=== PATIENT | male | born 1965 | race Caucasian/White ===

== ENCOUNTER 2016-08-26 08:13 | Emergency (ER) | payer OTHER ==
[2016-08-26] MEDS ORDERED: SODIUM CHLORIDE 0.9% 1,000 ML IV STA (08:15)
[2016-08-26] MEDS ORDERED: ONDANSETRON 4 MG/2 ML VIAL IVP STA (08:15)
[2016-08-26 08:35] VITALS: RESP 18
[2016-08-26] MEDS ORDERED: MORPHINE SULFATE 4 MG/ML SYRINGE IVP STA (08:40)
[2016-08-26] MEDS ORDERED: cloNIDine HCL 0.1 MG TAB PO STA (08:44)
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
[2016-08-26 09:02] LABS: Basophils % (A) 0 %; CH 30.2; CHCM 34.5; Eosinophils # (A) 0.2 k/uL (0-0.7); Eosinophils % (A) 1 %; HCT 49.3 % (39.0-53.0); HDW 2.41; HGB 16.8 gm/dL (13.0-17.5); Luc # (Auto) 0.15; Luc % (Auto) 1; Lymphocytes # (A) 1.6 k/uL (1.0-4.8); Lymphocytes % (A) 15 %; MCH 29.9 pg (25.0-35.0); Mean Platelet Volume 6.5; Monocytes # (A) 0.6 k/uL (0-1.0); Monocytes % (A) 5 %; Neutrophils # (A) 8.2 k/uL (1.3-7.7); Neutrophils % (A) 76 %; RBC 5.61 m/uL (4.30-5.90); RDW 13.6 % (11.5-15.5); WBC 10.7 k/uL (3.8-10.6); WBC (Perox) 10.59
[2016-08-26 09:12] LABS: ALT 49 U/L (21-72); AST 30 U/L (17-59); Alkaline Phosphatase 80 U/L (38-126); Amylase 71 U/L (30-110); Anion Gap 12 mmol/L; Blood Urea Nitrogen 12 mg/dL (9-20); Calcium 9.7 mg/dL (8.4-10.2); Carbon Dioxide 21 mmol/L (22-30); Chloride 108 mmol/L (98-107); Glucose 143 mg/dL (74-99); Non-African American GFR(MDRD) >60 (>60 ml/min/1.73 sqM); Sodium 141 mmol/L (137-145); Total Bilirubin 0.7 mg/dL (0.2-1.3); Total Protein 7.2 g/dL (6.3-8.2)
[2016-08-26] MEDS ORDERED: DILTIAZEM 5 MG/ML 5 ML VIAL IVP STA ×2 (09:14→10:23)
[2016-08-26 09:25] LABS: Potassium 4.6 mmol/L (3.5-5.1)
[2016-08-26] MEDS ORDERED: APIXABAN 5 MG TAB PO STA (09:59)
--- NOTE | 2016-08-26 10:01 | XR ---
EXAMINATION TYPE: XR chest 2V DATE OF EXAM: 08/26/2016 9:32 AM COMPARISON: None HISTORY: 50-year-old male with chest and back pain TECHNIQUE: AP and lateral views FINDINGS: The heart is upper limits of normal in size. Aorta within normal limits. There is some focal patchy r ight basilar opacity that has a somewhat linear configuration. Mild diffuse interstitial prominence i s a chronic appearance. Otherwise, no consolidation or pleural effusion. IMPRESSION: Some atelectasis or early infiltrate at the right base, the former is favored. Otherwise, there are c hronic appearing changes.
--- NOTE | 2016-08-26 10:13 | XR ---
EXAMINATION TYPE: XR KUB DATE OF EXAM: 08/26/2016 9:18 AM CLINICAL DATA: 50 year-old male abdominal pain, PHH COMPARISON: None FINDINGS: Lung bases are clear. Supine imaging limited for assessment of free air. No significant stool burden. Scattered mild stool is present. No dilated small bowel loops. Scattered pelvic phleboliths. IMPRESSION: Nonobstructive bowel gas pattern. Mild scattered stool.
[2016-08-26 11:06] VITALS: BP 140/82; PULSE 97; TEMP 98.3
== END 2016-08-26 11:09 | disposition home or self-care (01) ==
LOC: EC 08:13
DX: R11.2 Nausea with vomiting, unspecified (principal); I48.91 Unspecified atrial fibrillation; F11.23 Opioid dependence with withdrawal; G89.29 Other chronic pain; K21.9 Gastro-esophageal reflux disease without esophagitis; E78.5 Hyperlipidemia, unspecified; I10 Essential (primary) hypertension; F32.9 Major depressive disorder, single episode, unspecified; F17.200 Nicotine dependence, unspecified, uncomplicated; Z79.899 Other long term (current) drug therapy
CPT/HCPCS: 36415; 93005; 80053; 82150; 83690; 84484; 85025; 71020; 74000; 99285; 96374; 96375 ×2; 96376; 96361; J2270; J2405

== ENCOUNTER 2019-03-24 19:02 | Emergency (ER) | payer MEDICARE, OTHER ==
[2019-03-24] MEDS ORDERED: MORPHINE SULFATE 4 MG/ML SYRINGE IV STA (19:40)
[2019-03-24] MEDS ORDERED: SODIUM CHLORIDE 0.9% 500 ML 500 ML IV STA ×2 (19:40→23:12)
--- NOTE | 2019-03-24 20:07 | XR ---
EXAMINATION TYPE: XR chest 2V DATE OF EXAM: 03/24/2019 COMPARISON: 08/26/2016 HISTORY: Chest pain TECHNIQUE: 2 views FINDINGS: Heart and mediastinum are normal. Lungs are clear. Diaphragm is normal. Bony thorax appears normal. IMPRESSION: Normal chest. No change.
--- NOTE | 2019-03-24 20:22 | CT ---
EXAMINATION TYPE: CT brain lavonneine wo con DATE OF EXAM: 03/24/2019 COMPARISON: None HISTORY: Headache and neck pain. CT DLP: 1413.6 mGycm Automated exposure control for dose reduction was used. Ventricles have normal size. There is no mass effect nor midline shift. There is no sign of intracran ial hemorrhage. Calvarium is intact. Skull base appears intact. Cervical vertebra have normal alignment. There is degenerative disc space narrowing at C5-6 with spur ring of the endplates. Facet joints are intact. There is no evidence of a fracture. There is mild [place] rowing at C6-7 disc. IMPRESSION: Negative CT scan of the brain. Moderate spondylotic changes in the lower cervical spine. No fracture.
--- NOTE | 2019-03-24 21:26 | ED ---
General Adult HPI - General Chief complaint: Headache Stated complaint: Headache Time Seen by Provider: 03/24/19 19:17 Source: EMS, RN notes reviewed, old records reviewed Mode of arrival: EMS Limitations: no limitations - History of Present Illness Initial comments: 53-year-old male patient with past history significant for atrial fibrillation, hypertension, hyperlipidemia presents to ED for chief complaint of headache and neck pain. Reports that the back pain is chronic from the headache just began today, describes it as located in the frontal lobe. Denies worst headache of life, not thunderclap onset. Patient is a relatively poor historian. Patient reports that he had a recent admission to [facility] for reported heart attack. Patient denies any surgery. Patient reports that he has recommended outpatient cardiac catheterization. His anticoagulated on eliquis. Denies any other complaints at this time. Denies chest pain or short of breath at this time. Systemic: Pt denies fatigue, fever/chills, rash. Pt denies weakness, night sweats, weight loss. Neuro: Pt denies visual disturbances, syncope or pre-syncope. HEENT: Pt denies ocular discharge or irritation, otalgia, rhinorrhea, pharyngitis or notable lymphadenopathy. Cardiopulmonary: Pt denies chest pain, SOB, heart palpitations, dyspnea on exertion. Abdominal/GI: Pt denies abdominal pain, n/v/d. : Pt denies dysuria, burning w/ urination, frequency/urgency. Denies new onset urinary or bowel incontinence. MSK: Pt denies myalgia, loss of strength or function in extremities. Neuro: Pt denies new onset weakness, paresthesias. - Related Data Home Medications Medication Instructions Recorded Confirmed Acetaminophen Tab [Tylenol Tab] 650 mg PO Q6HR PRN 08/26/16 08/26/16 Apixaban [Eliquis] 5 mg PO BID 08/26/16 08/26/16 Atorvastatin [Lipitor] 20 mg PO DAILY 08/26/16 08/26/16 Cyclobenzaprine [Flexeril] 10 mg PO BID 08/26/16 08/26/16 DULoxetine HCL [Cymbalta] 60 mg PO BID 08/26/16 08/26/16 Diclofenac Potassium [Cataflam] 50 mg PO TID 08/26/16 08/26/16 Diltiazem HCl [Diltiazem ER] 360 mg PO DAILY 08/26/16 08/26/16 Furosemide [Lasix] 20 mg PO DAILY 08/26/16 08/26/16 Gabapentin [Neurontin] 100 mg PO TID 08/26/16 08/26/16 HYDROcodone/APAP 10-325MG [[place] 1 tab PO Q6H PRN 08/26/16 08/26/16 10-325] Ranitidine HCl [Zantac] 150 mg PO DAILY PRN 08/26/16 08/26/16 busPIRone HCL [Buspar] 7.5 mg PO BID 08/26/16 08/26/16 cloNIDine HCL [Catapres] 0.1 mg PO Q12HR 08/26/16 08/26/16 Previous Rx's Medication Instructions Recorded HYDROcodone/APAP 10-325MG [[place] 1 tab PO Q6H PRN #20 tab 08/26/16 10-325] Allergies Allergy/AdvReac Type Severity Reaction Status Date / Time No Known Allergies Allergy Verified 03/24/19 19:05 Review of Systems ROS Statement: Those systems with pertinent positive or pertinent negative responses have been documented in the HPI. ROS Other: All systems not noted in ROS Statement are negative. Past Medical History Past Medical History: Diabetes Mellitus, GERD/Reflux, Hyperlipidemia, Hypertension, Myocardial Infarction (CT) History of Any Multi-Drug Resistant Organisms: None Reported Past Surgical History: Orthopedic Surgery Past Psychological History: No Psychological Hx Reported, Depression Smoking Status: Current every day smoker Past Alcohol Use History: None Reported Past Drug Use History: None Reported General Exam - General Exam Comments Initial Comments: Constitutional: NAD, AOX3, Pt has pleasant affect. HEENT: NC/AT, trachea midline, neck supple, no lymphadenopathy. Posterior pharynx non erythematous, without exudates. External ears appear normal, without discharge. Mucous membranes moist. Eyes PERRLA, EOM intact. There is no scleral icterus. No pallor noted. Cardiopulmonary: RRR, no murmurs, rubs or gallops, no JVD noted. Lungs CTAB in anterior and posterior marroquin. No peripheral edema. Abdominal exam: Abdomen soft and non-distended. Abdomen non-tender to palpation in all 4 quadrants. Bowel sounds active in LLQ. No hepatosplenomegaly. No ecchymosis Neuro: CN II-XII intact. No nuchal rigidity. No raccon eyes, no downs sign, no hemotympanum. No cervical spinal tenderness. MSK: No posterior calf tenderness bilaterally, homans sign negative bilaterally. Posterior tibialis and radial pulse +2 bilaterally. Sensation intact in upper and lower extremities. Full active ROM in upper and lower extremities, 5/5 stregnth. Limitations: no limitations Course Vital Signs 03/24/19 19:05 Temperature 99.1 F Pulse Rate 81 Respiratory 16 Rate Blood Pressure 116/89 O2 Sat by Pulse 95 Oximetry Medical Decision Making - Medical Decision Making 53-year-old male patient with past history significant for atrial fibrillation, hypertension, hyperlipidemia presents to ED for chief complaint of headache and neck pain. Reports that the back pain is chronic from the headache just began today, describes it as located in the frontal lobe. Denies worst headache of life, not thunderclap onset. Patient is a relatively poor historian. Patient reports that he had a recent admission to [facility] for reported heart attack. Patient denies any surgery. Patient reports that he has recommended outpatient cardiac catheterization. His anticoagulated on eliquis. Denies any other complaints at this time. Denies chest pain or short of breath at this time. Patient vital signs stable, afebrile. physical exam did not display acute pathology. Neurologic exam within normal limits. Investigation non-impressive. EKG displayed a 2 fibrillation. Patient's history of this and is rate controlled and anticoagulated. Troponin 0.022. CT brain these findings acute process. I was finally change in lower cervical spine. Chest x-ray did not display acute process. Chart review from [facility] displayed that patient had atrial fibrillation with rapid ventricular response and a troponin elevation. when patient was prepared for discharge his heart rate increased into the 120s. Patient revealed that he had not taken his dose of Cardizem. Patient was given his home dose as well as a bolus. Was signed out to Dr. Zavala pending response with rate control. - Lab Data Result diagrams: 03/24/19 21:03 03/24/19 21:03 Lab Results 03/24/19 03/24/19 03/24/19 Range/Units 21:03 21:03 21:03 WBC 6.5 (3.8-10.6) k/uL RBC 4.81 (4.30-5.90) m/uL Hgb 13.9 (13.0-17.5) gm/dL Hct 41.6 (39.0-53.0) % MCV 86.5 (80.0-100.0) fL MCH 28.9 (25.0-35.0) pg MCHC 33.4 (31.0-37.0) g/dL RDW 14.2 (11.5-15.5) % Plt Count 274 (150-450) k/uL Neutrophils % 73 % Lymphocytes % 16 % Monocytes % 5 % Eosinophils % 2 % Basophils % 1 % Neutrophils # 4.8 (1.3-7.7) k/uL Lymphocytes # 1.1 (1.0-4.8) k/uL Monocytes # 0.4 (0-1.0) k/uL Eosinophils # 0.1 (0-0.7) k/uL Basophils # 0.1 (0-0.2) k/uL PT 10.3 (9.0-12.0) sec INR 1.0 (<1.2) APTT 26.6 (22.0-30.0) sec Sodium 134 L (137-145) mmol/L Potassium 4.0 (3.5-5.1) mmol/L Chloride 105 (98-107) mmol/L Carbon Dioxide 23 (22-30) mmol/L Anion Gap 6 mmol/L BUN 10 (9-20) mg/dL Creatinine 0.71 (0.66-1.25) mg/dL Est GFR (CKD-EPI)AfAm >90 (>60 ml/min/1.73 sqM) Est GFR (CKD-EPI)NonAf >90 (>60 ml/min/1.73 sqM) Glucose 92 (74-99) mg/dL Calcium 8.9 (8.4-10.2) mg/dL Magnesium 1.9 (1.6-2.3) mg/dL Total Bilirubin 0.6 (0.2-1.3) mg/dL AST 29 (17-59) U/L ALT 49 (4-49) U/L Alkaline Phosphatase 116 (38-126) U/L Troponin I (0.000-0.034) ng/mL Total Protein 6.4 (6.3-8.2) g/dL Albumin 3.8 (3.5-5.0) g/dL 03/24/19 Range/Units 21:03 WBC (3.8-10.6) k/uL RBC (4.30-5.90) m/uL Hgb (13.0-17.5) gm/dL Hct (39.0-53.0) % MCV (80.0-100.0) fL MCH (25.0-35.0) pg MCHC (31.0-37.0) g/dL RDW (11.5-15.5) % Plt Count (150-450) k/uL Neutrophils % % Lymphocytes % % Monocytes % % Eosinophils % % Basophils % % Neutrophils # (1.3-7.7) k/uL Lymphocytes # (1.0-4.8) k/uL Monocytes # (0-1.0) k/uL Eosinophils # (0-0.7) k/uL Basophils # (0-0.2) k/uL PT (9.0-12.0) sec INR (<1.2) APTT (22.0-30.0) sec Sodium (137-145) mmol/L Potassium (3.5-5.1) mmol/L Chloride (98-107) mmol/L Carbon Dioxide (22-30) mmol/L Anion Gap mmol/L BUN (9-20) mg/dL Creatinine (0.66-1.25) mg/dL Est GFR (CKD-EPI)AfAm (>60 ml/min/1.73 sqM) Est GFR (CKD-EPI)NonAf (>60 ml/min/1.73 sqM) Glucose (74-99) mg/dL Calcium (8.4-10.2) mg/dL Magnesium (1.6-2.3) mg/dL Total Bilirubin (0.2-1.3) mg/dL AST (17-59) U/L ALT (4-49) U/L Alkaline Phosphatase (38-126) U/L Troponin I 0.022 (0.000-0.034) ng/mL Total Protein (6.3-8.2) g/dL Albumin (3.5-5.0) g/dL Disposition Clinical Impression: Atrial fibrillation, Headache Referrals: Nonstaff,Physician [Primary Care Provider] - 1-2 days
[2019-03-24 21:29] LABS: Basophils # (A) 0.1 k/uL (0-0.2); Basophils % (A) 1 %; Eosinophils # (A) 0.1 k/uL (0-0.7); Eosinophils % (A) 2 %; HCT 41.6 % (39.0-53.0); HGB 13.9 gm/dL (13.0-17.5); Lymphocytes # (A) 1.1 k/uL (1.0-4.8); Lymphocytes % (A) 16 %; MCH 28.9 pg (25.0-35.0); MCHC 33.4 g/dL (31.0-37.0); MCV 86.5 fL (80.0-100.0); Monocytes # (A) 0.4 k/uL (0-1.0); Monocytes % (A) 5 %; Neutrophils # (A) 4.8 k/uL (1.3-7.7); Neutrophils % (A) 73 %; Platelet Count 274 k/uL (150-450); RBC 4.81 m/uL (4.30-5.90); RDW 14.2 % (11.5-15.5); WBC 6.5 k/uL (3.8-10.6)
[2019-03-24 21:38] LABS: ALT 49 U/L (4-49); AST 29 U/L (17-59); African American GFR (CKD) >90 (>60 ml/min/1.73 sqM); Albumin 3.8 g/dL (3.5-5.0); Alkaline Phosphatase 116 U/L (38-126); Anion Gap 6 mmol/L; Blood Urea Nitrogen 10 mg/dL (9-20); Calcium 8.9 mg/dL (8.4-10.2); Carbon Dioxide 23 mmol/L (22-30); Chloride 105 mmol/L (98-107); Glucose 92 mg/dL (74-99); Magnesium 1.9 mg/dL (1.6-2.3); Non-African American GFR(CKD) >90 (>60 ml/min/1.73 sqM); Sodium 134 mmol/L (137-145); Total Bilirubin 0.6 mg/dL (0.2-1.3); Total Protein 6.4 g/dL (6.3-8.2)
[2019-03-24 21:40] LABS: Partial Thromboplastin Time 26.6 sec (22.0-30.0); Prothrombin Time 10.3 sec (9.0-12.0)
[2019-03-24] MEDS ORDERED: DILTIAZEM 5 MG/ML 5 ML VIAL IVP STA (23:19)
[2019-03-24] MEDS ORDERED: DILTIAZEM ORAL 60 MG TAB PO ONE (23:30)
[2019-03-24] MEDS ORDERED: DILTIAZEM 125 MG in SODIUM CHLORIDE 0.9% 100 ML IV SCH (23:30)
[2019-03-24] MEDS ORDERED: DILTIAZEM ORAL 60 MG TAB PO STA (23:48)
[2019-03-25] MEDS ORDERED: HYDROcodone/APAP 10-325MG 1 EACH TAB PO ONE (00:19)
[2019-03-25 00:44] VITALS: RESP 17
[2019-03-25 01:22] VITALS: BP 107/95; PULSE 70; TEMP 97.9
== END 2019-03-25 01:35 | disposition home or self-care (01) ==
LOC: EC 19:02
DX: I48.91 Unspecified atrial fibrillation (principal); R51 Headache; M54.2 Cervicalgia; M54.9 Dorsalgia, unspecified; I10 Essential (primary) hypertension; E78.5 Hyperlipidemia, unspecified; E11.9 Type 2 diabetes mellitus without complications; I25.2 Old myocardial infarction; F32.9 Major depressive disorder, single episode, unspecified; F17.200 Nicotine dependence, unspecified, uncomplicated; Z79.01 Long term (current) use of anticoagulants; Z79.899 Other long term (current) drug therapy
CPT/HCPCS: 36415; 93005; 80053; 83735; 84484; 85025; 85610; 85730; 71046; 72125; 70450; 99285; 96374; 96375; 96361 ×2; J2270

== ENCOUNTER 2019-03-29 13:22 | Inpatient (IN) | payer MEDICARE, OTHER ==
[2019-03-29] MEDS ORDERED: HEPARIN SODIUM 1,000 UN/ML (10ML VL) ONE (14:46)
[2019-03-29] MEDS ORDERED: VERAPAMIL 2.5 MG/ML 2 ML AMP ONE (14:46)
[2019-03-29] MEDS ORDERED: LIDOCAINE 1% INJ 10MG/ML (20 ML MDV) ONE (14:46)
[2019-03-29] MEDS ORDERED: SODIUM CHLORIDE 0.9% 500 ML 500 ML IV ONE (14:47)
[2019-03-29] MEDS ORDERED: MIDAZOLAM 2 MG/2 ML VIAL IVP ONE (15:09)
[2019-03-29] MEDS ORDERED: LIDOCAINE 1% INJ 10MG/ML (20 ML MDV) SQ ONE (15:11)
[2019-03-29] MEDS: VERAPAMIL SYRINGE (5 MG/10 ML) INTRAARTER ONE ×3 (15:12→15:26)
[2019-03-29] MEDS ORDERED: BIVALIRUDIN BOLUS 250 MG/50 ML IV ONE (15:14)
[2019-03-29] MEDS ORDERED: BIVALIRUDIN 250 MG in SODIUM CHLORIDE 0.9% 50 ML IV ONE (15:15)
[2019-03-29] MEDS ORDERED: CLOPIDOGREL 75 MG TAB ONE (15:17)
[2019-03-29] MEDS ORDERED: CLOPIDOGREL 75 MG TAB PO ONE (15:24)
[2019-03-29] MEDS ORDERED: IOPAMIDOL-370 125ML BTL INJ ONE (15:28)
[2019-03-29] MEDS ORDERED: HYDROcodone/APAP 10-325MG 1 EACH TAB PO PRN (15:31)
[2019-03-29] MEDS ORDERED: ACETAMINOPHEN TAB 325 MG TAB PO PRN (15:31)
[2019-03-29] MEDS ORDERED: FAMOTIDINE 20 MG TAB PO PRN (15:31)
[2019-03-29] MEDS ORDERED: NITROGLYCERIN SL TABS 0.4 MG TAB SUBLINGUAL PRN (15:33)
[2019-03-29] MEDS ORDERED: ZOLPIDEM 5 MG TAB PO PRN (15:33)
[2019-03-29] MEDS ORDERED: RX INFO: IV CONTRAST WAS GIVEN 1 EACH MISC MISCELLANE PRN (15:33)
[2019-03-29] MEDS ORDERED: MAG HYDROX/AL HYDROX/SIMETH 30 ML CUP PO PRN (15:33)
[2019-03-29] MEDS ORDERED: ATROPINE SULFATE 0.1 MG/ML 10ML SYRINGE IV PRN (15:33)
[2019-03-29] MEDS ORDERED: SODIUM CHLORIDE 0.9% 1,000 ML IV ONE (15:34)
[2019-03-29] MEDS ORDERED: SODIUM CHLORIDE 0.9% 1,000 ML IV SCH (15:45)
[2019-03-29] MEDS ORDERED: GABAPENTIN 100 MG CAP PO SCH (16:00)
--- NOTE | 2019-03-29 16:17 | PTCA ---
PERCUTANEOUSTRANS CORORONARY ANGIOGRAPHY DATE OF SERVICE: 03/29/2019 PERFORMING PHYSICIAN: Cassius Biggs M.D. PROCEDURE PERFORMED: Successful stenting of the mid right coronary artery using a 3.5 x 18 mm Xience drug- eluting stent which was post dilated using 3.75 mm noncompliant balloon with an excellent angiographic result and reduction of stenosis from 70% to 0%. INDICATION: This is a 53-year-old gentleman with hypertension and dyslipidemia who presented to [facility] a few weeks ago with chest discomfort and was ruled in for acute [id number]-cetxhhibw myocardial infarction. At that point heart catheterization was not performed because the patient was septic. He was treated medically and presented back to the hospital with chest discomfort. He underwent a heart catheterization at [facility] that revealed intermediate to severe lesion involving the mid right coronary artery. The patient during the night was experiencing episodes of nonsustained ventricular tachycardia as well as bradycardia. Dr. Grimaldo recommended proceeding with PCI of the RCA. APPROACH: Right radial artery. COMPLICATIONS: None. LEVEL OF SEDATION: Moderate, with sedation length of 16 minutes. PROCEDURE DESCRIPTION: Please refer to diagnostic heart catheterization that was performed by me at [facility]. The right radial artery was cannulated using micropuncture technique. The micropuncture wire passed easily. Then I placed a 5-Divehi sheath. After that, anticoagulation was initiated using Angiomax. I did engage the right coronary artery using a JR4 guide. I did wire it using a run-through wire. After that, I did direct stenting of the lesion using a 3.5 x 18 mm Xience ADRIANA where the stent was positioned under fluoroscopic guidance and deployed under 20 atmospheres for 20 seconds. The following angiogram showed that the stent was slightly under-deployed, and because of that I decided to post dilate the stent using a 3.75 mm NC balloon. The balloon was inflated under 20 atmospheres for 20 seconds with the following angiogram showing excellent angiographic results. The procedure was completed without any complication. POST-PROCEDURE MANAGEMENT: 1. Dual anti-platelet therapy. 2. Risk factor modifications. 3. Follow up with the patient. MMODL / IJN: [id number] /
[2019-03-29] MEDS: DILTIAZEM ORAL 60 MG TAB PO SCH (20:53)
[2019-03-29] MEDS: cloNIDine HCL 0.1 MG TAB PO SCH (20:53)
[2019-03-29] MEDS: FUROSEMIDE 20 MG TAB PO SCH (20:53)
[2019-03-29] MEDS: DULoxetine HCL 60 MG CAPSULE.DR PO SCH (20:53)
[2019-03-29] MEDS ORDERED: DULoxetine HCL 60 MG CAPSULE.DR PO SCH (21:00)
[2019-03-29] MEDS ORDERED: busPIRone HCl 5 MG TAB PO SCH (21:00)
[2019-03-29] MEDS ORDERED: CYCLOBENZAPRINE 10 MG TAB PO PRN (21:00)
[2019-03-29] MEDS ORDERED: cloNIDine HCL 0.1 MG TAB PO SCH (21:00)
[2019-03-29] MEDS ORDERED: ETODOLAC 200 MG CAPSULE PO SCH (22:00)
[2019-03-29] MEDS: HYDROcodone/APAP 7.5-325MG 1 EACH TAB PO PRN (23:01)
[2019-03-30 06:31] LABS: African American GFR (CKD) >90 (>60 ml/min/1.73 sqM); Non-African American GFR(CKD) >90 (>60 ml/min/1.73 sqM)
[2019-03-30] MEDS: HYDROcodone/APAP 7.5-325MG 1 EACH TAB PO PRN ×2 (06:41→15:51)
[2019-03-30] MEDS: cloNIDine HCL 0.1 MG TAB PO SCH (08:37)
[2019-03-30] MEDS: FUROSEMIDE 20 MG TAB PO SCH (08:38)
[2019-03-30] MEDS: DILTIAZEM ORAL 60 MG TAB PO SCH ×2 (08:38→15:51)
[2019-03-30] MEDS: DULoxetine HCL 60 MG CAPSULE.DR PO SCH (08:38)
[2019-03-30 08:52] VITALS: RESP 17; TEMP 98.7
[2019-03-30] MEDS ORDERED: DILTIAZEM CD 180 MG CAP.ER.24H PO SCH (09:00)
[2019-03-30] MEDS ORDERED: ATORVASTATIN 20 MG TAB PO SCH (09:00)
[2019-03-30] MEDS ORDERED: ASPIRIN 325 MG TAB PO SCH (09:00)
[2019-03-30] MEDS ORDERED: APIXABAN 2.5 MG TABLET PO SCH (11:00)
[2019-03-30 11:12] VITALS: BMI 25.0
[2019-03-30] MEDS: METOPROLOL TARTRATE 50 MG TAB PO SCH (11:27)
[2019-03-30] MEDS ORDERED: CLOPIDOGREL 75 MG TAB PO SCH (12:00)
[2019-03-30] MEDS ORDERED: IPRATROPIUM-ALBUTEROL 3 ML NEB INHALATION STA (13:25)
--- NOTE | 2019-03-30 13:25 | P.PN ---
Subjective This is a 53-year-old male past medical history significant for coronary artery disease, hypertension, dyslipidemia, diabetes mellitus, chronic persistent atrial fibrillation on long-term anticoagulation and chronic nicotine dependence. He was transferred from [facility] after initial cardiac catheterization revealed intermediate to severe disease of the mid RCA. He underwent successful PCI with drug-eluting stent per Dr. Calhoun yesterday. He is seen and examined sitting up in bed in no acute distress. He denies chest pain, shortness of breath, dizziness or palpitations. EKG obtained this morning reveals atrial fibrillation with mildly rapid ventricular rate of 114. Blood pressure 141/93, afebrile maintaining oxygen saturation on room air. Laboratory data reviewed, creatinine 0.84. GENERAL: Well-appearing, well-nourished and in no acute distress. NECK: Supple without JVD or thyromegaly. LUNGS: Faint expiratory wheeze. No rales or rhonchi. Respiration equal and unlabored. HEART: Irregular rate and rhythm without murmurs, rubs or gallops. S1 and S2 heard. EXTREMITIES: Normal range of motion, no edema. No clubbing or cyanosis. Peripheral pulses intact. ASSESSMENT Coronary artery disease status post successful PCI Unstable angina on admission Hypertension Dyslipidemia Diabetes mellitus Chronic persistent atrial fibrillation on long-term anticoagulation Chronic nicotine dependence PLAN Importance of to antiplatelet therapy discussed at length with the patient. We will decrease his Eliquis to 2.5 mg for the next 4-6 weeks. He is to take this along with aspirin 81 mg daily and Plavix 75 mg daily. Resume Lopressor 50 mg twice a day. Stable for discharge from a cardiac perspective, follow-up in the office in 1- week. Nurse Practitioner note has been reviewed, I agree with a documented findings and plan of care. Patient was seen and examined. Objective - Vital Signs Vital signs: Vital Signs Temp 98.7 F 03/30/19 08:00 Pulse 103 H 03/30/19 08:00 Resp 17 03/30/19 08:00 BP 141/93 03/30/19 08:00 Pulse Ox 95 03/30/19 08:00 Intake & Output 03/29/19 03/30/19 03/30/19 18:59 06:59 18:59 Intake Total 875 0 Balance 875 0 Weight 73.4 kg 68.3 kg 68.3 kg Intake: IV 875 Sodium Chloride 0.9% 1, 150 000 ml @ 75 mls/hr IV . [id number] [facility] Rx#:[id number] Oral 0 Other: # Voids 2 - Labs CBC & Chem 7: 03/30/19 05:58
[2019-03-30 13:27] VITALS: BP 147/103; PULSE 68
--- NOTE | 2019-03-30 20:26 | PN ---
PROGRESS NOTE DATE OF SERVICE: March 30, 2019. CHIEF COMPLAINT: Coronary artery disease. HISTORY OF PRESENT ILLNESS: This gentleman underwent his procedure yesterday and, apparently, seems to be stable today without any arrhythmias. He may be going home today. PHYSICAL EXAMINATION: Chest is clear. Cardiac exam is normal. Abdomen is soft, nontender. IMPRESSION: 1. Coronary artery disease. 2. Unstable angina pectoris. 3. Recent myocardial infarction. 4. Episodes of ventricular tachycardia. PLAN: Continue to work with Cardiology, but he may be going home today. MMODL / IJN: [id number] /
--- NOTE | 2019-03-30 20:26 | PN ---
PROGRESS NOTE CHIEF COMPLAINT: Coronary artery disease and ventricular tachycardia. HISTORY OF PRESENT ILLNESS: This gentleman underwent his intervention yesterday. He is doing well. He has had no further chest pain or arrhythmias. PHYSICAL EXAMINATION: Chest is clear. Cardiac exam is normal. Abdomen is soft, nontender. IMPRESSION: 1. Coronary artery disease. 2. Ventricular tachycardia. PLAN: Increase activity and await recommendations from Cardiology. MMODL / IJN: [id number] /
--- NOTE | 2019-03-30 21:29 | CONS ---
CONSULTATION CHIEF COMPLAINT: Chest pain and ventricular tachycardia. HISTORY OF PRESENT ILLNESS: This gentleman was admitted to [facility] for unstable angina. He had a myocardial infarction several weeks ago. He was taken for cardiac cath and found to have narrowed vessel, but it was not felt necessary to place a stent. However, postoperatively, started to have trouble with sustained runs of ventricular tachycardia and was transferred to [facility] for cardiac cath and stenting of the narrow lesion. REVIEW OF SYSTEMS: He has had no headaches, CVAs, TIAs, problems with vision or hearing, cough, hemoptysis, etc. He does have a history of shortness of breath and COPD. He has had no rheumatic fever. He had no orthopnea or PND. He has had no abdominal pain vomiting and diarrhea, melena, renal failure, dysuria, frequency, urgency, incontinence, diabetes, etc. Past medical history, family history and personal and social histories can be found in his admitting summary as well documents from [facility]. PHYSICAL EXAMINATION: Blood pressure 135/88 with a pulse of 73, respirations of 22, and he is afebrile. GENERAL: He appeared to be in no acute distress. Skin color is normal. Skin is warm, dry. Lymph nodes not enlarged. Head, ears, eyes, nose, mouth, and throat were normal and neck veins not distended. Thyroid is not enlarged. CHEST: Clear. Cardiac exam is normal. Abdomen is soft, nontender. Extremities: Normal. Neurologic was intact. IMPRESSION: 1. Coronary artery disease. 2. Status post recent myocardial infarction. 3. Ventricular tachycardia. 4. Chronic obstructive pulmonary disease. 5. Low back pain. PLAN: The patient is going to be going for cardiac cath and stenting. MMODL / IJN: [id number] /
[2019-03-31] MEDS ORDERED: ASPIRIN 81 MG PO SCH (09:00)
--- NOTE | 2019-04-11 22:53 | CDI ---
Documentation Clarification Form Date: 04/12/2019 From: Andres Granados Phone: If you have a question about this query, please contact Tanisha Beltran, Sales Office Manager at [phone] between 8am and 5pm. Admit Date: 03/29/19 Discharge Date: 03/30/19 Patient Name: Carmine Walker Visit Number: [id number] ATTENTION: The Clinical Documentation Specialists (CDI) and [facility] Coding Staff appreciate your assistance in clarifying documentation. Please respond to the clarification below the line at the bottom and electronically sign. The CDI & [facility] Coding staff will review the response and follow-up if needed. Please note: Queries are made part of the Legal Health Record. If you have any questions, please contact the author of this message via ITS. Dear Reinaldo Koo, This is a 53-year-old gentleman with hypertension and dyslipidemia who presented to [facility] a few weeks ago with chest discomfort and was ruled in for acute dji-CX-phszoyptq myocardial infarction. Patient History/Risk Factors: CAD, Angina, ventricular tachycardia. Clinical Indicators: Troponin: NA EKG Results:EKG obtained this morning reveals atrial fibrillation with mildly rapid ventricular rate of 114 Treatment:He was transferred from [facility] after initial cardiac catheterization revealed intermediate to severe disease of the mid RCA.He underwent successful PCI with drug-eluting stent Consult: Dr.Skaf Hammonds In order to capture the severity of condition and necessary documentation specificity, please clarify: Age of infarction if known Acute WI (within the last 4 weeks) Subsequent WI (another WI within 4 weeks) New Acute WI - (another WI after 4 weeks) Old WI (WI more than 4 weeks old) Specific date if known: Unable to determine MTDD
--- NOTE | 2019-04-20 15:33 | MISC ---
MISCELLANOUS REPORT Age: Unknown. MMODL / IJN: [id number] /
--- NOTE | 2019-04-26 17:56 | MISC ---
MISCELLANOUS REPORT Age of infarction unable to determine. MMODL / IJN: [id number] /
== END 2019-03-30 16:18 | disposition home or self-care (01) | DRG 247 ==
LOC: 2ORMAIN 14:40 → 3SCARD 18:03
PROVIDERS: ADMIT Family Medicine; ATTEND Family Medicine
PROC: 027034Z Dilation of Coronary Artery, One Artery with Drug-eluting Intraluminal Device, Percutaneous Approach (ICD-10-PCS; principal; 2019-03-29 14:40)
DX: I25.110 Atherosclerotic heart disease of native coronary artery with unstable angina pectoris (principal); I47.2 Ventricular tachycardia; I48.19 Other persistent atrial fibrillation; E11.9 Type 2 diabetes mellitus without complications; E78.5 Hyperlipidemia, unspecified; F17.200 Nicotine dependence, unspecified, uncomplicated; I10 Essential (primary) hypertension; J44.9 Chronic obstructive pulmonary disease, unspecified; I25.2 Old myocardial infarction; Z79.01 Long term (current) use of anticoagulants
CPT/HCPCS: 82565; C1874

== ENCOUNTER 2019-04-02 17:50 | Inpatient (IN) | payer MEDICARE, OTHER ==
[2019-04-02] MEDS ORDERED: MORPHINE SULFATE 4 MG/ML SYRINGE IV STA (17:57)
[2019-04-02] MEDS ORDERED: SODIUM CHLORIDE 0.9% 1,000 ML IV STA ×2 (17:57)
[2019-04-02] MEDS ORDERED: MORPHINE SULFATE 4 MG/ML SYRINGE IVP STA (17:57)
--- NOTE | 2019-04-02 17:57 | ED ---
Chest Pain HPI - General Stated Complaint: A fib Time Seen by Provider: 04/02/19 17:51 Source: RN notes reviewed, old records reviewed Limitations: no limitations - History of Present Illness Initial Comments: this is a 53-year-old male date ER for evaluation of weakness patient feels exam palpitations. Patient had recent stent placement erring shortness of breath and chest pain today. Patient also was to being out of his [place] for the last 3 days he has gone through withdrawal before and it feels similar to his chronic condition. He is having active nausea and vomiting. Loose stools. Chills and mild shakes. Patient also scooping of chest pain per EMS was improved with nitro. Patient able medications as prescribed he is on anticoagulation with Eliquis. MD Complaint: chest pain -: hour(s) Onset: during rest Pain Location: substernal, left chest Pain Radiation: back Severity: moderate Severity scale (1-10): 6 Quality: aching, heaviness Consistency: intermittent Improves With: nitroglycerin Worsens With: nothing Context: recent illness, other (recent stent placement) Anginal Symptoms: nausea, diaphoresis, dyspnea Other Symptoms: palpitations Treatments Prior to Arrival: none - Related Data Home Medications Medication Instructions Recorded Confirmed Furosemide [Lasix] 20 mg PO BID 08/26/16 03/29/19 DULoxetine HCL [Cymbalta] 60 mg PO BID 03/29/19 03/29/19 HYDROcodone/APAP 7.5-325MG [[place] 1 tab PO TID PRN 03/29/19 03/29/19 7.5-325] Previous Rx's Medication Instructions Recorded Apixaban [Eliquis] 2.5 mg PO BID #90 tablet 03/30/19 Aspirin 81 mg PO DAILY chew 03/30/19 Clopidogrel [Plavix] 75 mg PO DAILY #180 tab 03/30/19 Diltiazem Oral [Cardizem*] 60 mg PO TID #270 tab 03/30/19 Famotidine [Pepcid] 20 mg PO DAILY PRN #30 tab 03/30/19 Metoprolol Tartrate [Lopressor] 100 mg PO BID #180 tab 03/30/19 Nitroglycerin Sl Tabs [Nitrostat] 0.4 mg SUBLINGUAL Q5M PRN #20 tab 03/30/19 Allergies Allergy/AdvReac Type Severity Reaction Status Date / Time No Known Allergies Allergy Verified 03/29/19 18:04 Review of Systems ROS Statement: Those systems with pertinent positive or pertinent negative responses have been documented in the HPI. ROS Other: All systems not noted in ROS Statement are negative. EKG Findings - EKG Comments: EKG Findings:: EKG shows A. fib rate of 91 QRS 70, QTc 442 Past Medical History Past Medical History: Diabetes Mellitus, GERD/Reflux, Hyperlipidemia, Hypertension, Myocardial Infarction ([place]) Last Myocardial Infarction Date:: 02/26/2019 History of Any Multi-Drug Resistant Organisms: None Reported Past Surgical History: Orthopedic Surgery Past Anesthesia/Blood Transfusion Reactions: No Reported Reaction Past Psychological History: No Psychological Hx Reported, Depression Smoking Status: Current every day smoker Past Alcohol Use History: None Reported Past Drug Use History: None Reported - Past Family History Father Family Medical History: AFIB, Coronary Artery Disease (CAD) Additional Family Medical History / Comment(s): pacemaker, blood thinners General Exam General appearance: alert, in no apparent distress, anxious Head exam: Present: atraumatic, normocephalic, normal inspection Eye exam: Present: normal appearance, PERRL, EOMI. Absent: scleral icterus, conjunctival injection, periorbital swelling ENT exam: Present: normal exam, mucous membranes moist Neck exam: Present: normal inspection. Absent: tenderness, meningismus, lymphadenopathy Respiratory exam: Present: normal lung sounds bilaterally. Absent: respiratory distress, wheezes, rales, rhonchi, stridor Cardiovascular Exam: Present: regular rate, normal rhythm, normal heart sounds. Absent: systolic murmur, diastolic murmur, rubs, gallop, clicks GI/Abdominal exam: Present: soft, normal bowel sounds. Absent: distended, tenderness, guarding, rebound, rigid Extremities exam: Present: normal inspection, full ROM, normal capillary refill. Absent: tenderness, pedal edema, joint swelling, calf tenderness Back exam: Present: normal inspection Neurological exam: Present: alert, oriented X3, CN II-XII intact Psychiatric exam: Present: normal affect, normal mood Skin exam: Present: warm, dry, intact, normal color. Absent: rash Course Vital Signs 04/02/19 17:52 Temperature 98 F Pulse Rate 84 Respiratory 18 Rate Blood Pressure 142/119 O2 Sat by Pulse 99 Oximetry - Reevaluation(s) Reevaluation #1: 04/02/19 19:15 medical record is reviewed Reevaluation #2: 04/02/19 19:15 patient's chest pain is currently improved feeling better with pain medication - Consultations Consultation #1: spoke with [facility], agreeable for admission Chest Pain MDM - MDM 53-year-old with an STEMI recent stent placement will admit, currently we will continue patient's home anticoagulation number for cardiology evaluation Critical Care Time Critical Care Time: Yes Total Critical Care Time: 31 Disposition Clinical Impression: Chest pain, Acute non-ST elevation myocardial infarction (NSTEMI) Disposition: ADMITTED IP TO THIS HOSP Condition: Serious Is patient prescribed a controlled substance at d/c from ED?: No
[2019-04-02] MEDS ORDERED: ONDANSETRON 4 MG/2 ML VIAL IVP STA (18:06)
[2019-04-02 18:11] LABS: RBC 5.34 m/uL (4.30-5.90)
[2019-04-02 18:12] LABS: Basophils # (A) 0.1 k/uL (0-0.2); Basophils % (A) 0 %; Eosinophils # (A) 0.2 k/uL (0-0.7); Eosinophils % (A) 2 %; HCT 46.3 % (39.0-53.0); HGB 15.5 gm/dL (13.0-17.5); Lymphocytes # (A) 2.9 k/uL (1.0-4.8); Lymphocytes % (A) 26 %; MCH 29.1 pg (25.0-35.0); MCHC 33.5 g/dL (31.0-37.0); MCV 86.8 fL (80.0-100.0); Mean Platelet Volume 6.8; Monocytes # (A) 0.7 k/uL (0-1.0); Monocytes % (A) 6 %; Neutrophils # (A) 6.9 k/uL (1.3-7.7); Neutrophils % (A) 63 %; Platelet Count 499 k/uL (150-450); RDW 13.8 % (11.5-15.5)
[2019-04-02 18:22] LABS: ALT 27 U/L (4-49); AST 31 U/L (17-59); African American GFR (CKD) >90 (>60 ml/min/1.73 sqM); Albumin 4.6 g/dL (3.5-5.0); Alkaline Phosphatase 115 U/L (38-126); Anion Gap 14 mmol/L; Blood Urea Nitrogen 30 mg/dL (9-20); Calcium 9.9 mg/dL (8.4-10.2); Carbon Dioxide 19 mmol/L (22-30); Chloride 103 mmol/L (98-107); Creatine Kinase 55 U/L (55-170); Glucose 132 mg/dL (74-99); Magnesium 1.9 mg/dL (1.6-2.3); Non-African American GFR(CKD) 84 (>60 ml/min/1.73 sqM); Potassium 4.6 mmol/L (3.5-5.1); Sodium 136 mmol/L (137-145); Total Bilirubin 0.7 mg/dL (0.2-1.3); Total Protein 7.5 g/dL (6.3-8.2)
[2019-04-02 18:23] LABS: Partial Thromboplastin Time 22.6 sec (22.0-30.0); Prothrombin Time 10.5 sec (9.0-12.0)
--- NOTE | 2019-04-02 18:40 | XR ---
EXAMINATION TYPE: XR chest 2V DATE OF EXAM: 04/02/2019 COMPARISON: 03/26/2019 HISTORY: Chest pain TECHNIQUE: 2 views FINDINGS: Heart is normal. Lungs are clear of infiltrate. There is no pleural effusion. There are ying st leads. Bony thorax is intact. IMPRESSION: Normal chest. No change.
[2019-04-02] MEDS ORDERED: ONDANSETRON 4 MG/2 ML VIAL IVP PRN (18:55)
[2019-04-02] MEDS ORDERED: LORazepam 2 MG/ML INJ IV PRN (18:55)
[2019-04-02] MEDS ORDERED: LORazepam 2 MG/ML INJ IV STA (18:55)
[2019-04-02] MEDS ORDERED: HEPARIN SODIUM,PORCINE 5,000 UNIT/ML 1 ML VIAL IV PRN (18:56)
[2019-04-02] MEDS ORDERED: HEPARIN SODIUM,PORCINE 5,000 UNIT/ML 1 ML VIAL IV ONE (18:56)
[2019-04-02] MEDS ORDERED: ASPIRIN 81 MG PO STA (18:57)
[2019-04-02] MEDS ORDERED: NITROGLYCERIN SL TABS 0.4 MG TAB SUBLINGUAL PRN (18:57)
[2019-04-02] MEDS ORDERED: HEPARIN SOD,PORK IN 0.45% NACL 25,000 UNIT in 0.45% NACL 1 250ML.BAG IV SCH (19:00)
[2019-04-02] MEDS ORDERED: DILTIAZEM DRIP BOLUS FROM BAG 1 MG SOLN IV ONE (19:20)
[2019-04-02] MEDS ORDERED: DILTIAZEM 125 MG in SODIUM CHLORIDE 0.9% 100 ML IV SCH (19:30)
[2019-04-02] MEDS ORDERED: HYDROmorphone 0.5 MG/0.5 ML SYRINGE IVP STA (19:54)
[2019-04-02 20:15] LABS: Appearance,Urine Clear (Clear); Bilirubin,Urine Negative (Negative); Blood,Urine Negative (Negative); Color,Urine Yellow; Glucose,Urine (UA) Negative (Negative); Ketones,Urine Trace (Negative); Leukocyte Esterase,Urine Negative (Negative); Nitrite,Urine Negative (Negative); PH, Urine 6.5 (5.0-8.0); Protein,Urine Trace (Negative); Specific Gravity,Urine 1.021 (1.001-1.035); Urobilinogen,Urine <2.0 mg/dL (<2.0)
[2019-04-02] MEDS: MORPHINE SULFATE 4 MG/ML SYRINGE IV PRN (21:21)
[2019-04-02] MEDS: METOPROLOL TARTRATE 25 MG TAB PO SCH (21:21)
[2019-04-02] MEDS: DULoxetine HCL 60 MG CAPSULE.DR PO SCH (23:22)
[2019-04-02] MEDS: FUROSEMIDE 20 MG TAB PO SCH (23:22)
[2019-04-02] MEDS: APIXABAN 2.5 MG TABLET PO SCH (23:22)
[2019-04-03 00:22] VITALS: RESP 18
[2019-04-03] MEDS: MORPHINE SULFATE 4 MG/ML SYRINGE IV PRN ×2 (02:48→09:05)
[2019-04-03 06:19] LABS: Basophils % (A) 1 %; Eosinophils % (A) 1 %; HCT 39.7 % (39.0-53.0); HGB 13.1 gm/dL (13.0-17.5); Lymphocytes # (A) 1.8 k/uL (1.0-4.8); Lymphocytes % (A) 30 %; MCH 29.3 pg (25.0-35.0); MCHC 32.8 g/dL (31.0-37.0); MCV 89.4 fL (80.0-100.0); Mean Platelet Volume 7.1; Monocytes # (A) 0.5 k/uL (0-1.0); Monocytes % (A) 8 %; Neutrophils # (A) 3.5 k/uL (1.3-7.7); Neutrophils % (A) 58 %; Platelet Count 346 k/uL (150-450); RBC 4.45 m/uL (4.30-5.90); RDW 14.1 % (11.5-15.5)
[2019-04-03 06:51] LABS: Cholesterol 163 mg/dL (<200); HDL Cholesterol 38 mg/dL (40-60); LDL Cholesterol,Calculated 85 mg/dL (0-99); Triglycerides 198 mg/dL (<150)
[2019-04-03] MEDS ORDERED: ASPIRIN 325 MG TAB PO SCH (09:00)
[2019-04-03] MEDS ORDERED: ATORVASTATIN 80 MG TAB PO SCH (09:00)
[2019-04-03] MEDS: METOPROLOL TARTRATE 25 MG TAB PO SCH (09:07)
[2019-04-03] MEDS: DULoxetine HCL 60 MG CAPSULE.DR PO SCH (09:07)
[2019-04-03] MEDS: FUROSEMIDE 20 MG TAB PO SCH (09:08)
[2019-04-03] MEDS: APIXABAN 2.5 MG TABLET PO SCH (09:08)
[2019-04-03 10:08] VITALS: TEMP 97.9
[2019-04-03] MEDS ORDERED: NICOTINE 14MG/24HR PATCH TRANSDERM SCH (10:15)
[2019-04-03] MEDS ORDERED: FAMOTIDINE 20 MG TAB PO PRN (10:24)
[2019-04-03] MEDS ORDERED: METOPROLOL TARTRATE 25 MG TAB PO STA (10:26)
[2019-04-03] MEDS ORDERED: DILTIAZEM ORAL 60 MG TAB PO SCH (10:30)
[2019-04-03] MEDS ORDERED: HYDROcodone/APAP 5-325MG 1 EACH TAB PO PRN (10:42)
--- NOTE | 2019-04-03 12:26 | P.HPIM ---
History of Present Illness Patient is admitted now for minimally low troponin but patient came in because he ran out of his [place] patient is comparing of back pain patient has chronic low back pain. Patient has bone spurs. Patient was having symptoms of bernadette roenteritis includes and loose stools nausea vomiting body aches and fever chills subject to patient never checked his temperature. Patient was subsequently admitted. Patient is on anti-correlation with Eliquis for his atrial fibrillation patient is found to be in A. fib patient was started on IV Cardizem patient is presently sinus rhythm and rate controlled IV Cardizem will be this can you patient was started on oral Cardizem in the metoprolol. Was evaluated by cardiology and do not believe he had myocardial infarction. Please refer to the documentation regarding EKG patient would only had minimal elevated troponins of 0.1 which can happen with sepsis from a viral gastroenteritis and atrial fibrillation. Patient denied any symptoms of chest pain. We will watch him until later in the day and the if his heart rate remains controlled upon ablation patient will be discharged today with a prescription of Carrie follow-up with his PCP as an outpatient Review of Systems REVIEW OF SYSTEMS: CONSTITUTIONAL: No fever, no malaise, no fatigue. HEENT: No recent visual problems or hearing problems. Denied any sore throat. CARDIOVASCULAR: No chest pain, orthopnea, PND, no palpitations, no syncope. PULMONARY: No shortness of breath, no cough, no hemoptysis. GASTROINTESTINAL: As mentioned in HPI NEUROLOGICAL: No headaches, no weakness, no numbness. HEMATOLOGICAL: Denies any bleeding or petechiae. GENITOURINARY: Denies any burning micturition, frequency, or urgency. MUSCULOSKELETAL/RHEUMATOLOGICAL: Denies any joint pain, swelling, or any muscle pain. Back pain as mentioned above ENDOCRINE: Denies any polyuria or polydipsia. The rest of the 14-point review of systems is negative. Past Medical History Past Medical History: Diabetes Mellitus, GERD/Reflux, Hyperlipidemia, Hypertension, Myocardial Infarction ([place]) Last Myocardial Infarction Date:: 02/26/2019 History of Any Multi-Drug Resistant Organisms: None Reported Past Surgical History: Orthopedic Surgery Past Anesthesia/Blood Transfusion Reactions: No Reported Reaction Past Psychological History: No Psychological Hx Reported, Depression Smoking Status: Current every day smoker Past Alcohol Use History: None Reported Past Drug Use History: None Reported - Past Family History Father Family Medical History: AFIB, Coronary Artery Disease (CAD) Additional Family Medical History / Comment(s): pacemaker, blood thinners Medications and Allergies Home Medications Medication Instructions Recorded Confirmed Type Furosemide [Lasix] 20 mg PO BID 08/26/16 04/02/19 History DULoxetine HCL [Cymbalta] 60 mg PO BID 03/29/19 04/02/19 History Apixaban [Eliquis] 2.5 mg PO BID #90 tablet 03/30/19 04/02/19 Rx Aspirin 81 mg PO DAILY chew 03/30/19 04/02/19 Rx Clopidogrel [Plavix] 75 mg PO DAILY #180 tab 03/30/19 04/02/19 Rx Diltiazem Oral [Cardizem*] 60 mg PO TID #270 tab 03/30/19 04/02/19 Rx Famotidine [Pepcid] 20 mg PO DAILY PRN #30 tab 03/30/19 04/02/19 Rx Metoprolol Tartrate [Lopressor] 100 mg PO BID #180 tab 03/30/19 04/02/19 Rx Nitroglycerin Sl Tabs [Nitrostat] 0.4 mg SUBLINGUAL Q5M PRN #20 tab 03/30/19 04/02/19 Rx Atorvastatin [Lipitor] 20 mg PO HS 04/02/19 04/02/19 History Diclofenac Potassium [Cataflam] 50 mg PO TID PRN 04/02/19 04/02/19 History tiZANidine HCL 4 mg PO TID PRN 04/02/19 04/02/19 History Allergies Allergy/AdvReac Type Severity Reaction Status Date / Time No Known Allergies Allergy Verified 04/02/19 19:47 Physical Exam Vitals: Vital Signs Temp Pulse Pulse Pulse Resp BP BP 04/03/19 08:50 97.9 F 85 85 18 110/87 04/03/19 04:00 91 18 103/73 04/03/19 00:18 83 18 114/74 04/02/19 20:00 117 H 20 04/02/19 19:51 130 H 20 155/88 04/02/19 19:19 98.0 F 117 H 19 114/70 04/02/19 17:52 98 F 84 18 142/119 Pulse Ox 04/03/19 08:50 98 04/03/19 04:00 95 04/03/19 00:18 93 L 04/02/19 20:00 04/02/19 19:51 100 04/02/19 19:19 97 04/02/19 17:52 99 Intake and Output 04/02/19 04/03/19 04/03/19 22:59 06:59 14:59 Intake Total 400 Balance 400 Intake: Intake, IV Titration 400 Amount Sodium Chloride 0.9% 1, 400 000 ml @ 100 mls/hr IV . Q10H STA Rx#:[id number] Other: Weight 68.039 kg 69.7 kg PHYSICAL EXAMINATION: GENERAL: The patient is alert and oriented x3, not in any acute distress. Well developed, well nourished. HEENT: Pupils are round and equally reacting to light. EOMI. No scleral icterus. No conjunctival pallor. Normocephalic, atraumatic. No pharyngeal erythema. No thyromegaly. CARDIOVASCULAR: S1 and S2 present. No murmurs, rubs, or gallops. PULMONARY: Chest is clear to auscultation, no wheezing or crackles. ABDOMEN: Soft, nontender, nondistended, normoactive bowel sounds. No palpable organomegaly. MUSCULOSKELETAL: No joint swelling or deformity. EXTREMITIES: No cyanosis, clubbing, or pedal edema. NEUROLOGICAL: Gross neurological examination did not reveal any focal deficits. SKIN: No rashes. Results CBC & Chem 7: 04/03/19 05:25 04/02/19 18:00 Labs: Abnormal Lab Results - Last 24 Hours (Table) 04/02/19 04/02/19 04/02/19 Range/Units 18:00 18:00 18:00 WBC 11.0 H (3.8-10.6) k/uL Plt Count 499 H (150-450) k/uL Sodium 136 L (137-145) mmol/L Carbon Dioxide 19 L (22-30) mmol/L BUN 30 H (9-20) mg/dL Glucose 132 H (74-99) mg/dL Troponin I 0.112 H* (0.000-0.034) ng/mL Triglycerides (<150) mg/dL HDL Cholesterol (40-60) mg/dL Urine Protein (Negative) Urine Ketones (Negative) 04/02/19 04/02/19 04/03/19 Range/Units 20:00 23:43 05:25 WBC (3.8-10.6) k/uL Plt Count (150-450) k/uL Sodium (137-145) mmol/L Carbon Dioxide (22-30) mmol/L BUN (9-20) mg/dL Glucose (74-99) mg/dL Troponin I 0.135 H* 0.104 H* (0.000-0.034) ng/mL Triglycerides (<150) mg/dL HDL Cholesterol (40-60) mg/dL Urine Protein Trace H (Negative) Urine Ketones Trace H (Negative) 04/03/19 Range/Units 05:25 WBC (3.8-10.6) k/uL Plt Count (150-450) k/uL Sodium (137-145) mmol/L Carbon Dioxide (22-30) mmol/L BUN (9-20) mg/dL Glucose (74-99) mg/dL Troponin I (0.000-0.034) ng/mL Triglycerides 198 H (<150) mg/dL HDL Cholesterol 38 L (40-60) mg/dL Urine Protein (Negative) Urine Ketones (Negative) Thrombosis Risk Factor Assmnt - Choose All That Apply Each Factor Represents 1 point: Age 41-60 years Thrombosis Risk Factor Assessment Total Risk Factor Score: 1 Thrombosis Risk Factor Assessment Level: Low Risk Assessment and Plan Plan: nausea vomiting diarrhea: Symptoms are improving at this time and patient probably has viral gastroenteritis including body aches. Patient will be discharged today and patient will be asked to drink fluids at home. -Chronic low back pain patient will be given prescription for Carrie which he was using and he ran out. -minimal elevated troponin secondary to atrial fibrillation and viral gastroen teritis -Atrial fibrillation: Presently rate controlled further management as mentioned above patient will continue his Eliquis although patient need to be in 5 mg twice a day of Eliquis but I'll leave this discussion to his primary care physician Hypertension depression -Nicotine abuse: Counseling was provided -Hypertension. -
--- NOTE | 2019-04-03 12:45 | P.CRDCN ---
History of Present Illness Consult date: 04/03/19 History of present illness: This is a 53-year-old gentleman with history of ischemic heart disease who underwent stent placement of the RCA on of this month. Previous to that, patient was admitted to [facility] with chest pain and sepsis with positive troponins. A cardiac catheterization showed intermediate to severe disease in the RCA. Patient was experiencing nonsustained ventricular tachycardia and bradycardia and was advised stent placement of the RCA which was performed on . Patient now comes to the hospital with complaints of mainly with abdominal discomfort, diarrhea, chills, neck pain and body aches. It appears that patient is having flulike symptoms. His EKG showed evidence of atrial fibrillation with rapid ventricular response and his cardiac enzymes are borderline elevated but the pattern is not consistent with acute coronary syndrome. Could be related to recent stent placement. At this point, he is symptoms are noncardiac in nature. If patient is medically stable and if his heart rate is well controlled, Patient could be discharged home to have follow- up with Dr. Calhoun. His current medications include Cardizem, eliquis , aspirin and Plavix along with metoprolol. His blood pressure is about 110/87 Review of Systems As per the old chart Past Medical History Past Medical History: Diabetes Mellitus, GERD/Reflux, Hyperlipidemia, Hyperte nsion, Myocardial Infarction ([place]) Last Myocardial Infarction Date:: 02/26/2019 History of Any Multi-Drug Resistant Organisms: None Reported Past Surgical History: Orthopedic Surgery Past Anesthesia/Blood Transfusion Reactions: No Reported Reaction Past Psychological History: No Psychological Hx Reported, Depression Smoking Status: Current every day smoker Past Alcohol Use History: None Reported Past Drug Use History: None Reported - Past Family History Father Family Medical History: AFIB, Coronary Artery Disease (CAD) Additional Family Medical History / Comment(s): pacemaker, blood thinners Medications and Allergies Home Medications Medication Instructions Recorded Confirmed Type Furosemide [Lasix] 20 mg PO BID 08/26/16 04/02/19 History DULoxetine HCL [Cymbalta] 60 mg PO BID 03/29/19 04/02/19 History Apixaban [Eliquis] 2.5 mg PO BID #90 tablet 03/30/19 04/02/19 Rx Aspirin 81 mg PO DAILY chew 03/30/19 04/02/19 Rx Clopidogrel [Plavix] 75 mg PO DAILY #180 tab 03/30/19 04/02/19 Rx Diltiazem Oral [Cardizem*] 60 mg PO TID #270 tab 03/30/19 04/02/19 Rx Famotidine [Pepcid] 20 mg PO DAILY PRN #30 tab 03/30/19 04/02/19 Rx Metoprolol Tartrate [Lopressor] 100 mg PO BID #180 tab 03/30/19 04/02/19 Rx Nitroglycerin Sl Tabs [Nitrostat] 0.4 mg SUBLINGUAL Q5M PRN #20 tab 03/30/19 04/02/19 Rx Atorvastatin [Lipitor] 20 mg PO HS 04/02/19 04/02/19 History Diclofenac Potassium [Cataflam] 50 mg PO TID PRN 04/02/19 04/02/19 History tiZANidine HCL 4 mg PO TID PRN 04/02/19 04/02/19 History HYDROcodone/APAP 5-325MG [[place] 1 tab PO Q4HR PRN 3 Days #18 tab 04/03/19 Rx 5-325] Allergies Allergy/AdvReac Type Severity Reaction Status Date / Time No Known Allergies Allergy Verified 04/02/19 19:47 Physical Exam Vitals: Vital Signs Temp Pulse Pulse Pulse Resp BP BP 04/03/19 08:50 97.9 F 85 85 18 110/87 04/03/19 04:00 91 18 103/73 04/03/19 00:18 83 18 114/74 04/02/19 20:00 117 H 20 04/02/19 19:51 130 H 20 155/88 04/02/19 19:19 98.0 F 117 H 19 114/70 04/02/19 17:52 98 F 84 18 142/119 Pulse Ox 04/03/19 08:50 98 04/03/19 04:00 95 04/03/19 00:18 93 L 04/02/19 20:00 04/02/19 19:51 100 04/02/19 19:19 97 04/02/19 17:52 99 Intake and Output 04/02/19 04/03/19 04/03/19 22:59 06:59 14:59 Intake Total 400 Balance 400 Intake: Intake, IV Titration 400 Amount Sodium Chloride 0.9% 1, 400 000 ml @ 100 mls/hr IV . Q10H STA Rx#:[id number] Other: Weight 68.039 kg 69.7 kg GENERAL EXAM: Patient is alert and oriented and doesn't appear to be in any acute distress HEENT: Normocephalic. Normal reaction of pupils, equal size, normal range of extraocular motion. No erythema or exudates in the throat. NECK: No masses, no nuchal rigidity. CHEST: No chest wall deformity. LUNGS: Bilateral expiratory wheezes and rhonchi HEART: S1 and S2 normal with no audible mumurs or gallops. Regular rhythm, femorals equal on both sides.. ABDOMEN: No hepatosplenomegaly, normal bowel sounds, no guarding or rigidity. SKIN: No rashes CENTRAL NERVOUS SYSTEM: No focal deficits. EXTREMITIES: No cyanosis, clubbing or edema. Results 04/03/19 05:25 04/02/19 18:00 Cardiac Enzymes 04/02/19 04/02/19 04/02/19 Range/Units 18:00 18:00 23:43 AST 31 (17-59) U/L Troponin I 0.112 H* 0.135 H* (0.000-0.034) ng/mL 04/03/19 Range/Units 05:25 AST (17-59) U/L Troponin I 0.104 H* (0.000-0.034) ng/mL Coagulation 04/02/19 04/03/19 Range/Units 18:00 05:25 PT 10.5 11.0 (9.0-12.0) sec APTT 22.6 (22.0-30.0) sec Lipids 04/03/19 Range/Units 05:25 Triglycerides 198 H (<150) mg/dL Cholesterol 163 (<200) mg/dL HDL Cholesterol 38 L (40-60) mg/dL CBC 04/02/19 04/03/19 Range/Units 18:00 05:25 WBC 11.0 H 6.0 (3.8-10.6) k/uL RBC 5.34 4.45 (4.30-5.90) m/uL Hgb 15.5 13.1 (13.0-17.5) gm/dL Hct 46.3 39.7 (39.0-53.0) % Plt Count 499 H 346 (150-450) k/uL Comprehensive Metabolic Panel 04/02/19 Range/Units 18:00 Sodium 136 L (137-145) mmol/L Potassium 4.6 (3.5-5.1) mmol/L Chloride 103 (98-107) mmol/L Carbon Dioxide 19 L (22-30) mmol/L BUN 30 H (9-20) mg/dL Creatinine 1.00 (0.66-1.25) mg/dL Glucose 132 H (74-99) mg/dL Calcium 9.9 (8.4-10.2) mg/dL AST 31 (17-59) U/L ALT 27 (4-49) U/L Alkaline Phosphatase 115 (38-126) U/L Total Protein 7.5 (6.3-8.2) g/dL Albumin 4.6 (3.5-5.0) g/dL Current Medications Generic Name Dose Route Start Last Admin Trade Name Freq PRN Reason Stop Dose Admin Hydrocodone Bitart/Acetaminophen 1 each 04/03/19 10:42 04/03/19 11:24 [place] 5-325 PO 1 each Q4HR PRN Administration Pain Apixaban 2.5 mg 04/02/19 23:00 04/03/19 09:08 Eliquis PO 2.5 mg BID HEIDI Administration Aspirin 325 mg 04/03/19 09:00 04/03/19 09:07 Aspirin PO 325 mg DAILY HEIDI Administration Atorvastatin Calcium 80 mg 04/03/19 09:00 04/03/19 09:07 Lipitor PO 80 mg DAILY HEIDI Administration Clopidogrel Bisulfate 75 mg 04/04/19 09:00 Plavix PO DAILY HEIDI Diltiazem HCl 60 mg 04/03/19 10:30 04/03/19 11:24 Cardizem Oral PO 60 mg TID HEIDI Administration Duloxetine HCl 60 mg 04/02/19 23:00 04/03/19 09:07 Cymbalta PO 60 mg BID HEIDI Administration Famotidine 20 mg 04/03/19 21:00 Pepcid PO BID HEIDI Furosemide 20 mg 04/02/19 23:00 04/03/19 09:08 Lasix PO 20 mg BID HEIDI Administration Lorazepam 1 mg 04/02/19 18:55 Ativan IV Q4HR PRN Anxiety Metoprolol Tartrate 100 mg 04/03/19 21:00 Lopressor PO BID [facility] Morphine Sulfate 4 mg 04/02/19 18:57 04/03/19 09:05 Morphine Sulfate (Inj) IV 4 mg Q4HR PRN Administration Chest Pain Nicotine 1 patch 04/03/19 10:15 04/03/19 11:26 Habitrol 14mg/24hr Patch TRANSDERM 1 patch DAILY HEIDI Administration Nitroglycerin 0.4 mg 04/02/19 18:57 Nitrostat SUBLINGUAL Q5M PRN Chest Pain Ondansetron HCl 4 mg 04/02/19 18:55 Zofran IVP Q6HR PRN Nausea And Vomiting Intake and Output 04/02/19 04/03/19 04/03/19 22:59 06:59 14:59 Intake Total 400 Balance 400 Intake: Intake, IV Titration 400 Amount Sodium Chloride 0.9% 1, 400 000 ml @ 100 mls/hr IV . Q10H STA Rx#:[id number] Other: Weight 68.039 kg 69.7 kg 04/03/19 05:25 04/02/19 18:00 EKG Interpretations (text) Atrial fibrillation with moderate to rapid ventricular response Assessment and Plan (1) Ischemic heart disease Current Visit: Yes Status: Acute Code(s): I25.9 - CHRONIC ISCHEMIC HEART DISEASE, UNSPECIFIED SNOMED Code(s): 956935134 (2) Atrial fibrillation Current Visit: No Status: Acute Code(s): I48.91 - UNSPECIFIED ATRIAL FIBRILLATION SNOMED Code(s): 35811599 (3) Headache Current Visit: No Status: Acute Code(s): R51 - HEADACHE SNOMED Code(s): 79747421 (4) Flu Current Visit: Yes Status: Acute Code(s): J11.1 - FLU DUE TO UNIDENTIFIED INFLUENZA VIRUS W OTH RESP MANIFEST SNOMED Code(s): 8322575 (5) Elevated troponin Current Visit: Yes Status: Acute Code(s): R79.89 - OTHER SPECIFIED ABNORMAL FINDINGS OF BLOOD CHEMISTRY SNOMED Code(s): 620544459 Plan: Patient's symptoms are mostly abdominal pain, diarrhea, body aches and neck pain. Appears to be like flulike symptoms. Actually is not having any chest pains. Abnormal troponin values are not consistent with acute coronary syndrome. Could be related to recent intervention. When medically clear, patient will be discharged home. Follow-up with Dr. Calhoun as an outpatient
[2019-04-03 14:32] VITALS: BP 130/93; PULSE 87
[2019-04-03] MEDS ORDERED: METOPROLOL TARTRATE 50 MG TAB PO SCH (21:00)
[2019-04-03] MEDS ORDERED: FAMOTIDINE 20 MG TAB PO SCH (21:00)
[2019-04-03] MEDS ORDERED: ATORVASTATIN 20 MG TAB PO SCH (21:00)
[2019-04-04] MEDS ORDERED: CLOPIDOGREL 75 MG TAB PO SCH (09:00)
--- NOTE | 2019-04-04 11:40 | ECHOF ---
Referral Reason:elevTrop MEASUREMENTS -------- HEIGHT: 165.1 cm WEIGHT: 68.0 kg BP: 110/87 RVIDd: 3.4 cm (< 3.3) IVSd: 1.2 cm (0.6 - 1.1) LVIDd: 4.7 cm (3.9 - 5.3) LVPWd: 1.5 cm (0.6 - 1.1) IVSs: 1.7 cm LVIDs: 2.6 cm LVPWs: 1.6 cm LA Diam: 4.2 cm (2.7 - 3.8) LAESV Index (A-L): 43.15 ml/m Ao Diam: 4.0 cm (2.0 - 3.7) AV Cusp: 2.4 cm (1.5 - 2.6) MV EXCURSION: 22.560 mm (> 18.000) MV EF SLOPE: 120 mm/s (70 - 150) EPSS: 0.6 cm FINDINGS -------- Atrial fibrillation. This was a technically adequate study. The left ventricular size is normal. There is borderline concentric left ventricular hypertrophy. Overall left ventricular systolic function is normal with, an EF between 55 - 60 %. The right ventricle is mildly enlarged. LA is severely dilated >40 ml/m2 The right atrial size is normal. Interatrial and interventricular septum intact. The aortic valve is trileaflet and appears structurally normal. Trace to mild aortic regurgitation. The mitral valve is normal. There is trace mitral regurgitation. The tricuspid valve appears structurally normal. No regurgitation noted Trace/mild (physiologic) pulmonic regurgitation. The aortic root is dilated measuring 4.0cm. Normal inferior vena cava with normal inspiratory collapse consistent with estimated right atrial pre ssure of 5 mmHg. There is no pericardial effusion. CONCLUSIONS -------- 1. Atrial fibrillation. 2. This was a technically adequate study. 3. The left ventricular size is normal. 4. There is borderline concentric left ventricular hypertrophy. 5. Overall left ventricular systolic function is normal with, an EF between 55 - 60 %. 6. The right ventricle is mildly enlarged. 7. LA is severely dilated >40 ml/m2 8. The aortic valve is trileaflet and appears structurally normal. 9. Trace to mild aortic regurgitation. 10. There is trace mitral regurgitation. 11. The tricuspid valve appears structurally normal. 12. Trace/mild (physiologic) pulmonic regurgitation. 13. The aortic root is dilated measuring 4.0cm. 14. Normal inferior vena cava with normal inspiratory collapse consistent with estimated right atrial pressure of 5 mmHg. 15. There is no pericardial effusion. RN NURSERY: Sandrita Roberts RDCS
== END 2019-04-03 15:15 | disposition home or self-care (01) | DRG 310 ==
LOC: EC 17:50 → 3SCARD 18:59
PROVIDERS: ADMIT Hospitalist; ATTEND Hospitalist
DX: I48.91 Unspecified atrial fibrillation (principal); A08.4 Viral intestinal infection, unspecified; E11.9 Type 2 diabetes mellitus without complications; E78.5 Hyperlipidemia, unspecified; F17.200 Nicotine dependence, unspecified, uncomplicated; F32.9 Major depressive disorder, single episode, unspecified; G89.29 Other chronic pain; I10 Essential (primary) hypertension; I25.2 Old myocardial infarction; I25.9 Chronic ischemic heart disease, unspecified; Z79.01 Long term (current) use of anticoagulants; Z79.02 Long term (current) use of antithrombotics/antiplatelets; Z79.82 Long term (current) use of aspirin; Z79.899 Other long term (current) drug therapy; Z82.49 Family history of ischemic heart disease and other diseases of the circulatory system; Z71.6 Tobacco abuse counseling; M54.5 Low back pain
CPT/HCPCS: 36415; 71046; 80053; 80061; 81003; 82550; 83605; 83690; 83735; 83880; 84484; 85025; 85610; 85730; 93005; 93306; 96361; 96365; 96375; 96376; 99291

== ENCOUNTER 2019-04-04 08:51 | Emergency (ER) | payer MEDICARE, OTHER ==
[2019-04-04] MEDS ORDERED: SODIUM CHLORIDE 0.9% 1,000 ML IV STA (09:15)
--- NOTE | 2019-04-04 09:21 | ED ---
General Adult HPI - General Chief complaint: Nausea/Vomiting/Diarrhea Stated complaint: Vomiting Time Seen by Provider: 04/04/19 08:53 Source: patient, EMS, RN notes reviewed Mode of arrival: EMS Limitations: no limitations - History of Present Illness Initial comments: Patient is a pleasant 53-year-old male presenting to the emergency department following a single episode of emesis. Episode was around an hour ago. Patient states he took his medications around 1 hour prior to that and was somewhat concerned that he may have vomited up his medication. Patient did not notice pill fragments. Patient states since that single episode of vomiting nausea has resolved. Patient denies abdominal pain. No chest pain. Patient states he did have a stent placed less than a week ago. Patient states he does have a history of atrial fibrillation. - Related Data Home Medications Medication Instructions Recorded Confirmed Furosemide [Lasix] 20 mg PO BID 08/26/16 04/04/19 DULoxetine HCL [Cymbalta] 60 mg PO BID 03/29/19 04/04/19 Atorvastatin [Lipitor] 20 mg PO HS 04/02/19 04/04/19 Diclofenac Potassium [Cataflam] 50 mg PO TID PRN 04/02/19 04/04/19 tiZANidine HCL 4 mg PO TID PRN 04/02/19 04/04/19 Previous Rx's Medication Instructions Recorded Apixaban [Eliquis] 2.5 mg PO BID #90 tablet 03/30/19 Aspirin 81 mg PO DAILY chew 03/30/19 Clopidogrel [Plavix] 75 mg PO DAILY #180 tab 03/30/19 Diltiazem Oral [Cardizem*] 60 mg PO TID #270 tab 03/30/19 Famotidine [Pepcid] 20 mg PO DAILY PRN #30 tab 03/30/19 Metoprolol Tartrate [Lopressor] 100 mg PO BID #180 tab 03/30/19 Nitroglycerin Sl Tabs [Nitrostat] 0.4 mg SUBLINGUAL Q5M PRN #20 tab 03/30/19 HYDROcodone/APAP 5-325MG [[place] 1 tab PO Q4HR PRN 3 Days #18 tab 04/03/19 5-325] Allergies Allergy/AdvReac Type Severity Reaction Status Date / Time No Known Allergies Allergy Verified 04/02/19 19:47 Review of Systems ROS Statement: Those systems with pertinent positive or pertinent negative responses have been documented in the HPI. ROS Other: All systems not noted in ROS Statement are negative. Constitutional: Denies: fever Eyes: Denies: eye pain ENT: Denies: ear pain Respiratory: Denies: cough, dyspnea Cardiovascular: Denies: chest pain Endocrine: Denies: fatigue Gastrointestinal: Reports: as per HPI, vomiting. Denies: abdominal pain, diarrhea Genitourinary: Denies: dysuria Musculoskeletal: Denies: back pain Skin: Denies: rash Neurological: Denies: weakness Past Medical History Past Medical History: Diabetes Mellitus, GERD/Reflux, Hyperlipidemia, Hypertension, Myocardial Infarction ([place]) Last Myocardial Infarction Date:: 02/26/2019 History of Any Multi-Drug Resistant Organisms: None Reported Past Surgical History: Orthopedic Surgery Past Anesthesia/Blood Transfusion Reactions: No Reported Reaction Past Psychological History: No Psychological Hx Reported, Depression Smoking Status: Current every day smoker Past Alcohol Use History: None Reported Past Drug Use History: None Reported - Past Family History Father Family Medical History: AFIB, Coronary Artery Disease (CAD) Additional Family Medical History / Comment(s): pacemaker, blood thinners General Exam Limitations: no limitations General appearance: alert, in no apparent distress Head exam: Present: normocephalic Eye exam: Present: normal appearance, PERRL ENT exam: Present: normal oropharynx Neck exam: Present: normal inspection Respiratory exam: Present: normal lung sounds bilaterally Cardiovascular Exam: Present: regular rate, irregular rhythm GI/Abdominal exam: Present: soft. Absent: tenderness Extremities exam: Present: normal inspection. Absent: calf tenderness Neurological exam: Present: alert Psychiatric exam: Present: normal affect, normal mood Skin exam: Present: normal color Course Vital Signs 04/04/19 04/04/19 09:03 10:57 Temperature 98.0 F Pulse Rate 100 84 Respiratory 16 16 Rate Blood Pressure 122/95 115/93 O2 Sat by Pulse 99 99 Oximetry EKG Findings - EKG Comments: EKG Findings:: A. fib with rate of 101. QRS 74. QT 344. QTC 446. Normal axis. Normal QRS. Nonspecific T waves. Medical Decision Making - Medical Decision Making Patient reevaluated and resting comfortably in bed. Patient remained symptom- free. Patient updated on results. Patient requests discharge home and is agreeable to close follow-up with Dr. Fair. Case was discussed in detail with Dr. Hensley who agrees with plan. Troponin has improved. - Lab Data Result diagrams: 04/04/19 09:50 04/04/19 09:50 Lab Results 04/04/19 04/04/19 04/04/19 Range/Units 08:59 09:50 09:50 WBC 10.2 (3.8-10.6) k/uL RBC 5.08 (4.30-5.90) m/uL Hgb 14.7 (13.0-17.5) gm/dL Hct 45.0 (39.0-53.0) % MCV 88.7 (80.0-100.0) fL MCH 28.9 (25.0-35.0) pg MCHC 32.6 (31.0-37.0) g/dL RDW 14.0 (11.5-15.5) % Plt Count 417 (150-450) k/uL Neutrophils % 81 % Lymphocytes % 11 % Monocytes % 5 % Eosinophils % 1 % Basophils % 0 % Neutrophils # 8.3 H (1.3-7.7) k/uL Lymphocytes # 1.2 (1.0-4.8) k/uL Monocytes # 0.5 (0-1.0) k/uL Eosinophils # 0.1 (0-0.7) k/uL Basophils # 0.0 (0-0.2) k/uL PT (9.0-12.0) sec INR (<1.2) APTT (22.0-30.0) sec Sodium 138 (137-145) mmol/L Potassium 4.8 (3.5-5.1) mmol/L Chloride 107 (98-107) mmol/L Carbon Dioxide 20 L (22-30) mmol/L Anion Gap 11 mmol/L BUN 27 H (9-20) mg/dL Creatinine 0.78 (0.66-1.25) mg/dL Est GFR (CKD-EPI)AfAm >90 (>60 ml/min/1.73 sqM) Est GFR (CKD-EPI)NonAf >90 (>60 ml/min/1.73 sqM) Glucose 106 H (74-99) mg/dL Calcium 9.9 (8.4-10.2) mg/dL Total Bilirubin 0.5 (0.2-1.3) mg/dL AST 27 (17-59) U/L ALT 22 (4-49) U/L Alkaline Phosphatase 84 (38-126) U/L Troponin I (0.000-0.034) ng/mL Total Protein 7.0 (6.3-8.2) g/dL Albumin 4.4 (3.5-5.0) g/dL Amylase 57 (30-110) U/L Lipase 83 (23-300) U/L Urine Color Light Yellow Urine Appearance Clear (Clear) Urine pH 5.5 (5.0-8.0) Ur Specific [place] 1.007 (1.001-1.035) Urine Protein Negative (Negative) Urine Glucose (UA) Negative (Negative) Urine Ketones Negative (Negative) Urine Blood Negative (Negative) Urine Nitrite Negative (Negative) Urine Bilirubin Negative (Negative) Urine Urobilinogen <2.0 (<2.0) mg/dL Ur Leukocyte Esterase Negative (Negative) 04/04/19 04/04/19 Range/Units 09:50 09:50 WBC (3.8-10.6) k/uL RBC (4.30-5.90) m/uL Hgb (13.0-17.5) gm/dL Hct (39.0-53.0) % MCV (80.0-100.0) fL MCH (25.0-35.0) pg MCHC (31.0-37.0) g/dL RDW (11.5-15.5) % Plt Count (150-450) k/uL Neutrophils % % Lymphocytes % % Monocytes % % Eosinophils % % Basophils % % Neutrophils # (1.3-7.7) k/uL Lymphocytes # (1.0-4.8) k/uL Monocytes # (0-1.0) k/uL Eosinophils # (0-0.7) k/uL Basophils # (0-0.2) k/uL PT 10.1 (9.0-12.0) sec INR 0.9 (<1.2) APTT 24.6 (22.0-30.0) sec Sodium (137-145) mmol/L Potassium (3.5-5.1) mmol/L Chloride (98-107) mmol/L Carbon Dioxide (22-30) mmol/L Anion Gap mmol/L BUN (9-20) mg/dL Creatinine (0.66-1.25) mg/dL Est GFR (CKD-EPI)AfAm (>60 ml/min/1.73 sqM) Est GFR (CKD-EPI)NonAf (>60 ml/min/1.73 sqM) Glucose (74-99) mg/dL Calcium (8.4-10.2) mg/dL Total Bilirubin (0.2-1.3) mg/dL AST (17-59) U/L ALT (4-49) U/L Alkaline Phosphatase (38-126) U/L Troponin I 0.061 H* (0.000-0.034) ng/mL Total Protein (6.3-8.2) g/dL Albumin (3.5-5.0) g/dL Amylase (30-110) U/L Lipase (23-300) U/L Urine Color Urine Appearance (Clear) Urine pH (5.0-8.0) Ur Specific [place] (1.001-1.035) Urine Protein (Negative) Urine Glucose (UA) (Negative) Urine Ketones (Negative) Urine Blood (Negative) Urine Nitrite (Negative) Urine Bilirubin (Negative) Urine Urobilinogen (<2.0) mg/dL Ur Leukocyte Esterase (Negative) Disposition Clinical Impression: Vomiting Disposition: HOME SELF-CARE Condition: Stable Instructions (If sedation given, give patient instructions): Acute Nausea and Vomiting (ED) Additional Instructions: Please follow-up tomorrow with Dr. Fair. Return for chest pain, persistent vomiting, difficulty breathing, worsening symptoms or any other concerns. Is patient prescribed a controlled substance at d/c from ED?: No Referrals: Reinaldo Hensley MD [Primary Care Provider] - 1-2 days Time of Disposition: 11:54
[2019-04-04 10:10] LABS: INR 0.9 (<1.2); Partial Thromboplastin Time 24.6 sec (22.0-30.0); Prothrombin Time 10.1 sec (9.0-12.0)
[2019-04-04 10:17] LABS: Basophils % (A) 0 %; Eosinophils # (A) 0.1 k/uL (0-0.7); Eosinophils % (A) 1 %; HGB 14.7 gm/dL (13.0-17.5); Lymphocytes # (A) 1.2 k/uL (1.0-4.8); Lymphocytes % (A) 11 %; MCH 28.9 pg (25.0-35.0); MCHC 32.6 g/dL (31.0-37.0); MCV 88.7 fL (80.0-100.0); Mean Platelet Volume 6.7; Monocytes # (A) 0.5 k/uL (0-1.0); Monocytes % (A) 5 %; Neutrophils # (A) 8.3 k/uL (1.3-7.7); Neutrophils % (A) 81 %; Platelet Count 417 k/uL (150-450); RBC 5.08 m/uL (4.30-5.90); WBC 10.2 k/uL (3.8-10.6)
[2019-04-04 10:18] LABS: ALT 22 U/L (4-49); AST 27 U/L (17-59); African American GFR (CKD) >90 (>60 ml/min/1.73 sqM); Albumin 4.4 g/dL (3.5-5.0); Alkaline Phosphatase 84 U/L (38-126); Amylase 57 U/L (30-110); Anion Gap 11 mmol/L; Blood Urea Nitrogen 27 mg/dL (9-20); Calcium 9.9 mg/dL (8.4-10.2); Carbon Dioxide 20 mmol/L (22-30); Chloride 107 mmol/L (98-107); Glucose 106 mg/dL (74-99); Non-African American GFR(CKD) >90 (>60 ml/min/1.73 sqM); Potassium 4.8 mmol/L (3.5-5.1); Sodium 138 mmol/L (137-145); Total Bilirubin 0.5 mg/dL (0.2-1.3)
[2019-04-04 10:23] LABS: Appearance,Urine Clear (Clear); Bilirubin,Urine Negative (Negative); Blood,Urine Negative (Negative); Color,Urine Light Yellow; Glucose,Urine (UA) Negative (Negative); Ketones,Urine Negative (Negative); Leukocyte Esterase,Urine Negative (Negative); Nitrite,Urine Negative (Negative); PH, Urine 5.5 (5.0-8.0); Protein,Urine Negative (Negative); Specific Gravity,Urine 1.007 (1.001-1.035); Urobilinogen,Urine <2.0 mg/dL (<2.0)
[2019-04-04 13:24] VITALS: BP 118/96; PULSE 90; RESP 18; TEMP 98.1
== END 2019-04-04 13:23 | disposition home or self-care (01) ==
LOC: EC 08:51
DX: R11.2 Nausea with vomiting, unspecified (principal); R19.7 Diarrhea, unspecified; E78.5 Hyperlipidemia, unspecified; I10 Essential (primary) hypertension; I25.2 Old myocardial infarction; F32.9 Major depressive disorder, single episode, unspecified; F17.200 Nicotine dependence, unspecified, uncomplicated; Z79.899 Other long term (current) drug therapy
CPT/HCPCS: 36415; 80053; 81003; 82150; 83690; 84484; 85025; 85610; 85730; 93005; 96360; 96361; 99284

== ENCOUNTER 2019-04-04 14:27 | Inpatient (IN) | payer MEDICARE, OTHER ==
[2019-04-04] MEDS ORDERED: ONDANSETRON 4 MG/2 ML VIAL IVP STA (16:46)
[2019-04-04] MEDS ORDERED: SODIUM CHLORIDE 0.9% 1,000 ML IV STA (17:06)
--- NOTE | 2019-04-04 17:09 | ED ---
Abdominal Pain HPI - General Chief Complaint: Abdominal Pain Stated Complaint: Dizziness, light headed, Depressed Time Seen by Provider: 04/04/19 16:32 Source: patient Mode of arrival: wheelchair Limitations: no limitations - History of Present Illness Initial Comments: Patient is a 53 with recent stent placement presents emergency Department with a chief complaint of abdominal pain, nausea, vomiting and dizziness. He states that he was discharges morning but is symptoms return. Patient reports diffuse abdominal abdominal pain that is not related to by mouth intake. Patient also reports dizziness after episodes of vomiting. He does report nonbloody, nonbilious vomiting. Does report some lightheadedness. Reports continuous nausea to the point where he is only dry heaving. Denies hematuria, hematochezia or melena. Denies testicular pain or swelling. Denies night sweats or chills. - Related Data Home Medications Medication Instructions Recorded Confirmed Furosemide [Lasix] 20 mg PO BID 08/26/16 04/04/19 DULoxetine HCL [Cymbalta] 60 mg PO BID 03/29/19 04/04/19 Atorvastatin [Lipitor] 20 mg PO HS 04/02/19 04/04/19 Diclofenac Potassium [Cataflam] 50 mg PO TID PRN 04/02/19 04/04/19 tiZANidine HCL 4 mg PO TID PRN 04/02/19 04/04/19 Previous Rx's Medication Instructions Recorded Apixaban [Eliquis] 2.5 mg PO BID #90 tablet 03/30/19 Aspirin 81 mg PO DAILY chew 03/30/19 Clopidogrel [Plavix] 75 mg PO DAILY #180 tab 03/30/19 Diltiazem Oral [Cardizem*] 60 mg PO TID #270 tab 03/30/19 Famotidine [Pepcid] 20 mg PO DAILY PRN #30 tab 03/30/19 Metoprolol Tartrate [Lopressor] 100 mg PO BID #180 tab 03/30/19 Nitroglycerin Sl Tabs [Nitrostat] 0.4 mg SUBLINGUAL Q5M PRN #20 tab 03/30/19 HYDROcodone/APAP 5-325MG [[place] 1 tab PO Q4HR PRN 3 Days #18 tab 04/03/19 5-325] Dicyclomine [Bentyl] 20 mg PO TID #15 tablet 04/04/19 Ondansetron Odt [Zofran Odt] 4 mg PO Q8HR PRN #10 tab 04/04/19 Allergies Allergy/AdvReac Type Severity Reaction Status Date / Time No Known Allergies Allergy Verified 04/04/19 15:10 Review of Systems ROS Statement: Those systems with pertinent positive or pertinent negative responses have been documented in the HPI. ROS Other: All systems not noted in ROS Statement are negative. Past Medical History Past Medical History: Diabetes Mellitus, GERD/Reflux, Hyperlipidemia, Hy pertension, Myocardial Infarction ([place]) Last Myocardial Infarction Date:: 02/26/2019 History of Any Multi-Drug Resistant Organisms: None Reported Past Surgical History: Orthopedic Surgery Past Anesthesia/Blood Transfusion Reactions: No Reported Reaction Past Psychological History: No Psychological Hx Reported, Depression Smoking Status: Current every day smoker Past Alcohol Use History: None Reported Past Drug Use History: None Reported - Past Family History Father Family Medical History: AFIB, Coronary Artery Disease (CAD) Additional Family Medical History / Comment(s): pacemaker, blood thinners General Exam Limitations: no limitations General appearance: alert, in no apparent distress Head exam: Present: atraumatic, normocephalic, normal inspection Eye exam: Present: normal appearance Pupils: Present: normal accommodation ENT exam: Present: normal exam, normal oropharynx, mucous membranes moist, TM's normal bilaterally, normal external ear exam Neck exam: Present: normal inspection, full ROM Respiratory exam: Present: normal lung sounds bilaterally Cardiovascular Exam: Present: regular rate, normal rhythm, normal heart sounds GI/Abdominal exam: Present: soft, distended (Mild.), tenderness (Diffuse abdominal tenderness). Absent: guarding, rebound, rigid, pulsatile mass, hernia, other Extremities exam: Present: normal inspection, full ROM, normal capillary refill, other (+2 ulnar and radial pulses bilaterally.) Back exam: Present: normal inspection, full ROM Neurological exam: Present: alert, oriented X3 Psychiatric exam: Present: normal affect, normal mood Skin exam: Present: warm, dry, intact, normal color Course Vital Signs 04/04/19 04/04/19 04/04/19 15:07 18:10 18:41 Temperature 98.3 F 97.9 F Pulse Rate 88 102 H 129 H Respiratory 20 18 22 Rate Blood Pressure 151/96 138/87 167/107 O2 Sat by Pulse 94 L 100 99 Oximetry 04/04/19 04/04/19 19:37 19:49 Temperature 98.1 F Pulse Rate 118 H Respiratory 20 Rate Blood Pressure 162/110 168/104 O2 Sat by Pulse 99 Oximetry Medical Decision Making - Medical Decision Making patient is a 53-year-old male presenting to the emergency department with chief complaint of nausea vomiting abdominal pain and dizziness. Patient was discharged this morning after administering enema. Patient is returning with continuous nausea and abdominal pain. On exam patient has diffuse abdominal tenderness. Mild abdominal distention noted as well. Initial EKG showed A. fib. Patient does take a blood thinner and medication to control his A. fib. Initial workup showed troponin of 0.052. Which was decreased from earlier today. This is secondary to a recent cath. Patient also had elevated amylase and lipase within normal limits. No suspecting pancreatitis at this time. Patient has no previous history of pancreatitis. Repeat EKG was obtained showing A. fib with RVR. Patient started on Cardizem drip. Patient will be admitted. Admitting physician is Dr Herring. Cardiology consulted. Case discussed with Dr. Weems - Lab Data Result diagrams: 04/04/19 17:10 04/04/19 17:10 Lab Results 04/04/19 04/04/19 04/04/19 Range/Units 17:10 17:10 17:10 WBC 5.0 (3.8-10.6) k/uL RBC 5.55 (4.30-5.90) m/uL Hgb 16.5 (13.0-17.5) gm/dL Hct 48.4 (39.0-53.0) % MCV 87.3 (80.0-100.0) fL MCH 29.7 (25.0-35.0) pg MCHC 34.1 (31.0-37.0) g/dL RDW 13.8 (11.5-15.5) % Plt Count 416 (150-450) k/uL Neutrophils % 67 % Lymphocytes % 29 % Monocytes % 1 % Eosinophils % 2 % Basophils % 0 % Neutrophils # 3.3 (1.3-7.7) k/uL Lymphocytes # 1.5 (1.0-4.8) k/uL Monocytes # 0.1 (0-1.0) k/uL Eosinophils # 0.1 (0-0.7) k/uL Basophils # 0.0 (0-0.2) k/uL Sodium 138 (137-145) mmol/L Potassium 4.1 (3.5-5.1) mmol/L Chloride 104 (98-107) mmol/L Carbon Dioxide 21 L (22-30) mmol/L Anion Gap 13 mmol/L BUN 22 H (9-20) mg/dL Creatinine 0.90 (0.66-1.25) mg/dL Est GFR (CKD-EPI)AfAm >90 (>60 ml/min/1.73 sqM) Est GFR (CKD-EPI)NonAf >90 (>60 ml/min/1.73 sqM) Glucose 129 H (74-99) mg/dL Calcium 10.9 H (8.4-10.2) mg/dL Total Bilirubin 0.7 (0.2-1.3) mg/dL AST 32 (17-59) U/L ALT 23 (4-49) U/L Alkaline Phosphatase 130 H (38-126) U/L Troponin I 0.052 H* (0.000-0.034) ng/mL Total Protein 7.6 (6.3-8.2) g/dL Albumin 4.8 (3.5-5.0) g/dL Amylase 327 H* (30-110) U/L Lipase 90 (23-300) U/L Urine Color Urine Appearance (Clear) Urine pH (5.0-8.0) Ur Specific [place] (1.001-1.035) Urine Protein (Negative) Urine Glucose (UA) (Negative) Urine Ketones (Negative) Urine Blood (Negative) Urine Nitrite (Negative) Urine Bilirubin (Negative) Urine Urobilinogen (<2.0) mg/dL Ur Leukocyte Esterase (Negative) 04/04/19 Range/Units 17:10 WBC (3.8-10.6) k/uL RBC (4.30-5.90) m/uL Hgb (13.0-17.5) gm/dL Hct (39.0-53.0) % MCV (80.0-100.0) fL MCH (25.0-35.0) pg MCHC (31.0-37.0) g/dL RDW (11.5-15.5) % Plt Count (150-450) k/uL Neutrophils % % Lymphocytes % % Monocytes % % Eosinophils % % Basophils % % Neutrophils # (1.3-7.7) k/uL Lymphocytes # (1.0-4.8) k/uL Monocytes # (0-1.0) k/uL Eosinophils # (0-0.7) k/uL Basophils # (0-0.2) k/uL Sodium (137-145) mmol/L Potassium (3.5-5.1) mmol/L Chloride (98-107) mmol/L Carbon Dioxide (22-30) mmol/L Anion Gap mmol/L BUN (9-20) mg/dL Creatinine (0.66-1.25) mg/dL Est GFR (CKD-EPI)AfAm (>60 ml/min/1.73 sqM) Est GFR (CKD-EPI)NonAf (>60 ml/min/1.73 sqM) Glucose (74-99) mg/dL Calcium (8.4-10.2) mg/dL Total Bilirubin (0.2-1.3) mg/dL AST (17-59) U/L ALT (4-49) U/L Alkaline Phosphatase (38-126) U/L Troponin I (0.000-0.034) ng/mL Total Protein (6.3-8.2) g/dL Albumin (3.5-5.0) g/dL Amylase (30-110) U/L Lipase (23-300) U/L Urine Color Light Yellow Urine Appearance Clear (Clear) Urine pH 5.5 (5.0-8.0) Ur Specific [place] 1.006 (1.001-1.035) Urine Protein Negative (Negative) Urine Glucose (UA) Negative (Negative) Urine Ketones Negative (Negative) Urine Blood Negative (Negative) Urine Nitrite Negative (Negative) Urine Bilirubin Negative (Negative) Urine Urobilinogen <2.0 (<2.0) mg/dL Ur Leukocyte Esterase Negative (Negative) - EKG Data EKG Comments: A. fib with RVR Ventricular rate 131, QRS duration, 72, QTC 510. Disposition Clinical Impression: Abdominal pain, Nausea & vomiting Disposition: HOME SELF-CARE Condition: Stable Instructions (If sedation given, give patient instructions): Abdominal Pain (ED) Additional Instructions: Please follow up with . return to emergency department if symptoms worsen. Take prescribed medication as directed Prescriptions: Dicyclomine [Bentyl] 20 mg PO TID #15 tablet Ondansetron Odt [Zofran Odt] 4 mg PO Q8HR PRN #10 tab PRN Reason: Nausea Is patient prescribed a controlled substance at d/c from ED?: No Referrals: Sourav Ellis MD [Primary Care Provider] - 1-2 days Time of Disposition: 19:40
[2019-04-04 17:28] LABS: Basophils % (A) 0 %; Eosinophils # (A) 0.1 k/uL (0-0.7); Eosinophils % (A) 2 %; HCT 48.4 % (39.0-53.0); HGB 16.5 gm/dL (13.0-17.5); Lymphocytes # (A) 1.5 k/uL (1.0-4.8); Lymphocytes % (A) 29 %; MCH 29.7 pg (25.0-35.0); MCHC 34.1 g/dL (31.0-37.0); MCV 87.3 fL (80.0-100.0); Mean Platelet Volume 7.1; Monocytes # (A) 0.1 k/uL (0-1.0); Monocytes % (A) 1 %; Neutrophils # (A) 3.3 k/uL (1.3-7.7); Neutrophils % (A) 67 %; Platelet Count 416 k/uL (150-450); RBC 5.55 m/uL (4.30-5.90); RDW 13.8 % (11.5-15.5)
[2019-04-04 17:36] LABS: ALT 23 U/L (4-49); AST 32 U/L (17-59); African American GFR (CKD) >90 (>60 ml/min/1.73 sqM); Albumin 4.8 g/dL (3.5-5.0); Alkaline Phosphatase 130 U/L (38-126); Anion Gap 13 mmol/L; Blood Urea Nitrogen 22 mg/dL (9-20); Calcium 10.9 mg/dL (8.4-10.2); Carbon Dioxide 21 mmol/L (22-30); Chloride 104 mmol/L (98-107); Glucose 129 mg/dL (74-99); Non-African American GFR(CKD) >90 (>60 ml/min/1.73 sqM); Potassium 4.1 mmol/L (3.5-5.1); Sodium 138 mmol/L (137-145); Total Bilirubin 0.7 mg/dL (0.2-1.3); Total Protein 7.6 g/dL (6.3-8.2)
[2019-04-04 17:39] LABS: Appearance,Urine Clear (Clear); Bilirubin,Urine Negative (Negative); Blood,Urine Negative (Negative); Color,Urine Light Yellow; Glucose,Urine (UA) Negative (Negative); Ketones,Urine Negative (Negative); Leukocyte Esterase,Urine Negative (Negative); Nitrite,Urine Negative (Negative); PH, Urine 5.5 (5.0-8.0); Protein,Urine Negative (Negative); Specific Gravity,Urine 1.006 (1.001-1.035); Urobilinogen,Urine <2.0 mg/dL (<2.0)
--- NOTE | 2019-04-04 18:01 | XR ---
EXAMINATION TYPE: XR KUB DATE OF EXAM: 04/04/2019 COMPARISON: 08/26/2016 HISTORY: Abdominal pain TECHNIQUE: 2 views upright FINDINGS: Bowel gas pattern is normal. There is no sign of intestinal obstruction or pneumoperitoneum . Fecal pattern is normal. Lung bases are clear. There are no pathologic calcifications over the kidn eys. IMPRESSION: Nonacute abdomen. No change.
[2019-04-04 18:03] LABS: Amylase 327 U/L (30-110)
[2019-04-04] MEDS ORDERED: ALPRAZolam 1 MG TAB PO STA (18:45)
[2019-04-04] MEDS ORDERED: DICYCLOMINE 10 MG CAP PO STA (18:45)
[2019-04-04] MEDS ORDERED: ONDANSETRON 4 MG ODT STARTER PACK 2 TAB BTL PO STA (19:38)
[2019-04-04] MEDS ORDERED: niCARdipine 20 MG in SODIUM CHLORIDE 0.9% 192 ML IV ONE (19:57)
[2019-04-04] MEDS: DILTIAZEM 125 MG in SODIUM CHLORIDE 0.9% 100 ML IV SCH (20:35)
[2019-04-04] MEDS ORDERED: NALOXONE 0.4 MG/ML 1 ML VIAL IV PRN (20:44)
[2019-04-04] MEDS: APIXABAN 2.5 MG TABLET PO SCH (22:00)
[2019-04-04] MEDS: SODIUM CHLORIDE 0.9% 1,000 ML IV SCH (22:00)
[2019-04-04 23:51] LABS: Glucose,Whole Blood 148 mg/dL (75-99)
[2019-04-05] MEDS: HYDROmorphone 0.5 MG/0.5 ML SYRINGE IVP PRN (03:07)
[2019-04-05 05:40] LABS: Basophils % (A) 0 %; Eosinophils % (A) 0 %; HCT 46.4 % (39.0-53.0); HGB 15.2 gm/dL (13.0-17.5); Lymphocytes # (A) 0.9 k/uL (1.0-4.8); Lymphocytes % (A) 7 %; MCH 28.8 pg (25.0-35.0); MCHC 32.7 g/dL (31.0-37.0); MCV 88.2 fL (80.0-100.0); Mean Platelet Volume 7.1; Monocytes # (A) 0.7 k/uL (0-1.0); Monocytes % (A) 6 %; Neutrophils # (A) 10.4 k/uL (1.3-7.7); Neutrophils % (A) 85 %; Platelet Count 397 k/uL (150-450); RBC 5.26 m/uL (4.30-5.90); RDW 14.2 % (11.5-15.5); WBC 12.1 k/uL (3.8-10.6)
[2019-04-05 05:54] LABS: African American GFR (CKD) >90 (>60 ml/min/1.73 sqM); Anion Gap 8 mmol/L; Blood Urea Nitrogen 15 mg/dL (9-20); Calcium 9.1 mg/dL (8.4-10.2); Carbon Dioxide 23 mmol/L (22-30); Chloride 106 mmol/L (98-107); Glucose 134 mg/dL (74-99); Magnesium 2.1 mg/dL (1.6-2.3); Non-African American GFR(CKD) >90 (>60 ml/min/1.73 sqM); Potassium 3.9 mmol/L (3.5-5.1); Sodium 137 mmol/L (137-145)
[2019-04-05 06:54] LABS: Glucose,Whole Blood 130 mg/dL (75-99)
[2019-04-05] MEDS: APIXABAN 2.5 MG TABLET PO SCH ×2 (09:03→20:56)
[2019-04-05] MEDS: DILTIAZEM 125 MG in SODIUM CHLORIDE 0.9% 100 ML IV SCH (09:39)
--- NOTE | 2019-04-05 10:13 | P.CRDCN ---
History of Present Illness Consult date: 04/05/19 History of present illness: This is a 53-year-old gentleman who was recently at [facility] with sepsis and was found to have abnormal troponin values. Subsequently, patient had a cardiac catheterization and was found to have intermediate disease and had stent placement because of documented cardiac arrhythmia in the form of nonsustained V. tach. He was readmitted to the hospital on with complaints of mainly abdominal pain, diarrhea and body aches suggestive of flulike symptoms. His troponins are mildly elevated but the pattern was not consistent with acute coronary injury pattern. Patient went home and then came back again with complaints of abdominal pain. The abdominal pain, most appears to be on the left side and also mid and lower abdomen. Patient apparently was constipated and was given some edema. Has been having some diarrhea. Denies any chest pain but complaints of neck and body pains. His troponins again are mildly elevated but the pattern is not consistent with acute coronary syndrome. EKG did not reveal any acute changes. His amylase is mildly elevated. Surgical consult was obtained and ultrasound of the abdomen is being done. From Cardec standpoint we'll continue to monitor him. Patient's is on IV Cardizem and also on metoprolol for rate control. He'll continue with aspirin and Plavix and Apixaban. Review of Systems As per the chart Past Medical History Past Medical History: Atrial Fibrillation, Coronary Artery Disease (CAD), Chest Pain / Angina, Diabetes Mellitus, GERD/Reflux, Hyperlipidemia, Hypertension, Myocardial Infarction ([place]) Additional Past Medical History / Comment(s): restlesss leg syndrome, sleep study pt states "the results were really really bad." Last Myocardial Infarction Date:: 02/26/2019 History of Any Multi-Drug Resistant Organisms: None Reported Past Surgical History: Heart Catheterization, Heart Catheterization With Stent, Orthopedic Surgery Additional Past Surgical History / Comment(s): Pt states "I have had a nose job." Past Anesthesia/Blood Transfusion Reactions: No Reported Reaction Date of Last Stent Placement:: 03/29/19 Past Psychological History: Anxiety, Depression Smoking Status: Current every day smoker Past Alcohol Use History: None Reported Past Drug Use History: None Reported - Past Family History Father Family Medical History: AFIB, Coronary Artery Disease (CAD) Additional Family Medical History / Comment(s): pacemaker, blood thinners Medications and Allergies Home Medications Medication Instructions Recorded Confirmed Type Furosemide [Lasix] 20 mg PO BID 08/26/16 04/04/19 History DULoxetine HCL [Cymbalta] 60 mg PO BID 03/29/19 04/04/19 History Apixaban [Eliquis] 2.5 mg PO BID #90 tablet 03/30/19 04/04/19 Rx Aspirin 81 mg PO DAILY chew 03/30/19 04/04/19 Rx Clopidogrel [Plavix] 75 mg PO DAILY #180 tab 03/30/19 04/04/19 Rx Diltiazem Oral [Cardizem*] 60 mg PO TID #270 tab 03/30/19 04/04/19 Rx Famotidine [Pepcid] 20 mg PO DAILY PRN #30 tab 03/30/19 04/04/19 Rx Metoprolol Tartrate [Lopressor] 100 mg PO BID #180 tab 03/30/19 04/04/19 Rx Nitroglycerin Sl Tabs [Nitrostat] 0.4 mg SUBLINGUAL Q5M PRN #20 tab 03/30/19 04/04/19 Rx Atorvastatin [Lipitor] 20 mg PO HS 04/02/19 04/04/19 History Diclofenac Potassium [Cataflam] 50 mg PO TID PRN 04/02/19 04/04/19 History tiZANidine HCL 4 mg PO TID PRN 04/02/19 04/04/19 History HYDROcodone/APAP 5-325MG [[place] 1 tab PO Q4HR PRN 3 Days #18 tab 04/03/19 04/04/19 Rx 5-325] Dicyclomine [Bentyl] 20 mg PO TID #15 tablet 04/04/19 Rx Ondansetron Odt [Zofran Odt] 4 mg PO Q8HR PRN #10 tab 04/04/19 Rx Allergies Allergy/AdvReac Type Severity Reaction Status Date / Time No Known Allergies Allergy Verified 04/04/19 21:15 Physical Exam Vitals: Vital Signs Temp Pulse Resp BP Pulse Ox 04/05/19 08:00 98.1 F 98 22 121/84 97 04/05/19 04:45 93 22 131/94 96 04/05/19 04:30 89 20 122/96 95 04/05/19 04:15 104 H 20 116/94 94 L 04/05/19 04:00 98.2 F 93 18 114/89 95 04/05/19 03:45 107 H 19 162/113 94 L 04/05/19 03:30 101 H 24 175/135 93 L 04/05/19 03:15 118 H 15 184/113 97 04/05/19 03:00 93 17 153/116 97 04/05/19 02:45 96 14 134/107 97 04/05/19 02:30 55 L 22 130/97 97 04/05/19 02:15 96 21 149/95 96 04/05/19 02:00 88 19 134/110 96 04/05/19 01:45 85 22 113/86 96 04/05/19 01:30 102 H 19 118/84 94 L 04/05/19 01:15 96 21 100/79 94 L 04/05/19 01:00 105 H 18 105/72 95 04/05/19 00:45 98 22 105/79 94 L 04/05/19 00:30 95 15 111/82 95 04/05/19 00:23 90 16 111/82 92 L 04/05/19 00:15 113 H 16 114/84 97 04/05/19 00:00 123 H 20 95 04/04/19 23:46 116 H 16 97 04/04/19 23:30 98.0 F 112 H 16 121/79 95 04/04/19 23:19 98.4 F 100 17 121/79 99 04/04/19 22:04 97 17 109/92 99 04/04/19 21:05 92 18 102/72 100 04/04/19 21:00 87 18 99/84 100 04/04/19 19:49 168/104 04/04/19 19:37 98.1 F 118 H 20 162/110 99 04/04/19 18:41 129 H 22 167/107 99 04/04/19 18:10 97.9 F 102 H 18 138/87 100 04/04/19 15:07 98.3 F 88 20 151/96 94 L Intake and Output 04/04/19 04/05/19 04/05/19 22:59 06:59 14:59 Intake Total 119.667 17.5 91 Output Total 0 400 Balance 119.667 -382.5 91 Intake: IV 75 Sodium Chloride 0.9% 1, 75 000 ml @ 75 mls/hr IV . [id number] [facility] Rx#:[id number] Intake, IV Titration 44.667 17.5 91 Amount Diltiazem 125 mg In 4.667 17.5 91 Sodium Chloride 0.9% 100 ml @ 10 MG/HR 10 mls/hr IV .[id number] [facility] Rx#: [id number] niCARdipine 20 mg In 40 Sodium Chloride 0.9% 192 ml @ 10 MG/HR 100 mls/hr IV .Q2H ONE Rx#:[id number] Output: Urine 0 400 Other: Voiding Method Toilet Toilet Urinal Urinal # Voids 0 1 Weight 72.212 kg 68.3 kg GENERAL EXAM: Patient is alert and oriented and doesn't appear to be in any acute distress HEENT: Normocephalic. Normal reaction of pupils, equal size, normal range of extraocular motion. No erythema or exudates in the throat. NECK: No masses, no nuchal rigidity. CHEST: No chest wall deformity. LUNGS: Equal air entry with no crackles or wheeze. HEART: S1 and S2 normal with no audible mumurs or gallops. Regular rhythm, femorals equal on both sides.. ABDOMEN: Soft with mild tenderness SKIN: No rashes CENTRAL NERVOUS SYSTEM: No focal deficits. EXTREMITIES: No cyanosis, clubbing or edema. Results 04/05/19 05:02 04/05/19 05:02 Cardiac Enzymes 04/04/19 04/04/19 04/04/19 Range/Units 17:10 17:10 22:27 AST 32 (17-59) U/L Troponin I 0.052 H* 0.161 H* (0.000-0.034) ng/mL 04/05/19 Range/Units 05:02 AST (17-59) U/L Troponin I 0.127 H* (0.000-0.034) ng/mL CBC 04/04/19 04/05/19 Range/Units 17:10 05:02 WBC 5.0 12.1 H (3.8-10.6) k/uL RBC 5.55 5.26 (4.30-5.90) m/uL Hgb 16.5 15.2 (13.0-17.5) gm/dL Hct 48.4 46.4 (39.0-53.0) % Plt Count 416 397 (150-450) k/uL Comprehensive Metabolic Panel 04/04/19 04/05/19 Range/Units 17:10 05:02 Sodium 138 137 (137-145) mmol/L Potassium 4.1 3.9 (3.5-5.1) mmol/L Chloride 104 106 (98-107) mmol/L Carbon Dioxide 21 L 23 (22-30) mmol/L BUN 22 H 15 (9-20) mg/dL Creatinine 0.90 0.76 (0.66-1.25) mg/dL Glucose 129 H 134 H (74-99) mg/dL Calcium 10.9 H 9.1 (8.4-10.2) mg/dL AST 32 (17-59) U/L ALT 23 (4-49) U/L Alkaline Phosphatase 130 H (38-126) U/L Total Protein 7.6 (6.3-8.2) g/dL Albumin 4.8 (3.5-5.0) g/dL Current Medications Generic Name Dose Route Start Last Admin Trade Name Freq PRN Reason Stop Dose Admin Apixaban 2.5 mg 04/04/19 21:00 04/05/19 09:03 Eliquis PO 2.5 mg BID [facility] Administration Aspirin 81 mg 04/05/19 09:45 Aspirin PO DAILY [facility] Atorvastatin Calcium 20 mg 04/05/19 21:00 Lipitor PO HS [facility] Clopidogrel Bisulfate 75 mg 04/05/19 09:45 Plavix PO DAILY [facility] Hydromorphone HCl 0.5 mg 04/04/19 20:44 04/05/19 03:07 Dilaudid IVP 0.5 mg Q3HR PRN Administration Moderate Pain Diltiazem HCl 125 mg/ Sodium 125 mls @ 10 mls/hr 04/04/19 20:15 04/05/19 09:39 Chloride IV 10 mg/hr .[id number] [facility] 10 mls/hr Administration 10 MG/HR Sodium Chloride 1,000 mls @ 75 mls/hr 04/04/19 20:45 04/04/19 22:00 Saline 0.9% IV 75 mls/hr .[id number] [facility] Administration Metoprolol Tartrate 100 mg 04/05/19 09:45 Lopressor PO BID [facility] Morphine Sulfate 4 mg 04/04/19 20:44 Morphine Sulfate (Inj) IV Q4HR PRN Severe Pain Naloxone HCl 0.2 mg 04/04/19 20:44 Narcan IV Q2M PRN Opioid Reversal Intake and Output 04/04/19 04/05/19 04/05/19 22:59 06:59 14:59 Intake Total 119.667 17.5 91 Output Total 0 400 Balance 119.667 -382.5 91 Intake: IV 75 Sodium Chloride 0.9% 1, 75 000 ml @ 75 mls/hr IV . [id number] [facility] Rx#:[id number] Intake, IV Titration 44.667 17.5 91 Amount Diltiazem 125 mg In 4.667 17.5 91 Sodium Chloride 0.9% 100 ml @ 10 MG/HR 10 mls/hr IV .[id number] [facility] Rx#: [id number] niCARdipine 20 mg In 40 Sodium Chloride 0.9% 192 ml @ 10 MG/HR 100 mls/hr IV .Q2H ONE Rx#:[id number] Output: Urine 0 400 Other: Voiding Method Toilet Toilet Urinal Urinal # Voids 0 1 Weight 72.212 kg 68.3 kg 04/05/19 05:02 04/05/19 05:02 EKG Interpretations (text) Atrial fibrillation with moderately rapid ventricular response Assessment and Plan (1) History of coronary artery disease Current Visit: Yes Status: Acute Code(s): Z86.79 - PERSONAL HISTORY OF OTHER DISEASES OF THE CIRCULATORY SYSTEM SNOMED Code(s): 878682233 (2) Abdominal pain Current Visit: Yes Status: Acute Code(s): R10.9 - UNSPECIFIED ABDOMINAL PAIN SNOMED Code(s): 08507593 (3) Atrial fibrillation Current Visit: No Status: Acute Code(s): I48.91 - UNSPECIFIED ATRIAL FI BRILLATION SNOMED Code(s): 56182173 (4) Elevated troponin Current Visit: No Status: Acute Code(s): R79.89 - OTHER SPECIFIED ABNORMAL FINDINGS OF BLOOD CHEMISTRY SNOMED Code(s): 760302442 Plan: Continue to evaluate abdominal pain. Continue his home medications and keep on IV Cardizem. His troponins are elevated but the pattern is not consistent with acute coronary syndrome. Surgical consult and ultrasound of the abdomen to obtain it. Further examination depend upon the clinical course and recommendations of specialist.
[2019-04-05] MEDS: CLOPIDOGREL 75 MG TAB PO SCH (11:00)
[2019-04-05] MEDS: METOPROLOL TARTRATE 50 MG TAB PO SCH ×2 (11:00→20:56)
[2019-04-05] MEDS: ASPIRIN 81 MG PO SCH (11:00)
[2019-04-05] MEDS: MORPHINE SULFATE 4 MG/ML SYRINGE IV PRN ×3 (11:00→18:54)
[2019-04-05] MEDS: SODIUM CHLORIDE 0.9% 1,000 ML IV SCH (11:01)
--- NOTE | 2019-04-05 11:04 | US ---
EXAMINATION TYPE: US abdomen complete DATE OF EXAM: 04/05/2019 COMPARISON: NONE CLINICAL HISTORY: abd pain. Generalized pain. No previous surgeries. Exam performed portable in ICU EXAM MEASUREMENTS: Liver Length: 15.5 cm Gallbladder Wall: 0.2 cm CBD: 0.5 cm Spleen: 7.7 cm Right Kidney: 9.8 x 5.1 x 4.2 cm Left Kidney: 10.6 x 3.8 x 4.9 cm Pancreas: Tail obscured by overlying bowel gas, echogenic in appearance Liver: wnl Gallbladder: wnl Evidence for sonographic Sanchez's sign: neg CBD: wnl Spleen: wnl Right Kidney: wnl Left Kidney: wnl Upper IVC: wnl Abd Aorta: Proximal obscured by overlying bowel gas Kidneys show normal cortical medullary differentiation. There is no ascites. IMPRESSION: Exam is somewhat limited. No abnormality evident to account for patient's symptoms.
[2019-04-05 12:08] LABS: Glucose,Whole Blood 132 mg/dL (75-99)
[2019-04-05] MEDS ORDERED: NITROGLYCERIN SL TABS 0.4 MG TAB SUBLINGUAL PRN (14:14)
[2019-04-05] MEDS: FUROSEMIDE 20 MG TAB PO SCH (15:47)
[2019-04-05] MEDS: DILTIAZEM ORAL 60 MG TAB PO SCH ×2 (15:47→21:03)
--- NOTE | 2019-04-05 17:12 | P.HPIM ---
History of Present Illness Patient came in with abdominal pain and epigastric area and also lower quadrant area which is relieved secondary to constipation patient Received enema after which abdominal pain resolved patient is comparing of epigastric burning se nsation consistent with peptic ulcer disease for which patient will be started on Protonix. Patient troponins are bit elevated because of cardiology was consulted cardiology evaluated the patient apparently patient had a recent cardiac catheterization for a cardiac cardiac arrhythmia, V. tach, cardiac catheterization which was done and patient had a cardiac stent. Patient is also company of flulike symptoms of body aches, chills. Patient to Fritz aiken with IV Cardizem is also on beta justyn patient will be started on beta justyn oral Cardizem will be started and will try to taper and wean down the Cardizem patient's heart rate is anywhere between the 90s to 110. Patient is on anticoagulation with Eliquis. Patient had an elevation of amylase with normal lipase which is a nonspecific elevation. Review of Systems REVIEW OF SYSTEMS: CONSTITUTIONAL: As mentioned in HPI HEENT: No recent visual problems or hearing problems. Denied any sore throat. CARDIOVASCULAR: No chest pain, orthopnea, PND, no palpitations, no syncope. PULMONARY: No shortness of breath, no cough, no hemoptysis. GASTROINTESTINAL: As mentioned in HPI NEUROLOGICAL: No headaches, no weakness, no numbness. HEMATOLOGICAL: Denies any bleeding or petechiae. GENITOURINARY: Denies any burning micturition, frequency, or urgency. MUSCULOSKELETAL/RHEUMATOLOGICAL: Denies any joint pain, swelling, or any muscle pain. ENDOCRINE: Denies any polyuria or polydipsia. The rest of the 14-point review of systems is negative. Past Medical History Past Medical History: Atrial Fibrillation, Coronary Artery Disease (CAD), Chest Pain / Angina, Diabetes Mellitus, GERD/Reflux, Hyperlipidemia, Hypertension, Myocardial Infarction ([place]) Additional Past Medical History / Comment(s): restlesss leg syndrome, sleep study pt states "the results were really really bad." Last Myocardial Infarction Date:: 02/26/2019 History of Any Multi-Drug Resistant Organisms: None Reported Past Surgical History: Heart Catheterization, Heart Catheterization With Stent, Orthopedic Surgery Additional Past Surgical History / Comment(s): Pt states "I have had a nose job." Past Anesthesia/Blood Transfusion Reactions: No Reported Reaction Date of Last Stent Placement:: 03/29/19 Past Psychological History: Anxiety, Depression Smoking Status: Current every day smoker Past Alcohol Use History: None Reported Past Drug Use History: None Reported - Past Family History Father Family Medical History: AFIB, Coronary Artery Disease (CAD) Additional Family Medical History / Comment(s): pacemaker, blood thinners Medications and Allergies Home Medications Medication Instructions Recorded Confirmed Type Furosemide [Lasix] 20 mg PO BID 08/26/16 04/04/19 History DULoxetine HCL [Cymbalta] 60 mg PO BID 03/29/19 04/04/19 History Apixaban [Eliquis] 2.5 mg PO BID #90 tablet 03/30/19 04/04/19 Rx Aspirin 81 mg PO DAILY chew 03/30/19 04/04/19 Rx Clopidogrel [Plavix] 75 mg PO DAILY #180 tab 03/30/19 04/04/19 Rx Diltiazem Oral [Cardizem*] 60 mg PO TID #270 tab 03/30/19 04/04/19 Rx Famotidine [Pepcid] 20 mg PO DAILY PRN #30 tab 03/30/19 04/04/19 Rx Metoprolol Tartrate [Lopressor] 100 mg PO BID #180 tab 03/30/19 04/04/19 Rx Nitroglycerin Sl Tabs [Nitrostat] 0.4 mg SUBLINGUAL Q5M PRN #20 tab 03/30/19 04/04/19 Rx Atorvastatin [Lipitor] 20 mg PO HS 04/02/19 04/04/19 History Diclofenac Potassium [Cataflam] 50 mg PO TID PRN 04/02/19 04/04/19 History tiZANidine HCL 4 mg PO TID PRN 04/02/19 04/04/19 History HYDROcodone/APAP 5-325MG [[place] 1 tab PO Q4HR PRN 3 Days #18 tab 04/03/19 04/04/19 Rx 5-325] Dicyclomine [Bentyl] 20 mg PO TID #15 tablet 04/04/19 Rx Ondansetron Odt [Zofran Odt] 4 mg PO Q8HR PRN #10 tab 04/04/19 Rx Allergies Allergy/AdvReac Type Severity Reaction Status Date / Time No Known Allergies Allergy Verified 04/04/19 21:15 Physical Exam Vitals: Vital Signs Temp Pulse Resp BP Pulse Ox 04/05/19 16:01 97.6 F 80 15 117/89 96 04/05/19 12:00 98 F 102 H 16 124/95 97 04/05/19 08:00 98.1 F 98 22 121/84 97 04/05/19 04:45 93 22 131/94 96 04/05/19 04:30 89 20 122/96 95 04/05/19 04:15 104 H 20 116/94 94 L 04/05/19 04:00 98.2 F 93 18 114/89 95 04/05/19 03:45 107 H 19 162/113 94 L 04/05/19 03:30 101 H 24 175/135 93 L 04/05/19 03:15 118 H 15 184/113 97 04/05/19 03:00 93 17 153/116 97 04/05/19 02:45 96 14 134/107 97 04/05/19 02:30 55 L 22 130/97 97 04/05/19 02:15 96 21 149/95 96 04/05/19 02:00 88 19 134/110 96 04/05/19 01:45 85 22 113/86 96 04/05/19 01:30 102 H 19 118/84 94 L 04/05/19 01:15 96 21 100/79 94 L 04/05/19 01:00 105 H 18 105/72 95 04/05/19 00:45 98 22 105/79 94 L 04/05/19 00:30 95 15 111/82 95 04/05/19 00:23 90 16 111/82 92 L 04/05/19 00:15 113 H 16 114/84 97 04/05/19 00:00 123 H 20 95 04/04/19 23:46 116 H 16 97 04/04/19 23:30 98.0 F 112 H 16 121/79 95 04/04/19 23:19 98.4 F 100 17 121/79 99 04/04/19 22:04 97 17 109/92 99 04/04/19 21:05 92 18 102/72 100 04/04/19 21:00 87 18 99/84 100 04/04/19 19:49 168/104 04/04/19 19:37 98.1 F 118 H 20 162/110 99 04/04/19 18:41 129 H 22 167/107 99 04/04/19 18:10 97.9 F 102 H 18 138/87 100 Intake and Output 04/05/19 04/05/19 04/05/19 06:59 14:59 22:59 Intake Total 17.5 706 Output Total 400 600 Balance -382.5 106 Intake: IV 375 Sodium Chloride 0.9% 1, 375 000 ml @ 75 mls/hr IV . [id number] [facility] Rx#:[id number] Intake, IV Titration 17.5 91 Amount Diltiazem 125 mg In 17.5 91 Sodium Chloride 0.9% 100 ml @ 10 MG/HR 10 mls/hr IV .[id number] [facility] Rx#: [id number] Oral 240 Output: Urine 400 600 Other: Voiding Method Toilet Urinal Urinal # Voids 1 # Bowel Movements 1 1 Weight 68.3 kg 68.3 kg PHYSICAL EXAMINATION: GENERAL: The patient is alert and oriented x3, not in any acute distress. Well developed, well nourished. HEENT: Pupils are round and equally reacting to light. EOMI. No scleral icterus. No conjunctival pallor. Normocephalic, atraumatic. No pharyngeal erythema. No thyromegaly. CARDIOVASCULAR: S1 and S2 present. No murmurs, rubs, or gallops. PULMONARY: Chest is clear to auscultation, no wheezing or crackles. ABDOMEN: Soft, nontender, nondistended, normoactive bowel sounds. No palpable organomegaly. MUSCULOSKELETAL: No joint swelling or deformity. EXTREMITIES: No cyanosis, clubbing, or pedal edema. NEUROLOGICAL: Gross neurological examination did not reveal any focal deficits. SKIN: No rashes. Results CBC & Chem 7: 04/05/19 05:02 04/05/19 05:02 Labs: Abnormal Lab Results - Last 24 Hours (Table) 04/04/19 04/04/19 04/04/19 Range/Units 17:10 17:10 22:27 WBC (3.8-10.6) k/uL Neutrophils # (1.3-7.7) k/uL Lymphocytes # (1.0-4.8) k/uL Carbon Dioxide 21 L (22-30) mmol/L BUN 22 H (9-20) mg/dL Glucose 129 H (74-99) mg/dL POC Glucose (mg/dL) (75-99) mg/dL Calcium 10.9 H (8.4-10.2) mg/dL Alkaline Phosphatase 130 H (38-126) U/L Troponin I 0.052 H* 0.161 H* (0.000-0.034) ng/mL Amylase 327 H* (30-110) U/L 04/04/19 04/05/19 04/05/19 Range/Units 23:40 05:02 05:02 WBC 12.1 H (3.8-10.6) k/uL Neutrophils # 10.4 H (1.3-7.7) k/uL Lymphocytes # 0.9 L (1.0-4.8) k/uL Carbon Dioxide (22-30) mmol/L BUN (9-20) mg/dL Glucose (74-99) mg/dL POC Glucose (mg/dL) 148 H (75-99) mg/dL Calcium (8.4-10.2) mg/dL Alkaline Phosphatase (38-126) U/L Troponin I 0.127 H* (0.000-0.034) ng/mL Amylase (30-110) U/L 04/05/19 04/05/19 04/05/19 Range/Units 05:02 06:42 11:56 WBC (3.8-10.6) k/uL Neutrophils # (1.3-7.7) k/uL Lymphocytes # (1.0-4.8) k/uL Carbon Dioxide (22-30) mmol/L BUN (9-20) mg/dL Glucose 134 H (74-99) mg/dL POC Glucose (mg/dL) 130 H 132 H (75-99) mg/dL Calcium (8.4-10.2) mg/dL Alkaline Phosphatase (38-126) U/L Troponin I (0.000-0.034) ng/mL Amylase (30-110) U/L Thrombosis Risk Factor Assmnt - Choose All That Apply Each Factor Represents 1 point: Obesity (BMI >25), Sepsis (< 1month) Other Risk Factors: No Other congenital or acquired thrombophilia - If yes, enter type in comment: No Thrombosis Risk Factor Assessment Total Risk Factor Score: 2 Thrombosis Risk Factor Assessment Level: Low Risk Assessment and Plan Plan: Epigastric abdominal pain probably viral gastritis or peptic ulcer disease patient will be started on Protonix. Patient is constipated that resolved with an edema and his constipation is secondary to Bentyl which was discontinued. Patient is also on [place] which can cause constipation. -Mildly elevated troponins cardiac eval and the patient they do not believe this elevation of troponins are secondary to acute mitral infarction. -Atrial fibrillation rapid and regular rate IV Cardizem will be transitioned to oral Cardizem continue with metoprolol continue with Eliquis if his heart rate is controlled without IV Cardizem patient probably can be discharged tomorrow.- Carotid disease with recent cardiac ablation stent placement patient is on both aspirin and Plavix along a statin which will continue Having gaseous visual reflux disease -Hyperlipidemia -Hypertension -Restless leg syndrome -Depression For above-mentioned chronic medical problems patient will be resumed on appropriate home medications.
[2019-04-05 17:17] LABS: Glucose,Whole Blood 136 mg/dL (75-99)
[2019-04-05] MEDS: ATORVASTATIN 20 MG TAB PO SCH (20:56)
[2019-04-05] MEDS: DULoxetine HCL 60 MG CAPSULE.DR PO SCH (20:56)
[2019-04-05 21:00] LABS: Glucose,Whole Blood 125 mg/dL (75-99)
[2019-04-06] MEDS: MORPHINE SULFATE 4 MG/ML SYRINGE IV PRN ×4 (00:50→20:24)
[2019-04-06] MEDS: SODIUM CHLORIDE 0.9% 1,000 ML IV SCH ×2 (01:19→08:19)
[2019-04-06] MEDS: HYDROmorphone 0.5 MG/0.5 ML SYRINGE IVP PRN ×4 (04:34→22:37)
[2019-04-06 07:23] LABS: Glucose,Whole Blood 119 mg/dL (75-99)
[2019-04-06] MEDS: METOPROLOL TARTRATE 50 MG TAB PO SCH ×2 (08:18→21:08)
[2019-04-06] MEDS: ASPIRIN 81 MG PO SCH (08:18)
[2019-04-06] MEDS: DULoxetine HCL 60 MG CAPSULE.DR PO SCH ×2 (08:18→21:08)
[2019-04-06] MEDS: DILTIAZEM ORAL 60 MG TAB PO SCH ×3 (08:19→21:08)
[2019-04-06] MEDS: APIXABAN 2.5 MG TABLET PO SCH ×2 (08:19→21:08)
[2019-04-06] MEDS: FUROSEMIDE 20 MG TAB PO SCH ×2 (08:19→15:01)
[2019-04-06] MEDS: CLOPIDOGREL 75 MG TAB PO SCH (08:19)
[2019-04-06 08:57] LABS: Basophils % (A) 1 %; Eosinophils # (A) 0.1 k/uL (0-0.7); Eosinophils % (A) 2 %; HCT 42.5 % (39.0-53.0); Lymphocytes % (A) 26 %; MCH 29.3 pg (25.0-35.0); MCV 88.8 fL (80.0-100.0); Monocytes # (A) 0.4 k/uL (0-1.0); Monocytes % (A) 6 %; Neutrophils # (A) 4.8 k/uL (1.3-7.7); Neutrophils % (A) 64 %; Platelet Count 334 k/uL (150-450); RBC 4.79 m/uL (4.30-5.90); WBC 7.5 k/uL (3.8-10.6)
[2019-04-06 09:16] LABS: African American GFR (CKD) >90 (>60 ml/min/1.73 sqM); Anion Gap 6 mmol/L; Blood Urea Nitrogen 11 mg/dL (9-20); Calcium 8.8 mg/dL (8.4-10.2); Carbon Dioxide 25 mmol/L (22-30); Chloride 107 mmol/L (98-107); Glucose 163 mg/dL (74-99); Non-African American GFR(CKD) >90 (>60 ml/min/1.73 sqM); Potassium 3.5 mmol/L (3.5-5.1); Sodium 138 mmol/L (137-145)
[2019-04-06] MEDS ORDERED: Potassium Replacement Protocol 1 EACH MISC MISCELLANE PRN (10:47)
[2019-04-06] MEDS: POTASSIUM CHLORIDE ER 20 MEQ TAB.ER PO SCH ×2 (11:00→15:01)
[2019-04-06 11:18] LABS: Glucose,Whole Blood 100 mg/dL (75-99)
--- NOTE | 2019-04-06 12:00 | PN ---
PROGRESS NOTE Mr. Walker is a gentleman with a history of CAD and PCI and stenting of mid RCA performed by Dr. Biggs on May 30. He also had what seems to be a significant lesion in the mid RCA and also had episodes of nonsustained VT. He also came in to [facility] with chest pain, had sepsis and non ST elevation [place] and subsequent cardiac cath revealed significant RCA lesion with intervention. However, this hospitalization happened yesterday mainly with increasing abdominal discomfort, diarrhea, constipation for which he received enema and felt somewhat better. His symptoms were noncardiac in etiology. Troponin profile does not suggest any myocardial injury. He is resting comfortably without symptoms. His troponins are borderline equivocal and do not represent any myocardial injury. He has not had any further ventricular tachycardia. He is known to have atrial fibrillation. He is already on Eliquis 2.5 mg b.i.d., aspirin and Plavix in view of his recent stenting. Rate control is optimal. He is resting comfortably without symptoms. Vital signs are stable. There is no JVD. S1-S2 heard normally. Short systolic murmur noted. Lungs reveal improved air entry. Abdomen is soft. No tenderness. He had his breakfast this morning. Plan is to continue current medications. Increase activity and his rate control is acceptable. He can be moved to telemetry unit and can be discharged whenever it is okayed by his admitting doctor. His atrial fib rate is in the 90s at this time. He can be discharged whenever it is okay by the admitting doctor. Cardiac-pablo appears to be quite stable. Abdominal ultrasound did not reveal any significant abnormalities and the diarrhea has resolved. MMODL / IJN: [id number] /
[2019-04-06] MEDS ORDERED: TEMAZEPAM 15 MG CAP PO PRN (16:00)
[2019-04-06] MEDS: NICOTINE 14MG/24HR PATCH TRANSDERM SCH (16:11)
[2019-04-06] MEDS: PANTOPRAZOLE 40 MG TABLET PO SCH (16:11)
[2019-04-06 17:08] LABS: Glucose,Whole Blood 105 mg/dL (75-99)
[2019-04-06] MEDS: ALPRAZolam 0.25 MG TAB PO PRN ×2 (17:08→23:58)
--- NOTE | 2019-04-06 18:47 | PN ---
PROGRESS NOTE DATE OF SERVICE: 04/06/2019 This 53-year-old gentleman with a past medical history of multiple medical problems was admitted with nausea, vomiting and unable to keep anything down. The patient also had features of mildly elevated troponin, atrial fibrillation with rapid ventricular rate. Patient being closely monitored in ICU at this time. An abdominal ultrasound shows no acute abnormality. Patient closely monitored at this time. PAST MEDICAL HISTORY: Reviewed. REVIEW OF SYSTEMS: CARDIOVASCULAR: No angina. RESPIRATORY: As mentioned earlier. GI: As mentioned earlier. : No dysuria. NERVOUS SYSTEM: No numbness or weakness. CURRENT MEDICATIONS: 1. Eliquis 2.5 mg p.o. b.i.d. 2. Aspirin 81 mg. 3. Lipitor 20 mg at bedtime. 4. Plavix 75 mg. 5. Cardizem 60 mg t.i.d. 6. Cymbalta. 7. Lasix. 8. Dilaudid. 9. Lopressor. 10.Morphine sulfate. 11.Narcan. 12.Nitrostat. Doses are reviewed. PHYSICAL EXAM: Patient is alert and oriented x2. Pulse is 84, blood pressure 113/107, respiration 27, temperature 97.8, pulse ox 94% on room air. HEENT: Conjunctivae normal. Oral mucosa moist. NECK: No jugular venous distention. No lymph node enlargement. CARDIOVASCULAR: S1, S2; muffled. RESPIRATORY: Diminished breath sounds at the bases. A few scattered rhonchi and crackles. ABDOMEN: Soft, mildly obese, nontender. LEGS: No swelling. NERVOUS SYSTEM: Higher functions mentioned earlier. Moves all four limbs. No focal deficits. LYMPHATICS: No lymph node in neck or axilla. SKIN: No rash. JOINTS: No active deforming arthropathy. LABS: CBC within normal limits. Glucose 163. ASSESSMENT: 1. Vomiting, possibly acute gastritis, present on admission. Rule out peptic ulcer disease. 2. Atrial fibrillation with rapid ventricular rate status post Cardizem drip. 3. Hypertension. 4. Hyperlipidemia. 5. Restless leg syndrome. 6. Depression. 7. Troponin 0.161 and 0.127, undetermined etiology, rule out acute coronary syndrome. 8. Hypercalcemia. 9. History of coronary artery disease. 10.History of myocardial infarction. 11.History of coronary artery disease/stent. 12.History of anxiety, depression. 13.History of nicotine dependence, continued ongoing. RECOMMENDATIONS AND DISCUSSION: In this 53-year-old gentleman who presented with multiple complex medical issues, we will monitor the patient closely, continue the current management and symptomatic treatment. Resume the home medications. Closely follow with Cardiology. Prognosis guarded. Further recommendations to follow. See orders for further details. MMODL / IJN: [id number] /
[2019-04-06 20:56] LABS: Glucose,Whole Blood 97 mg/dL (75-99)
[2019-04-06] MEDS: ATORVASTATIN 20 MG TAB PO SCH (21:08)
[2019-04-07] MEDS: MORPHINE SULFATE 4 MG/ML SYRINGE IV PRN (04:01)
[2019-04-07 05:03] LABS: Basophils % (A) 1 %; Eosinophils # (A) 0.1 k/uL (0-0.7); Eosinophils % (A) 2 %; HCT 42.1 % (39.0-53.0); HGB 13.7 gm/dL (13.0-17.5); Lymphocytes % (A) 31 %; MCHC 32.6 g/dL (31.0-37.0); Mean Platelet Volume 6.6; Monocytes # (A) 0.5 k/uL (0-1.0); Monocytes % (A) 8 %; Neutrophils # (A) 3.5 k/uL (1.3-7.7); Neutrophils % (A) 55 %; Platelet Count 306 k/uL (150-450); RBC 4.73 m/uL (4.30-5.90); RDW 13.8 % (11.5-15.5); WBC 6.4 k/uL (3.8-10.6)
[2019-04-07 05:18] LABS: African American GFR (CKD) >90 (>60 ml/min/1.73 sqM); Anion Gap 4 mmol/L; Blood Urea Nitrogen 13 mg/dL (9-20); Calcium 8.9 mg/dL (8.4-10.2); Carbon Dioxide 27 mmol/L (22-30); Chloride 105 mmol/L (98-107); Glucose 91 mg/dL (74-99); Non-African American GFR(CKD) >90 (>60 ml/min/1.73 sqM); Potassium 4.3 mmol/L (3.5-5.1); Sodium 136 mmol/L (137-145)
[2019-04-07] MEDS: HYDROcodone/APAP 5-325MG 1 EACH TAB PO PRN ×3 (05:23→17:52)
[2019-04-07] MEDS: PANTOPRAZOLE 40 MG TABLET PO SCH (07:05)
[2019-04-07 07:10] LABS: Glucose,Whole Blood 111 mg/dL (75-99)
[2019-04-07] MEDS: CLOPIDOGREL 75 MG TAB PO SCH (08:18)
[2019-04-07] MEDS: DULoxetine HCL 60 MG CAPSULE.DR PO SCH ×2 (08:18→20:32)
[2019-04-07] MEDS: APIXABAN 2.5 MG TABLET PO SCH ×2 (08:18→20:33)
[2019-04-07] MEDS: FUROSEMIDE 20 MG TAB PO SCH ×2 (08:18→16:07)
[2019-04-07] MEDS: METOPROLOL TARTRATE 50 MG TAB PO SCH (08:18)
[2019-04-07] MEDS: ASPIRIN 81 MG PO SCH (08:18)
[2019-04-07] MEDS: DILTIAZEM ORAL 60 MG TAB PO SCH ×3 (08:18→20:33)
[2019-04-07] MEDS: NICOTINE 14MG/24HR PATCH TRANSDERM SCH (08:19)
[2019-04-07] MEDS: HYDROmorphone 0.5 MG/0.5 ML SYRINGE IVP PRN ×2 (09:18→20:33)
[2019-04-07] MEDS: DOCUSATE 100 MG CAP PO PRN (11:35)
[2019-04-07 11:51] LABS: Glucose,Whole Blood 114 mg/dL (75-99)
[2019-04-07] MEDS: ALPRAZolam 0.25 MG TAB PO PRN ×2 (14:30→20:33)
--- NOTE | 2019-04-07 15:15 | PN ---
PROGRESS NOTE Mr. Walker is in atrial fibrillation, had some episodes of bradycardia. However, I am going to cut down the metoprolol to 50 mg b.i.d. hold the evening dose today. He is hemodynamically stable, resting well, has no chest pain or shortness of breath. Vitals are stable. S1-S2 heard normally. Irregular rhythm noted. Short systolic murmur noted. Lungs are clear. Abdomen and lower extremity exam unchanged. Plan is to decrease beta justyn, continue other medications and he can be moved to telemetry. MMODL / IJN: [id number] /
[2019-04-07 18:00] LABS: Glucose,Whole Blood 108 mg/dL (75-99)
--- NOTE | 2019-04-07 18:11 | XR ---
EXAMINATION TYPE: XR chest 1V portable DATE OF EXAM: 04/07/2019 COMPARISON: 04/02/2019 HISTORY: Short of breath TECHNIQUE: FINDINGS: Heart appears normal. Lungs are clear. There is no heart failure. There are chest leads. Co stophrenic angles are clear. Bony thorax appears intact. IMPRESSION: Normal chest. No change.
--- NOTE | 2019-04-07 19:59 | PN ---
PROGRESS NOTE DATE OF SERVICE: 04/07/2019 This 53-year-old gentleman who was admitted with vomiting and possible acute gastritis also had atrial fibrillation. The patient is being closely monitored. No chest pain. No palpitations. No fever. EXAM: Alert and oriented x3. Pulse is 89. Blood pressure 171/87, respiration 16, temperature normal, pulse ox 94% on room air skin: HEENT: Conjunctivae normal. Oral mucosa moist. NECK: No jugular venous distention. No lymph node enlargement. CARDIOVASCULAR: S1, S2. RESPIRATORY: Diminished breath sounds at the bases. No rhonchi, no crackles. ABDOMEN: Soft, nontender. LEGS: No swelling. NERVOUS SYSTEM: No focal deficits. LABS: CBC within normal limits, glucose 111. ASSESSMENT: 1. Vomiting, possibly acute gastritis, present on admission. Rule out peptic ulcer disease. 2. Atrial fibrillation with rapid ventricular rate, status post Cardizem drip. 3. Hypertension. 4. Hyperlipidemia. 5. Restless leg syndrome. 6. Depression. 7. Troponin 0.161 and 0.127, indeterminate etiology, rule out acute coronary syndrome. 8. Hypercalcemia. 9. History of coronary artery disease/stent. 10.History of myocardial infarction. 11.History of anxiety, depression. 12.History of nicotine dependence, continued, ongoing. RECOMMENDATIONS AND DISCUSSION: Recommend to continue current medication, continue symptomatic treatment. Otherwise closely follow with Cardiology. Guarded prognosis because of above mentioned multiple complex medical issues and further recommendations to follow. MMODL / IJN: [id number] /
[2019-04-07 20:29] LABS: Glucose,Whole Blood 97 mg/dL (75-99)
[2019-04-07] MEDS: ATORVASTATIN 20 MG TAB PO SCH (20:33)
[2019-04-07 21:17] VITALS: RESP 18
[2019-04-08] MEDS: HYDROmorphone 0.5 MG/0.5 ML SYRINGE IVP PRN ×4 (03:45→18:12)
[2019-04-08] MEDS: PANTOPRAZOLE 40 MG TABLET PO SCH (05:33)
[2019-04-08] MEDS: NICOTINE 14MG/24HR PATCH TRANSDERM SCH (05:33)
[2019-04-08] MEDS: DOCUSATE 100 MG CAP PO PRN ×2 (05:35→23:57)
[2019-04-08] MEDS: ALPRAZolam 0.25 MG TAB PO PRN ×3 (05:51→23:57)
[2019-04-08 06:18] LABS: Basophils % (A) 0 %; Eosinophils # (A) 0.1 k/uL (0-0.7); Eosinophils % (A) 1 %; HCT 43.6 % (39.0-53.0); HGB 14.4 gm/dL (13.0-17.5); Lymphocytes # (A) 1.3 k/uL (1.0-4.8); Lymphocytes % (A) 17 %; MCH 28.8 pg (25.0-35.0); MCV 87.4 fL (80.0-100.0); Mean Platelet Volume 6.8; Monocytes # (A) 0.5 k/uL (0-1.0); Monocytes % (A) 7 %; Neutrophils # (A) 5.6 k/uL (1.3-7.7); Neutrophils % (A) 73 %; Platelet Count 381 k/uL (150-450); RBC 4.99 m/uL (4.30-5.90); RDW 13.6 % (11.5-15.5); WBC 7.7 k/uL (3.8-10.6)
[2019-04-08 06:25] LABS: Glucose,Whole Blood 118 mg/dL (75-99)
[2019-04-08 07:20] LABS: African American GFR (CKD) >90 (>60 ml/min/1.73 sqM); Anion Gap 7 mmol/L; Blood Urea Nitrogen 11 mg/dL (9-20); Calcium 9.5 mg/dL (8.4-10.2); Carbon Dioxide 27 mmol/L (22-30); Chloride 104 mmol/L (98-107); Glucose 103 mg/dL (74-99); Non-African American GFR(CKD) >90 (>60 ml/min/1.73 sqM); Potassium 4.1 mmol/L (3.5-5.1); Sodium 138 mmol/L (137-145)
[2019-04-08] MEDS: APIXABAN 2.5 MG TABLET PO SCH ×2 (07:48→21:09)
[2019-04-08] MEDS: CLOPIDOGREL 75 MG TAB PO SCH (07:48)
[2019-04-08] MEDS: FUROSEMIDE 20 MG TAB PO SCH ×2 (07:48→18:06)
[2019-04-08] MEDS: DULoxetine HCL 60 MG CAPSULE.DR PO SCH ×2 (07:49→21:08)
[2019-04-08] MEDS: ASPIRIN 81 MG PO SCH (07:49)
[2019-04-08] MEDS: DILTIAZEM ORAL 60 MG TAB PO SCH ×3 (07:49→21:08)
[2019-04-08] MEDS ORDERED: METOPROLOL TARTRATE 50 MG TAB PO SCH (09:00)
[2019-04-08] MEDS: HYDROcodone/APAP 5-325MG 1 EACH TAB PO PRN ×3 (09:33→23:57)
[2019-04-08 12:06] LABS: Glucose,Whole Blood 95 mg/dL (75-99)
[2019-04-08 14:26] VITALS: BMI 24.5
[2019-04-08 15:08] LABS: Magnesium 1.9 mg/dL (1.6-2.3); Potassium 4.1 mmol/L (3.5-5.1)
--- NOTE | 2019-04-08 15:44 | P.PN ---
Subjective Progress Note Date: 04/08/19 this is a 53-year-old gentleman with history of ischemic heart disease who underwent stenting of the RCA on March 29, prior to that the patient was admitted to [facility] with chest pain and sepsis, had positive troponins. Cardiac catheterization revealed intermediate to severe disease in the RCA. Patient was experiencing nonsustained ventricular tachycardia and associated bradycardia and it was advised stent placement of the RCA which was performed on the . Subsequent to that patient presented to the hospital on April 02 mainly with abdominal discomfort, his EKG at that time showed A. fib with rapid ventricular response.on this occasion patient again returns to the hospital with symptoms of abdominal pain on the left side of his mid and lower abdomen, he was constipated and givens an enema, he is still having some mild diarrhea. Patient denies any chest discomfort.EKG on presentation here showed atrial fibrillation with a rapid ventricular response. is also noted on the monitor today to have episodes of nonsustained ventricular tachycardia.blood pressure 140/90 with a heart rate in the 80s.White blood cell count 7.7, hemoglobin 14.4, platelet count 381. Sodium 138, potassium 4.1, BUN 11, creatinine 0.6, magnesium 1.9.troponins on this admission 0.061, 0.052, 0.161, 0.127. Objective - Vital Signs Vital signs: Vital Signs Temp 98.0 F 04/08/19 11:30 Pulse 85 04/08/19 11:30 Resp 18 04/08/19 11:30 BP 141/97 04/08/19 11:30 Pulse Ox 96 04/08/19 11:30 Intake & Output 04/07/19 04/08/19 04/08/19 18:59 06:59 18:59 Intake Total 209 635 9549 Balance 979 220 1258 Weight 66.7 kg 66.7 kg Intake: Oral 099 038 9138 Other: Voiding Method Urinal Urinal # Voids 1 1 3 - Exam GENERAL: Well-appearing, well-nourished and in no acute distress. NECK: Supple without JVD or thyromegaly. LUNGS: Faint expiratory wheeze. No rales or rhonchi. Respiration equal and unlabored. HEART: Irregular rate and rhythm without murmurs, rubs or gallops. S1 and S2 heard. EXTREMITIES: Normal range of motion, no edema. No clubbing or cyanosis. Peripheral pulses intac - Labs CBC & Chem 7: 04/08/19 05:31 04/08/19 14:33 Labs: Abnormal Lab Results - Last 24 Hours (Table) 04/07/19 04/08/19 04/08/19 Range/Units 17:39 05:31 06:24 Glucose 103 H (74-99) mg/dL POC Glucose (mg/dL) 108 H 118 H (75-99) mg/dL Assessment and Plan Plan: assessment and plan #1 epigastric and left sided abdominal pain, secondary to constipation #2 mildly elevated troponins, patient recently underwent stent placement #3 nonsustained ventricular tachycardia #4 paroxysmal atrial fibrillation #5 hypertension #6 hyperlipidemia #7 depression Plan We will give the patient a dose of magnesium, increase his dose of beta justyn.we will also consult Dr. Campos, patient again is having nonsustained ventricular tachycardia in spite of recent stenting. Further recommendations to follow. DNP note has been reviewed, I agree with a documented findings and plan of care. Patient was seen and examined.
[2019-04-08 16:19] LABS: Glucose,Whole Blood 105 mg/dL (75-99)
[2019-04-08] MEDS: METOPROLOL TARTRATE 50 MG TAB PO SCH ×3 (18:04→21:09)
[2019-04-08] MEDS: MAGNESIUM SULFATE-D5W PMX 1 GM in DEXTROSE/WATER 1 100ML.BAG IVPB SCH ×2 (18:06→19:15)
[2019-04-08 20:38] LABS: Glucose,Whole Blood 140 mg/dL (75-99)
[2019-04-08] MEDS: ATORVASTATIN 20 MG TAB PO SCH (21:08)
[2019-04-08] MEDS: MORPHINE SULFATE 4 MG/ML SYRINGE IV PRN (21:09)
--- NOTE | 2019-04-09 00:13 | PN ---
PROGRESS NOTE DATE OF SERVICE: 04/08/2019 This 53-year-old gentleman admitted with vomiting and gastritis also was found to have atrial fibrillation with fast ventricular rate. No chest pain or palpitations. No fever. PHYSICAL EXAMINATION: Alert and oriented x3. Pulse is 77, blood pressure 130/60, respiration 18, temperature 98.3, pulse ox 97% on room air. HEENT: Conjunctivae normal. NECK: No jugular venous distention. CARDIOVASCULAR SYSTEM: S1, S2 muffled. RESPIRATORY SYSTEM: Breath sounds diminished at the bases. Bilateral scattered rhonchi and crackles. ABDOMEN: Soft. NERVOUS SYSTEM: No focal deficit. LABS: Accu-Cheks 105, 140. CBC within normal limits. Troponin 0.127. Amylase is 327. ASSESSMENT: 1. Vomiting, possibly acute gastritis, present on admission. Rule out peptic ulcer disease. 2. Atrial fibrillation, paroxysmal, with a rapid ventricular rate, status post Cardizem drip. 3. Hypertension. 4. Hyperlipidemia. 5. History of restless legs syndrome. 6. Depression. 7. Troponin 0.161 and 0.127, of undetermined etiology. Rule out acute coronary syndrome and type 2 vzy-ES-gzszxlo-elevation myocardial infarction. 8. Hypercalcemia. 9. History of coronary artery disease, stent. 10.History of myocardial infarction. 11.History of anxiety, depression. 12.History of nicotine dependence, continued ongoing. RECOMMENDATIONS AND DISCUSSION: I recommend to continue current medications, continue with the monitoring, symptomatic treatment. Closely follow with Cardiology. Prognosis is guarded because of above- mentioned medical reasons. Guarded prognosis. Further recommendations to follow. MMODL / IJN: [id number] /
[2019-04-09] MEDS: MORPHINE SULFATE 4 MG/ML SYRINGE IV PRN ×2 (04:50→11:23)
[2019-04-09] MEDS: PANTOPRAZOLE 40 MG TABLET PO SCH (06:08)
[2019-04-09 06:22] LABS: Glucose,Whole Blood 89 mg/dL (75-99)
[2019-04-09] MEDS: HYDROcodone/APAP 5-325MG 1 EACH TAB PO PRN ×2 (07:07→12:23)
[2019-04-09 07:38] LABS: Basophils % (A) 1 %; Eosinophils # (A) 0.1 k/uL (0-0.7); Eosinophils % (A) 2 %; HCT 43.9 % (39.0-53.0); HGB 14.6 gm/dL (13.0-17.5); Lymphocytes # (A) 1.7 k/uL (1.0-4.8); Lymphocytes % (A) 31 %; MCH 29.1 pg (25.0-35.0); MCHC 33.4 g/dL (31.0-37.0); MCV 87.2 fL (80.0-100.0); Monocytes # (A) 0.4 k/uL (0-1.0); Monocytes % (A) 8 %; Neutrophils % (A) 56 %; Platelet Count 369 k/uL (150-450); RBC 5.03 m/uL (4.30-5.90); RDW 13.7 % (11.5-15.5); WBC 5.4 k/uL (3.8-10.6)
[2019-04-09 07:42] LABS: African American GFR (CKD) >90 (>60 ml/min/1.73 sqM); Anion Gap 7 mmol/L; Blood Urea Nitrogen 11 mg/dL (9-20); Calcium 9.2 mg/dL (8.4-10.2); Carbon Dioxide 28 mmol/L (22-30); Chloride 105 mmol/L (98-107); Glucose 79 mg/dL (74-99); Non-African American GFR(CKD) >90 (>60 ml/min/1.73 sqM); Potassium 4.2 mmol/L (3.5-5.1); Sodium 140 mmol/L (137-145)
[2019-04-09] MEDS: DILTIAZEM ORAL 60 MG TAB PO SCH (09:05)
[2019-04-09] MEDS: NICOTINE 14MG/24HR PATCH TRANSDERM SCH (09:05)
[2019-04-09] MEDS: FUROSEMIDE 20 MG TAB PO SCH (09:05)
[2019-04-09] MEDS: METOPROLOL TARTRATE 50 MG TAB PO SCH (09:06)
[2019-04-09] MEDS: DULoxetine HCL 60 MG CAPSULE.DR PO SCH (09:06)
[2019-04-09] MEDS: HYDROmorphone 0.5 MG/0.5 ML SYRINGE IVP PRN (09:06)
[2019-04-09] MEDS: CLOPIDOGREL 75 MG TAB PO SCH (09:06)
[2019-04-09] MEDS: ALPRAZolam 0.25 MG TAB PO PRN (09:06)
[2019-04-09] MEDS: ASPIRIN 81 MG PO SCH (09:06)
[2019-04-09] MEDS: APIXABAN 2.5 MG TABLET PO SCH (09:06)
[2019-04-09 10:50] LABS: Glucose,Whole Blood 117 mg/dL (75-99)
[2019-04-09 11:08] VITALS: BP 147/102; PULSE 62; TEMP 97.9
--- NOTE | 2019-04-09 14:36 | P.PN ---
Subjective Progress Note Date: 04/09/19 this is a 53-year-old gentleman with history of ischemic heart disease who underwent stenting of the RCA on March 29, prior to that the patient was admitted to [facility] with chest pain and sepsis, had positive troponins. Cardiac catheterization revealed intermediate to severe disease in the RCA. Patient was experiencing nonsustained ventricular tachycardia and associated bradycardia and it was advised stent placement of the RCA which was performed on the . Subsequent to that patient presented to the hospital on April 02 mainly with abdominal discomfort, his EKG at that time showed A. fib with rapid ventricular response.on this occasion patient again returns to the hospital with symptoms of abdominal pain on the left side of his mid and lower abdomen, he was constipated and givens an enema, he is still having some mild diarrhea. Patient denies any chest discomfort.EKG on presentation here showed atrial fibrillation with a rapid ventricular response. is also noted on the monitor today to have episodes of nonsustained ventricular tachycardia.blood pressure 140/90 with a heart rate in the 80s.White blood cell count 7.7, hemoglobin 14.4, platelet count 381. Sodium 138, potassium 4.1, BUN 11, creatinine 0.6, magnesium 1.9.troponins on this admission 0.061, 0.052, 0.161, 0.127. 04/09/2019 Patient seen and examined this morning, doing well overall, hemodynamically stable. Denies any chest pain, breathing is stable. No further episodes of nonsustained ventricular tachycardia were noted on the monitor. Objective - Vital Signs Vital signs: Vital Signs Temp 97.9 F 04/09/19 11:07 Pulse 62 04/09/19 11:07 Resp 18 04/09/19 11:07 BP 147/102 04/09/19 11:07 Pulse Ox 99 04/09/19 11:07 Intake & Output 04/08/19 04/09/19 04/09/19 18:59 06:59 18:59 Intake Total 1680 237 240 Balance 1680 237 240 Weight 66.7 kg 67 kg Intake: Oral 1680 237 240 Other: # Voids 3 1 - Exam GENERAL: Well-appearing, well-nourished and in no acute distress. NECK: Supple without JVD or thyromegaly. LUNGS: Faint expiratory wheeze. No rales or rhonchi. Respiration equal and unlabored. HEART: Irregular rate and rhythm without murmurs, rubs or gallops. S1 and S2 heard. EXTREMITIES: Normal range of motion, no edema. No clubbing or cyanosis. Peripheral pulses intac - Labs CBC & Chem 7: 04/09/19 05:31 04/09/19 05:31 Labs: Abnormal Lab Results - Last 24 Hours (Table) 04/08/19 04/08/19 04/09/19 Range/Units 16:17 20:37 10:48 POC Glucose (mg/dL) 105 H 140 H 117 H (75-99) mg/dL Assessment and Plan Plan: assessment and plan #1 epigastric and left sided abdominal pain, secondary to constipation #2 mildly elevated troponins, patient recently underwent stent placement #3 nonsustained ventricular tachycardia #4 paroxysmal atrial fibrillation #5 hypertension #6 hyperlipidemia #7 depression Plan patient has had no further episodes of ventricular tachycardia, from our perspective he may be able to be discharged home today. We will make him a follow-up appointment to see Dr. Calhoun in the office, Dr. Campos we'll also see him in consultation on an outpatient basis. DNP note has been reviewed, I agree with a documented findings and plan of care. Patient was seen and examined.
--- NOTE | 2019-04-10 01:12 | DS ---
DISCHARGE SUMMARY DATE OF SERVICE: 04/09/2019 FINAL DIAGNOSES: 1. Vomiting, possibly acute gastritis, present on admission improved. 2. Atrial fibrillation paroxysmal with rapid ventricular rate, status post Cardizem drip. 3. Hypertension. 4. Hyperlipidemia. 5. History of restless legs syndrome. 6. History of depression. 7. Troponin 0.016 and 0.017, undetermined etiology. Rule out coronary syndrome with type 2 nmo-ZU-[id number]-elevation myocardial infarction. 8. Hypercalcemia. 9. History of coronary artery disease/stent. 10.History of myocardial infarction. 11.History of anxiety, depression. 12.History of nicotine dependence, continued ongoing. DISCHARGE DISPOSITION: Patient being discharged in stable condition with guarded prognosis. The patient discharge cleared by Cardiology. HISTORY OF PRESENT ILLNESS: This 53-year-old gentleman with a past medical history of multiple medical problems admitted with history of cardiac arrhythmia and multiple other medical issues. Patient treated symptomatically. Patient improved significantly. Cardiology saw the patient. Medication adjusted. Importance of compliance also stressed with the patient. On exam, vitals signs are stable. Cardio system: S1, S2. Abdomen soft. Nervous system: No focal deficits. Respirations clear auscultation. DISCHARGE ADVICE AND MEDICATIONS: 1. Diet is cardiac diet. 2. Activity limited until followup. 3. Follow up with Dr. Humaira Espinal in 1-2 days. 4. Follow up with Cardiology as recommended. DISCHARGE MEDICATIONS: 1. Diclofenac 50 mg p.o. t.i.d. 2. Cymbalta 30 mg p.o. b.i.d. 3. Lasix 20 mg p.o. b.i.d. 4. Lipitor 20 mg q.h.s. 5. tizanidine 4 mg t.i.d. p.r.n. 6. Aspirin 81 mg. 7. Cardizem 60 mg p.o. t.i.d. 8. Eliquis 2.5 mg p.o. b.i.d. 9. Lopressor 100 mg p.o. b.i.d. 10.Nitrostat p.r.n. 11.[place] 5 mg q.4 p.r.n. 12.Pepcid 20 mg p.o. daily. 13.Plavix 75 mg p.o. daily. 14.Zofran p.r.n. MMODL / IJN: [id number] / MTDJos
== END 2019-04-09 13:35 | disposition home or self-care (01) | DRG 310 ==
LOC: EC 14:27 → 3SCARD 20:09 → 2SICU 22:56 → 3SCARD 04-07 12:07
PROVIDERS: ADMIT Hospitalist; ATTEND Hospitalist
DX: I48.0 Paroxysmal atrial fibrillation (principal); A08.4 Viral intestinal infection, unspecified; E11.9 Type 2 diabetes mellitus without complications; E78.5 Hyperlipidemia, unspecified; E83.52 Hypercalcemia; F17.200 Nicotine dependence, unspecified, uncomplicated; F32.9 Major depressive disorder, single episode, unspecified; F41.9 Anxiety disorder, unspecified; G25.81 Restless legs syndrome; I10 Essential (primary) hypertension; I25.10 Atherosclerotic heart disease of native coronary artery without angina pectoris; I25.2 Old myocardial infarction; I47.2 Ventricular tachycardia; K21.9 Gastro-esophageal reflux disease without esophagitis; K27.9 Peptic ulcer, site unspecified, unspecified as acute or chronic, without hemorrhage or perforation; K29.70 Gastritis, unspecified, without bleeding; K59.00 Constipation, unspecified; Z79.01 Long term (current) use of anticoagulants; Z79.02 Long term (current) use of antithrombotics/antiplatelets; Z79.82 Long term (current) use of aspirin; Z79.899 Other long term (current) drug therapy; Z82.49 Family history of ischemic heart disease and other diseases of the circulatory system; Z87.11 Personal history of peptic ulcer disease; Z95.5 Presence of coronary angioplasty implant and graft; R79.89 Other specified abnormal findings of blood chemistry
CPT/HCPCS: 36415; 71045; 74018; 76700; 80048; 80053; 81003; 82150; 83690; 83735; 84132; 84484; 85025; 93005; 96361; 96365; 96366; 96368; 96375; 99285

== ENCOUNTER 2020-10-30 11:00 | Observation (INO) | payer MEDICARE, OTHER ==
[2020-10-30] MEDS ORDERED: MORPHINE SULFATE 4 MG/ML SYRINGE IV STA (11:19)
[2020-10-30] MEDS ORDERED: SODIUM CHLORIDE 0.9% 500 ML 500 ML IV STA (11:19)
[2020-10-30] MEDS ORDERED: ONDANSETRON 4 MG/2 ML VIAL IVP STA (11:19)
[2020-10-30] MEDS ORDERED: PANTOPRAZOLE 40 MG/10 ML VIAL IVP STA (11:19)
--- NOTE | 2020-10-30 11:30 | ED ---
Abdominal Pain HPI - General Source: EMS Mode of arrival: EMS Limitations: no limitations <Deena Gamez - Last Filed: 10/30/20 15:26> <Remington Conn - Last Filed: 10/31/20 00:39> - General Chief Complaint: Abdominal Pain Stated Complaint: abd pain Time Seen by Provider: 10/30/20 11:09 - History of Present Illness Initial Comments: Patient is a 54-year-old male, with history of A. fib, hypertension, diabetes, presenting to the emergency department via EMS with complaints of abdominal pain, nausea and vomiting as well as diarrhea that started last night. Been in the hospital recently at [facility] for similar issue. He states he was feeling better and they let him go home. He saw Dr. Hensley yesterday who stated he wanted to adjust his medications, he has not picked up a new pres cription. He denies any recent antibiotics. He states he did take his medications this morning, but threw them up. He states his pain is all around his abdomen, no specific area. He denies any chest pain or shortness of breath. He denies any fevers or chills. Patient also mentioned that he is having suicidal thoughts but no definitive plan. He states he's been having these thoughts for a couple weeks. He is under a lot of stress. He denies any homicidal thoughts. Denies any alcohol or drug use. He has no other complaints at this time. Patient was hypertensive upon arrival, rest of vitals within normal limits. (Deena Gamez) - Related Data Home Medications Medication Instructions Recorded Confirmed HYDROcodone/APAP 7.5-325MG [[place] 1 tab PO TID PRN 10/30/20 10/30/20 7.5-325] Metoprolol Succinate [Toprol XL] 50 mg PO DAILY 10/30/20 10/30/20 Pregabalin [Lyrica] 100 mg PO TID 10/30/20 10/30/20 dilTIAZem HCL 30 mg PO BID 10/30/20 10/30/20 lisinopriL 10 mg PO DAILY 10/30/20 10/30/20 Allergies Allergy/AdvReac Type Severity Reaction Status Date / Time No Known Allergies Allergy Verified 10/30/20 13:22 Review of Systems ROS Other: All systems not noted in ROS Statement are negative. <VeraDeena Elvira - Last Filed: 10/30/20 15:26> ROS Other: All systems not noted in ROS Statement are negative. <FabienRemington - Last Filed: 10/31/20 00:39> ROS Statement: Those systems with pertinent positive or pertinent negative responses have been documented in the HPI. Past Medical History Past Medical History: Atrial Fibrillation, Coronary Artery Disease (CAD), Chest Pain / Angina, Diabetes Mellitus, GERD/Reflux, Hyperlipidemia, Hypertension, Myocardial Infarction ([place]) Additional Past Medical History / Comment(s): restlesss leg syndrome, sleep study pt states "the results were really really bad." Last Myocardial Infarction Date:: 02/26/2019 History of Any Multi-Drug Resistant Organisms: None Reported Past Surgical History: Heart Catheterization, Heart Catheterization With Stent, Orthopedic Surgery Additional Past Surgical History / Comment(s): Pt states "I have had a nose job." Past Anesthesia/Blood Transfusion Reactions: No Reported Reaction Date of Last Stent Placement:: 03/29/19 Past Psychological History: Anxiety, Depression Past Alcohol Use History: None Reported Past Drug Use History: None Reported - Past Family History Father Family Medical History: AFIB, Coronary Artery Disease (CAD) Additional Family Medical History / Comment(s): pacemaker, blood thinners <VeraDeena L - Last Filed: 10/30/20 15:26> General Exam Limitations: no limitations <Deena Gamez - Last Filed: 10/30/20 15:26> - General Exam Comments Initial Comments: GENERAL: Patient is well-developed and well-nourished. Patient is nontoxic and in moderate distress. HEAD: Atraumatic, normocephalic. EYES: Pupils equal round and reactive to light, extraocular movements intact, sclera anicteric, conjunctiva are normal. Eyelids were unremarkable. ENT: TMs normal, nares patent, oropharynx clear without exudates. Moist mucous membranes. NECK: Normal range of motion, supple without lymphadenopathy or JVD. LUNGS: Unlabored respirations. Breath sounds clear to auscultation bilaterally and equal. No wheezes rales or rhonchi. HEART: Tachycardic, irregular rate and rhythm without murmurs, rubs or gallops. ABDOMEN: Soft, generalized abdominal tenderness, no specific area but quite tender everywhere, normoactive bowel sounds. No guarding, no rebound. No masses appreciated. : Deferred MUSCULOSKELETAL: Normal extremities with adequate strength and normal range of motion, no pitting or edema. No clubbing or cyanosis. NEUROLOGICAL: Patient is alert and oriented x 3. Motor and sensory are also intact. Cranial nerves II through XII grossly intact. Symmetrical smile. Normal speech, normal gait. PSYCH: Normal mood, normal affect. SKIN: Warm, Dry, normal turgor, no rashes or lesions noted. (Deena Gamez) Course Vital Signs 10/30/20 10/30/20 10/30/20 11:07 13:36 14:36 Temperature 97.6 F Pulse Rate 73 113 H 135 H Respiratory 16 16 18 Rate Blood Pressure 158/118 97/50 118/95 O2 Sat by Pulse 99 96 97 Oximetry 10/30/20 10/30/20 10/30/20 15:54 18:02 21:12 Temperature Pulse Rate 99 79 104 H Respiratory 16 16 17 Rate Blood Pressure 104/82 104/76 114/80 O2 Sat by Pulse 97 96 99 Oximetry 10/30/20 23:41 Temperature Pulse Rate 96 Respiratory 20 Rate Blood Pressure 111/100 O2 Sat by Pulse 99 Oximetry Medical Decision Making - Lab Data Result diagrams: 10/30/20 11:24 10/30/20 11:24 <Deena Gamez - Last Filed: 10/30/20 15:26> - Lab Data Result diagrams: 10/30/20 11:24 10/30/20 11:24 <Remington Conn - Last Filed: 10/31/20 00:39> - Medical Decision Making Patient is a 54-year-old male with history of A. fib presenting for generalized abdominal discomfort, nausea and vomiting over the past few days. His initial vital signs were hypertensive otherwise within normal limits. EKG shows A. fib with RVR with a rate of 103. Labs are all within normal limits including a negative troponin. Patient's heart rate has been monitored throughout his ER stay and has been very irregular, with rates in the 140s to 150s and then dropped down into the low 100s. This was going on throughout his entire stay. He did have a negative CT of the abdomen. Patient will be admitted for A. fib with RVR, consult cardiology. He will also consult with psychiatry given his suicidal ideation. Dr. Hensley did accept the patient. Case discussed with Dr. Conn. (Deena Gamez) As the patient is not persistantly in RVR, the patient does not require rate control at this time as he is mostly in the low 100's or less for HR. (Remington Conn) - Lab Data Lab Results 10/30/20 10/30/20 10/30/20 Range/Units 11:24 11:24 11:24 WBC 9.3 (3.8-10.6) k/uL RBC 5.06 (4.30-5.90) m/uL Hgb 15.1 (13.0-17.5) gm/dL Hct 46.1 (39.0-53.0) % MCV 91.2 (80.0-100.0) fL MCH 29.9 (25.0-35.0) pg MCHC 32.8 (31.0-37.0) g/dL RDW 14.0 (11.5-15.5) % Plt Count 317 (150-450) k/uL MPV 7.4 Neutrophils % 75 % Lymphocytes % 19 % Monocytes % 4 % Eosinophils % 1 % Basophils % 0 % Neutrophils # 6.9 (1.3-7.7) k/uL Lymphocytes # 1.8 (1.0-4.8) k/uL Monocytes # 0.3 (0-1.0) k/uL Eosinophils # 0.1 (0-0.7) k/uL Basophils # 0.0 (0-0.2) k/uL PT 10.8 (9.0-12.0) sec INR 1.0 (<1.2) APTT 25.1 (22.0-30.0) sec Sodium 137 (137-145) mmol/L Potassium 4.9 (3.5-5.1) mmol/L Chloride 105 (98-107) mmol/L Carbon Dioxide 23 (22-30) mmol/L Anion Gap 9 mmol/L BUN 24 H (9-20) mg/dL Creatinine 0.87 (0.66-1.25) mg/dL Est GFR (CKD-EPI)AfAm >90 (>60 ml/min/1.73 sqM) Est GFR (CKD-EPI)NonAf >90 (>60 ml/min/1.73 sqM) Glucose 141 H (74-99) mg/dL Plasma Lactic Acid Lawrence (0.7-2.0) mmol/L Calcium 9.6 (8.4-10.2) mg/dL Total Bilirubin 0.5 (0.2-1.3) mg/dL AST 27 (17-59) U/L ALT 23 (4-49) U/L Alkaline Phosphatase 93 (38-126) U/L Troponin I (0.000-0.034) ng/mL Total Protein 6.5 (6.3-8.2) g/dL Albumin 4.3 (3.5-5.0) g/dL Amylase 55 (30-110) U/L Lipase 56 (23-300) U/L 10/30/20 10/30/20 Range/Units 11:24 11:24 WBC (3.8-10.6) k/uL RBC (4.30-5.90) m/uL Hgb (13.0-17.5) gm/dL Hct (39.0-53.0) % MCV (80.0-100.0) fL MCH (25.0-35.0) pg MCHC (31.0-37.0) g/dL RDW (11.5-15.5) % Plt Count (150-450) k/uL MPV Neutrophils % % Lymphocytes % % Monocytes % % Eosinophils % % Basophils % % Neutrophils # (1.3-7.7) k/uL Lymphocytes # (1.0-4.8) k/uL Monocytes # (0-1.0) k/uL Eosinophils # (0-0.7) k/uL Basophils # (0-0.2) k/uL PT (9.0-12.0) sec INR (<1.2) APTT (22.0-30.0) sec Sodium (137-145) mmol/L Potassium (3.5-5.1) mmol/L Chloride (98-107) mmol/L Carbon Dioxide (22-30) mmol/L Anion Gap mmol/L BUN (9-20) mg/dL Creatinine (0.66-1.25) mg/dL Est GFR (CKD-EPI)AfAm (>60 ml/min/1.73 sqM) Est GFR (CKD-EPI)NonAf (>60 ml/min/1.73 sqM) Glucose (74-99) mg/dL Plasma Lactic Acid Lawrence 1.8 (0.7-2.0) mmol/L Calcium (8.4-10.2) mg/dL Total Bilirubin (0.2-1.3) mg/dL AST (17-59) U/L ALT (4-49) U/L Alkaline Phosphatase (38-126) U/L Troponin I <0.012 (0.000-0.034) ng/mL Total Protein (6.3-8.2) g/dL Albumin (3.5-5.0) g/dL Amylase (30-110) U/L Lipase (23-300) U/L - EKG Data EKG Comments: A. fib with RVR, left axis deviation, inferior infarct age undetermined, similar to previous on 04/04/2019. Ventricular rate 103, QRS 82, QT 300. (Deena Gamez) Disposition Decision Date: 10/30/20 Decision Time: 14:43 <Deena Gamez - Last Filed: 10/30/20 15:26> <Remington Conn - Last Filed: 10/31/20 00:39> Clinical Impression: Atrial fibrillation with RVR, Suicidal ideation, Nausea & vomiting Disposition: ADMITTED IP TO THIS HOSP Condition: Stable
[2020-10-30 11:46] LABS: Basophils % (A) 0 %; Eosinophils # (A) 0.1 k/uL (0-0.7); Eosinophils % (A) 1 %; HCT 46.1 % (39.0-53.0); HGB 15.1 gm/dL (13.0-17.5); Lymphocytes # (A) 1.8 k/uL (1.0-4.8); Lymphocytes % (A) 19 %; MCH 29.9 pg (25.0-35.0); MCHC 32.8 g/dL (31.0-37.0); MCV 91.2 fL (80.0-100.0); Mean Platelet Volume 7.4; Monocytes # (A) 0.3 k/uL (0-1.0); Monocytes % (A) 4 %; Neutrophils # (A) 6.9 k/uL (1.3-7.7); Neutrophils % (A) 75 %; Platelet Count 317 k/uL (150-450); RBC 5.06 m/uL (4.30-5.90); WBC 9.3 k/uL (3.8-10.6)
[2020-10-30 11:53] LABS: ALT 23 U/L (4-49); AST 27 U/L (17-59); African American GFR (CKD) >90 (>60 ml/min/1.73 sqM); Albumin 4.3 g/dL (3.5-5.0); Alkaline Phosphatase 93 U/L (38-126); Amylase 55 U/L (30-110); Anion Gap 9 mmol/L; Blood Urea Nitrogen 24 mg/dL (9-20); Calcium 9.6 mg/dL (8.4-10.2); Carbon Dioxide 23 mmol/L (22-30); Chloride 105 mmol/L (98-107); Glucose 141 mg/dL (74-99); Lipase 56 U/L (23-300); Non-African American GFR(CKD) >90 (>60 ml/min/1.73 sqM); Potassium 4.9 mmol/L (3.5-5.1); Sodium 137 mmol/L (137-145); Total Bilirubin 0.5 mg/dL (0.2-1.3); Total Protein 6.5 g/dL (6.3-8.2)
[2020-10-30 12:17] LABS: Partial Thromboplastin Time 25.1 sec (22.0-30.0); Prothrombin Time 10.8 sec (9.0-12.0)
--- NOTE | 2020-10-30 12:42 | CT ---
EXAMINATION TYPE: CT abdomen pelvis w con DATE OF EXAM: 10/30/2020 COMPARISON: None INDICATION: Stomach pain DLP: 971.3 mGycm, Automated exposure control for dose reduction was used. CONTRAST: 100 mL of Isovue 300. Study performed without Oral Contrast TECHNIQUE: Axial images were obtained from above the diaphragm to the pubic rami in the axial plane a t 5 mm thick sections. Reconstructed images are reviewed on the computer in the coronal plane. FINDINGS: Limited CT sections are obtained the lung bases. The lung bases are clear. Hiatal hernia containing fluid is evident. CT ABDOMEN: Liver: Normal Spleen: Normal Pancreas: Normal Adrenal glands: The adrenal glands are normal. Gallbladder: Normal Kidneys: No masses are evident. No hydronephrosis is present. No cysts are present. Delayed images were obtained through the kidneys, which remain unremarkable. Aorta: Vascular calcification is within the aorta. Inferior vena cava: Normal. CT PELVIS: Diverticular changes are within the sigmoid colon and mild are within the descending colon region.. T here may be some mild wall thickening of the proximal ascending colon. Correlate for colitis. No sign ificant inflammatory changes adjacent to the colon is evident. There are loops of bowel which are inc ompletely distended or lack oral contrast limiting their evaluation. Appendix: Normal as visualized. Urinary bladder: Normal. Genitourinary structures: Prostate is normal Osseous structures: No suspicious lytic or sclerotic lesions are evident. IMPRESSIONS: 1. Mild wall thickening of the proximal ascending colon. Correlate for mild colitis. 2. Diverticulosis without acute diverticulitis within the descending colon sigmoid colon. 3. Hiatal hernia
[2020-10-30] MEDS ORDERED: ONDANSETRON 4 MG/2 ML VIAL IVP PRN (14:37)
[2020-10-30] MEDS ORDERED: NALOXONE 0.4 MG/ML 1 ML VIAL IV PRN (14:37)
[2020-10-30] MEDS ORDERED: ACETAMINOPHEN TAB 325 MG TAB PO PRN (14:37)
[2020-10-30 19:19] LABS: Appearance,Urine Clear (Clear); Bilirubin,Urine Negative (Negative); Blood,Urine Negative (Negative); Color,Urine Yellow; Glucose,Urine (UA) Negative (Negative); Ketones,Urine 1+ (Negative); Leukocyte Esterase,Urine Negative (Negative); Nitrite,Urine Negative (Negative); Protein,Urine Negative (Negative); Urobilinogen,Urine <2.0 mg/dL (<2.0)
[2020-10-30] MEDS: HYDROcodone/APAP 7.5-325MG 1 EACH TAB PO PRN (21:25)
[2020-10-30] MEDS: NICOTINE 14MG/24HR PATCH TRANSDERM SCH ×2 (23:34→23:40)
[2020-10-30] MEDS: PREGABALIN 100 MG CAP PO SCH ×2 (23:34→23:40)
[2020-10-31] MEDS: HYDROcodone/APAP 7.5-325MG 1 EACH TAB PO PRN ×4 (03:29→22:23)
[2020-10-31] MEDS: DILTIAZEM ORAL 30 MG TAB PO SCH ×3 (08:54→20:40)
[2020-10-31] MEDS: APIXABAN 5 MG TAB PO SCH ×2 (08:55→20:40)
[2020-10-31] MEDS: ATORVASTATIN 40 MG TAB PO SCH (08:55)
[2020-10-31] MEDS: PREGABALIN 100 MG CAP PO SCH ×4 (08:55→20:40)
[2020-10-31] MEDS ORDERED: METOPROLOL SUCCINATE (ER) 100 MG TAB.ER.24H PO SCH (09:00)
--- NOTE | 2020-10-31 09:45 | CONS ---
CONSULTATION ATTENDING PHYSICIAN: Dr. Hensley. HISTORY OF PRESENT ILLNESS: Mr. Walker is a 54-year-old male who presented to the emergency room with abdominal discomfort, nausea and vomiting. He has a history of atrial fibrillation, has been followed by Dr. Biggs in the past. Apparently, he was in [facility] recently and was discharged. A full detail of that workup is not available to me at this time. He has the atrial fibrillation for a long time. The patient has expressed some suicidal ideas in the emergency room. He was quite upset when I saw him and was not too cooperative. He has a history of coronary artery disease and underwent cardiac catheterization and percutaneous revascularization by Dr. Biggs in 2019 and at that time had a stenting of the right coronary artery by Dr. Biggs in March 2019. He had an echocardiogram that revealed a preserved left ventricular size and systolic function. He denies any chest pain. He does not have the palpitation. He is taking anticoagulation. According to him, he has no syncope. No clear PND nor orthopnea. In the emergency room, he was in atrial fibrillation with episode of rapid ventricular response. The patient has a history of smoking, as well history of hypertension, he is nondiabetic. MEDICATION: The full list of his medications is unclear, but according to him, he is on Eliquis. He is also on lisinopril, metoprolol succinate, and probably diltiazem. REVIEW OF SYSTEMS: RESPIRATORY SYSTEM: He has dyspnea on exertion. No recent wheezing or cough. GI SYSTEM: He has abdominal pain and nausea. SYSTEM: No dysuria or hematuria. NERVOUS SYSTEM: No history of seizure. PHYSICAL EXAMINATION: GENERAL: He is a 54-year-old male, no apparent distress. VITAL SIGNS: Blood pressure running in the 120s to 140s with a heart rate in the 80s to 100. HEAD: Normocephalic. Eyes sclerae anicteric. Neck good carotid upstroke, no bruit. LUNGS: Clear to auscultation. Heart irregularly irregularly, S1-S2, no S3 with systolic murmur. No diastolic murmur, no rub. ABDOMEN: Soft and nontender. EXTREMITIES: No edema. LAB DATA: Lab data revealed troponin less than 0.012. BUN creatinine 24 and 0.87, potassium 4.9, hemoglobin 15.1. IMPRESSION: 1. Abdominal discomfort, workup in progress. 2. Persistent chronic atrial fibrillation, anticoagulated. 3. History of coronary artery disease status post percutaneous revascularization of his right coronary artery [place] [address] Biggs. 4. History of chronic tobacco use. 5. History of hypertension. RECOMMENDATION: From the cardiac standpoint, I will try to obtain the workup that was done at [facility] recently. I will re-initiate his anticoagulation as well as add a statin to his regimen. He will undergo workup regarding a GI status and depending on his progress further recommendations will be made. Thank you for this consult. We will follow with you. [id number] / IJN: [id number] /
[2020-10-31 12:40] LABS: Chol/HDL Ratio 7.93
[2020-10-31] MEDS: LORazepam 0.5 MG TAB PO PRN (14:59)
[2020-10-31] MEDS ORDERED: lisinopriL 20 MG TAB PO STA (17:46)
--- NOTE | 2020-10-31 18:32 | PN ---
PROGRESS NOTE DATE OF SERVICE: 10/31/2020 CHIEF COMPLAINT: Abdominal pain and atrial fibrillation. HISTORY OF PRESENT ILLNESS: This gentleman is doing well. He has had no further pain. He has had no further vomiting. It seems stable. Vital signs are normal. PHYSICAL EXAMINATION: Chest is clear. Cardiac exam is normal. Abdomen is soft, nontender without visceromegaly or masses. Bowel sounds are present. Extremities normal. Neurologically, he is intact. IMPRESSION: 1. Abdominal pain with nausea, vomiting, diarrhea. 2. Atrial fibrillation. 3. Depression. PLAN: Await psych evaluation. MMODL / IJN: [id number] /
--- NOTE | 2020-10-31 18:42 | HP ---
HISTORY AND PHYSICAL CHIEF COMPLAINT: Crampy abdominal pain with nausea, vomiting and diarrhea and tachycardia. HISTORY OF PRESENT ILLNESS: This is another admission for this 54-year-old white male. He was just in [facility] for nausea and vomiting. He was stabilized and discharged. He did well. He then called the ambulance and came into the emergency room here. CT scan was normal. Vital signs are normal. In the emergency room, he is also saying that he was having suicidal thoughts. He has chronic atrial fibrillation. REVIEW OF SYSTEMS: He denies any headaches, focal neurologic deficits, chest pain, hematemesis, melena, hematochezia, jaundice, etc. Review of systems reveals he has also had no chest pain, orthopnea, syncope, melena, hematochezia, renal failure, hematuria, dysuria, frequency, diabetes, etc. Past medical history, family history and personal and social histories are unremarkable. ALLERGIES: He is not allergic to any medication. MEDICATIONS: He only takes Vicodin 7.5, lisinopril 10 mg once a day, Flexeril 5 mg t.i.d., diltiazem 30 mg b.i.d., metoprolol succinate 50 mg once a day, and pregabalin 100 mg t.i.d. PHYSICAL EXAM: Blood pressure 170/100 with a pulse 63 rest and irregularly irregular. Respirations were 20 and he is afebrile. In general, he appeared to be well developed, well nourished, in no acute distress. Skin color is normal. Skin is warm, dry. Lymph nodes were not enlarged. Head, ears, eyes, nose, mouth and throat were normal. Neck veins not distended. Thyroid not enlarged. Chest is clear. Cardiac exam is normal and the abdomen is soft and nontender. Extremities were normal and neurologically he is intact. He is admitted to the hospital. DIAGNOSES: 1. Abdominal pain with nausea, vomiting, and diarrhea. 2. Chronic atrial fibrillation. 3. Suicidal personality. PLAN: 1. Bedrest. 2. IV fluids. 3. Follow abdominal findings. 4. Psych consult. MMODL / IJN: [id number] /
[2020-10-31] MEDS: FAMOTIDINE 20 MG TAB PO SCH (18:43)
[2020-10-31] MEDS: CYCLOBENZAPRINE 5 MG TAB PO SCH (20:40)
[2020-10-31] MEDS ORDERED: PREGABALIN 100 MG CAP PO SCH (22:00)
[2020-10-31] MEDS ORDERED: NICOTINE 14MG/24HR PATCH TRANSDERM SCH (23:00)
[2020-11-01] MEDS: LORazepam 0.5 MG TAB PO PRN ×2 (03:14→10:40)
[2020-11-01] MEDS: HYDROcodone/APAP 7.5-325MG 1 EACH TAB PO PRN ×2 (05:18→10:40)
[2020-11-01 07:58] LABS: African American GFR (CKD) >90 (>60 ml/min/1.73 sqM); Anion Gap 8 mmol/L; Blood Urea Nitrogen 12 mg/dL (9-20); Calcium 9.6 mg/dL (8.4-10.2); Carbon Dioxide 31 mmol/L (22-30); Chloride 101 mmol/L (98-107); Glucose 94 mg/dL (74-99); Non-African American GFR(CKD) >90 (>60 ml/min/1.73 sqM); Potassium 4.3 mmol/L (3.5-5.1); Sodium 140 mmol/L (137-145)
[2020-11-01 08:28] VITALS: BP 124/94; PULSE 67; RESP 20; TEMP 98.2
[2020-11-01] MEDS: PREGABALIN 100 MG CAP PO SCH (08:35)
[2020-11-01] MEDS: FAMOTIDINE 20 MG TAB PO SCH (08:35)
[2020-11-01] MEDS: ATORVASTATIN 40 MG TAB PO SCH (08:35)
[2020-11-01] MEDS: DILTIAZEM ORAL 30 MG TAB PO SCH (08:36)
[2020-11-01] MEDS: APIXABAN 5 MG TAB PO SCH (08:36)
[2020-11-01] MEDS: CYCLOBENZAPRINE 5 MG TAB PO SCH (08:36)
[2020-11-01] MEDS ORDERED: METOPROLOL SUCCINATE (ER) 50 MG TAB.ER.24H PO SCH (09:00)
--- NOTE | 2020-11-03 19:11 | DS ---
DISCHARGE SUMMARY CHIEF COMPLAINT: Abdominal pain, atrial fibrillation and depression. HISTORY OF PRESENT ILLNESS AND PHYSICAL EXAMINATION: Details of this man's history and physical can be found in the initial workup. COURSE IN THE HOSPITAL: After admission he was placed on bedrest, started on intravenous fluids and he had no further problems with abdominal pain. He had no vomiting, diarrhea, increased pain, etc. He was seen by the psych nurse who felt that he was not suicidal. His atrial fibrillation was brought under control and heart rate was slowed into the 90s. He was doing well and felt he could go home on the . He will be followed up in a day or 2 in the office. FINAL DIAGNOSES: 1. Abdominal pain, etiology unknown. 2. Atrial fibrillation with rapid ventricular response. 3. Depression. OPERATIONS: None. CONSULTATION: Cardiology. He is improved. MMODL / IJN: [id number] /
== END 2020-11-01 13:55 | disposition home or self-care (01) ==
LOC: EC 11:00 → 3SCARD 15:03
PROVIDERS: ADMIT Family Medicine; ATTEND Family Medicine
DX: I48.19 Other persistent atrial fibrillation (principal); R10.84 Generalized abdominal pain; R11.2 Nausea with vomiting, unspecified; R45.851 Suicidal ideations; R19.7 Diarrhea, unspecified; I10 Essential (primary) hypertension; K21.9 Gastro-esophageal reflux disease without esophagitis; K57.30 Diverticulosis of large intestine without perforation or abscess without bleeding; K44.9 Diaphragmatic hernia without obstruction or gangrene; E78.5 Hyperlipidemia, unspecified; I25.10 Atherosclerotic heart disease of native coronary artery without angina pectoris; I25.2 Old myocardial infarction; G25.81 Restless legs syndrome; F32.9 Major depressive disorder, single episode, unspecified; F41.9 Anxiety disorder, unspecified; Z79.01 Long term (current) use of anticoagulants; Z79.899 Other long term (current) drug therapy; Z86.39 Personal history of other endocrine, nutritional and metabolic disease; Z87.891 Personal history of nicotine dependence; Z95.5 Presence of coronary angioplasty implant and graft; Z98.890 Other specified postprocedural states; Z82.49 Family history of ischemic heart disease and other diseases of the circulatory system
CPT/HCPCS: 82075; 96361; 96374; 96375; 99285; 36415; 93005; 80061; 80053; 80048; 82150; 83605; 83690; 84484; 85025; 85610; 85730; 81003; 74177; G0378 ×3; S4990 ×2; J2270; J2405; C9113; Q9967

== ENCOUNTER 2021-01-28 11:19 | Observation (INO) | payer MEDICARE, OTHER ==
[2021-01-28] MEDS ORDERED: ASPIRIN 81 MG PO STA (11:54)
--- NOTE | 2021-01-28 12:00 | ED ---
General Adult HPI - General Chief complaint: Chest Pain Stated complaint: Chest pain, Lower edema Time Seen by Provider: 01/28/21 11:35 Source: patient, EMS, RN notes reviewed Mode of arrival: EMS Limitations: no limitations - History of Present Illness Initial comments: 85-year-old male with a past medical history of atrial fibrillation, CAD, diabetes mellitus, hyperlipidemia, hypertension, [place] presents to the emergency room for a chief complaint of chest pain. Patient states last night he started to get "chest discomfort." Describes it as sharp in nature. It is sometimes radiates to his neck but does not radiate anywhere else. Patient denies shortness of breath associated or nausea. Patient states that movement makes this worse and resting makes it better. Patient was seen in his primary care office and sent to the emergency room. Patient has no other complaints at this time including shortness of breath, abdominal pain, nausea or vomiting, headache, or visual changes. - Related Data Home Medications Medication Instructions Recorded Confirmed Metoprolol Succinate [Toprol XL] 50 mg PO DAILY 10/30/20 10/30/20 Pregabalin [Lyrica] 100 mg PO TID 10/30/20 10/30/20 dilTIAZem HCL 30 mg PO BID 10/30/20 10/30/20 lisinopriL 10 mg PO DAILY 10/30/20 10/30/20 Cyclobenzaprine [Flexeril] 5 mg PO BID 10/31/20 10/31/20 Famotidine [Pepcid] 20 mg PO DAILY 10/31/20 10/31/20 Previous Rx's Medication Instructions Recorded Apixaban [Eliquis] 5 mg PO BID #20 tab 11/01/20 Atorvastatin [Lipitor] 40 mg PO DAILY #30 tab 11/01/20 Allergies Allergy/AdvReac Type Severity Reaction Status Date / Time No Known Allergies Allergy Verified 01/28/21 13:46 Review of Systems ROS Statement: Those systems with pertinent positive or pertinent negative responses have been documented in the HPI. ROS Other: All systems not noted in ROS Statement are negative. Past Medical History Past Medical History: Atrial Fibrillation, Coronary Artery Disease (CAD), Chest Pain / Angina, Diabetes Mellitus, GERD/Reflux, Hyperlipidemia, Hypertension, Myocardial Infarction ([place]) Additional Past Medical History / Comment(s): restlesss leg syndrome, sleep study pt states "the results were really really bad." Last Myocardial Infarction Date:: 02/26/2019 History of Any Multi-Drug Resistant Organisms: None Reported Past Surgical History: Heart Catheterization, Heart Catheterization With Stent, Orthopedic Surgery Additional Past Surgical History / Comment(s): Pt states "I have had a nose job." Past Anesthesia/Blood Transfusion Reactions: No Reported Reaction Date of Last Stent Placement:: 03/29/19 Past Psychological History: Anxiety, Depression Smoking Status: Current some day smoker - Past Family History Father Family Medical History: AFIB, Coronary Artery Disease (CAD) Additional Family Medical History / Comment(s): pacemaker, blood thinners General Exam Limitations: no limitations General appearance: alert, in no apparent distress Head exam: Present: atraumatic Eye exam: Present: normal appearance, PERRL, EOMI. Absent: scleral icterus, conjunctival injection ENT exam: Present: normal exam, mucous membranes moist Neck exam: Present: normal inspection, full ROM. Absent: tenderness Respiratory exam: Present: normal lung sounds bilaterally. Absent: respiratory distress, wheezes Cardiovascular Exam: Present: regular rate, normal rhythm, normal heart sounds GI/Abdominal exam: Present: soft, normal bowel sounds. Absent: distended, tenderness Course Vital Signs 01/28/21 11:24 Temperature 98.2 F Pulse Rate 103 H Respiratory 18 Rate Blood Pressure 119/89 O2 Sat by Pulse 95 Oximetry EKG Findings - EKG Comments: EKG Findings:: Atrial fibrillation, ventricular rate 80, QRS duration 76, QTC 364 Medical Decision Making - Medical Decision Making Vitals are stable. Patient is well-appearing. Patient is rate controlled A. fib. He is anticoagulated. CBC CMP unremarkable. Troponin negative. BNP 741. Chest x-ray shows no acute process. Patient was sent into the emergency room from Dr. Hensley's office. I did speak with Dr. Hensley. At this time we are both agreeable to admitting patient for cardiology consultation and trending trops given cardiac history. - Lab Data Result diagrams: 01/28/21 12:02 01/28/21 12:02 Lab Results 01/28/21 01/28/21 01/28/21 Range/Units 12:02 12:02 12:02 WBC 5.7 (3.8-10.6) k/uL RBC 5.29 (4.30-5.90) m/uL Hgb 15.6 (13.0-17.5) gm/dL Hct 48.7 (39.0-53.0) % MCV 91.9 (80.0-100.0) fL MCH 29.4 (25.0-35.0) pg MCHC 32.0 (31.0-37.0) g/dL RDW 13.3 (11.5-15.5) % Plt Count 329 (150-450) k/uL MPV 7.5 Neutrophils % 57 % Lymphocytes % 29 % Monocytes % 8 % Eosinophils % 3 % Basophils % 1 % Neutrophils # 3.3 (1.3-7.7) k/uL Lymphocytes # 1.6 (1.0-4.8) k/uL Monocytes # 0.5 (0-1.0) k/uL Eosinophils # 0.2 (0-0.7) k/uL Basophils # 0.0 (0-0.2) k/uL PT 10.5 (9.0-12.0) sec INR 1.0 (<1.2) APTT 26.3 (22.0-30.0) sec D-Dimer 0.27 (<0.60) mg/L FEU Sodium 138 (137-145) mmol/L Potassium 5.0 (3.5-5.1) mmol/L Chloride 106 (98-107) mmol/L Carbon Dioxide 23 (22-30) mmol/L Anion Gap 9 mmol/L BUN 17 (9-20) mg/dL Creatinine 0.74 (0.66-1.25) mg/dL Est GFR (CKD-EPI)AfAm >90 (>60 ml/min/1.73 sqM) Est GFR (CKD-EPI)NonAf >90 (>60 ml/min/1.73 sqM) Glucose 103 H (74-99) mg/dL Calcium 9.8 (8.4-10.2) mg/dL Magnesium 2.0 (1.6-2.3) mg/dL Total Bilirubin 0.5 (0.2-1.3) mg/dL AST 28 (17-59) U/L ALT 25 (4-49) U/L Alkaline Phosphatase 82 (38-126) U/L Troponin I (0.000-0.034) ng/mL NT-Pro-B Natriuret Pep pg/mL Total Protein 7.1 (6.3-8.2) g/dL Albumin 4.3 (3.5-5.0) g/dL Lipase 81 (23-300) U/L 01/28/21 01/28/21 Range/Units 12:02 12:02 WBC (3.8-10.6) k/uL RBC (4.30-5.90) m/uL Hgb (13.0-17.5) gm/dL Hct (39.0-53.0) % MCV (80.0-100.0) fL MCH (25.0-35.0) pg MCHC (31.0-37.0) g/dL RDW (11.5-15.5) % Plt Count (150-450) k/uL MPV Neutrophils % % Lymphocytes % % Monocytes % % Eosinophils % % Basophils % % Neutrophils # (1.3-7.7) k/uL Lymphocytes # (1.0-4.8) k/uL Monocytes # (0-1.0) k/uL Eosinophils # (0-0.7) k/uL Basophils # (0-0.2) k/uL PT (9.0-12.0) sec INR (<1.2) APTT (22.0-30.0) sec D-Dimer (<0.60) mg/L FEU Sodium (137-145) mmol/L Potassium (3.5-5.1) mmol/L Chloride (98-107) mmol/L Carbon Dioxide (22-30) mmol/L Anion Gap mmol/L BUN (9-20) mg/dL Creatinine (0.66-1.25) mg/dL Est GFR (CKD-EPI)AfAm (>60 ml/min/1.73 sqM) Est GFR (CKD-EPI)NonAf (>60 ml/min/1.73 sqM) Glucose (74-99) mg/dL Calcium (8.4-10.2) mg/dL Magnesium (1.6-2.3) mg/dL Total Bilirubin (0.2-1.3) mg/dL AST (17-59) U/L ALT (4-49) U/L Alkaline Phosphatase (38-126) U/L Troponin I <0.012 (0.000-0.034) ng/mL NT-Pro-B Natriuret Pep 741 pg/mL Total Protein (6.3-8.2) g/dL Albumin (3.5-5.0) g/dL Lipase (23-300) U/L Disposition Clinical Impression: Chest pain Disposition: ADMITTED IP TO THIS HOSP Is patient prescribed a controlled substance at d/c from ED?: No Referrals: Reinaldo Hensley MD [Primary Care Provider] - 1-2 days Time of Disposition: 13:47
[2021-01-28 12:13] LABS: Basophils % (A) 1 %; Eosinophils # (A) 0.2 k/uL (0-0.7); Eosinophils % (A) 3 %; HCT 48.7 % (39.0-53.0); HGB 15.6 gm/dL (13.0-17.5); Lymphocytes # (A) 1.6 k/uL (1.0-4.8); Lymphocytes % (A) 29 %; MCH 29.4 pg (25.0-35.0); MCV 91.9 fL (80.0-100.0); Mean Platelet Volume 7.5; Monocytes # (A) 0.5 k/uL (0-1.0); Monocytes % (A) 8 %; Neutrophils # (A) 3.3 k/uL (1.3-7.7); Neutrophils % (A) 57 %; Platelet Count 329 k/uL (150-450); RBC 5.29 m/uL (4.30-5.90); RDW 13.3 % (11.5-15.5); WBC 5.7 k/uL (3.8-10.6)
[2021-01-28 12:33] LABS: Prothrombin Time 10.5 sec (9.0-12.0)
[2021-01-28 12:34] LABS: Partial Thromboplastin Time 26.3 sec (22.0-30.0)
[2021-01-28 12:38] LABS: ALT 25 U/L (4-49); AST 28 U/L (17-59); African American GFR (CKD) >90 (>60 ml/min/1.73 sqM); Albumin 4.3 g/dL (3.5-5.0); Alkaline Phosphatase 82 U/L (38-126); Anion Gap 9 mmol/L; Blood Urea Nitrogen 17 mg/dL (9-20); Calcium 9.8 mg/dL (8.4-10.2); Carbon Dioxide 23 mmol/L (22-30); Chloride 106 mmol/L (98-107); Glucose 103 mg/dL (74-99); Lipase 81 U/L (23-300); Non-African American GFR(CKD) >90 (>60 ml/min/1.73 sqM); Sodium 138 mmol/L (137-145); Total Bilirubin 0.5 mg/dL (0.2-1.3); Total Protein 7.1 g/dL (6.3-8.2)
--- NOTE | 2021-01-28 12:50 | XR ---
EXAMINATION TYPE: XR chest 2V DATE OF EXAM: 01/28/2021 COMPARISON: Chest x-ray 04/07/2019 HISTORY: Chest pain TECHNIQUE: Frontal and lateral views of the chest are obtained. FINDINGS: There is no focal air space opacity, pleural effusion, or pneumothorax seen, question some subsegmental atelectatic change at the right lung base. The cardiac silhouette size is within yosi l limits. There are overlying leads. The osseous structures are intact. IMPRESSION: There may be some basilar subsegmental atelectatic change
[2021-01-28] MEDS ORDERED: HYDROcodone/APAP 7.5-325MG 1 EACH TAB PO STA (14:03)
[2021-01-28] MEDS ORDERED: NICOTINE 21MG/24HR PATCH TRANSDERM STA (14:03)
--- NOTE | 2021-01-28 16:17 | HP ---
HISTORY AND PHYSICAL CHIEF COMPLAINT: Chest pain. HISTORY OF PRESENT ILLNESS: This is another admission for this 55-year-old white male. He has had a prior myocardial infarction. He came to the office on the day of admission with complaints of anterior chest pain which felt like the same discomfort that he had when he had his AR. He was a little bit short of breath and slightly diaphoretic, but not nauseated. EKG did not demonstrate any acute changes. However, with his prior and current history, it was felt safest to send him to the hospital for evaluation. He went to the emergency room, where his troponins are normal, but because of his past medical history and description of his symptoms, it was decided to admit him and have him evaluated by Cardiology. REVIEW OF SYSTEMS: He has had no headaches, syncope, difficulty with vision or the hearing, cough, hemoptysis, sputum production, abdominal pain, nausea, vomiting, melena, hematochezia, jaundice, hepatitis, renal failure, frequency, urgency, dysuria, hematuria, incontinence, nocturia, diabetes, etc. Past medical history, family history, and personal and social histories can all be found in previous admitting and discharge summaries. He is NOT ALLERGIC TO ANY MEDICATION. He takes cyclobenzaprine, Eliquis, Prozac, diltiazem, lisinopril, vitamin D, aspirin, Pepcid, atorvastatin, Toprol and Vicodin as well as 20 mg of Lasix. He continues to smoke. PHYSICAL EXAMINATION: Blood pressure 132/74, pulse of 104 and irregularly irregular. Respirations are 18. He is afebrile. In general he appeared to be well developed, well nourished, in no acute distress. Skin color is normal. Skin is warm and dry. Lymph nodes are not enlarged. Head, ears, eyes, nose, mouth and throat were normal and neck veins were not distended. Thyroid is not enlarged. Chest is clear. Cardiac exam demonstrated normal sinus rhythm and no murmurs or extra sounds. The abdomen is slightly protuberant, soft and nontender without any visceromegaly or masses. Bowel sounds are present. Extremities are normal and neurologically he is intact. He is admitted to the hospital with diagnoses: 1. Chest pain. 2. History of coronary artery disease. 3. History of myocardial infarction. 4. Atrial fibrillation. 5. Depression. PLAN: 1. Bedrest. 2. IV fluids. 3. Serial EKGs and enzymes. 4. Cardiology consult. MMSTEVAN / RICKN: [id number] /
[2021-01-28] MEDS: PREGABALIN 100 MG CAP PO SCH (19:26)
[2021-01-28] MEDS: HYDROcodone/APAP 7.5-325MG 1 EACH TAB PO SCH (19:26)
[2021-01-28] MEDS: APIXABAN 5 MG TAB PO SCH (21:03)
[2021-01-28] MEDS: DILTIAZEM ORAL 60 MG TAB PO SCH (21:03)
[2021-01-28] MEDS: CYCLOBENZAPRINE 10 MG TAB PO SCH (21:03)
[2021-01-29] MEDS: HYDROcodone/APAP 7.5-325MG 1 EACH TAB PO SCH ×4 (04:42→19:35)
[2021-01-29] MEDS: PREGABALIN 100 MG CAP PO SCH ×4 (04:42→19:36)
[2021-01-29] MEDS: APIXABAN 5 MG TAB PO SCH ×2 (09:00→21:20)
[2021-01-29] MEDS: METOPROLOL SUCCINATE (ER) 25 MG TAB.ER.24H PO SCH (09:00)
[2021-01-29] MEDS: CYCLOBENZAPRINE 10 MG TAB PO SCH ×2 (09:00→21:21)
[2021-01-29] MEDS: ASPIRIN 325 MG TAB PO SCH (09:00)
[2021-01-29] MEDS: ATORVASTATIN 40 MG TAB PO SCH (09:00)
[2021-01-29] MEDS: lisinopriL 10 MG TAB PO SCH (09:01)
[2021-01-29] MEDS: FLUoxetine HCL 20 MG CAP PO SCH (09:01)
[2021-01-29] MEDS: FUROSEMIDE 20 MG TAB PO SCH (09:01)
[2021-01-29] MEDS: DILTIAZEM ORAL 60 MG TAB PO SCH ×2 (09:35→21:21)
[2021-01-29] MEDS ORDERED: NITROGLYCERIN SL TABS 0.4 MG TAB SUBLINGUAL PRN (10:11)
--- NOTE | 2021-01-29 10:26 | P.CRDCN ---
History of Present Illness History of present illness: This is Dr. Grimaldo dictating a consult on this patient The patient was interviewed and examined Impression Patient presented with flank pain according to the EMS note later he complained of sharp chest discomfort nonradiating and chest wall movement makes it worse Normal cardiac enzymes no evidence for acute myocardial infarction History of persistent atrial fibrillation rate controlled History of diabetes type 2 Dyslipidemia Hypertension Plan Continue current medications without any changes continue antihypertensive therapy Patient does not remember taking atorvastatin 40 mg by mouth daily I emphasized the importance of taking this medication explained that was to prevent future strokes and heart attacks and cardiac arrest Continue aspirin Continue ELIQUIS Continue metoprolol and diltiazem 2-D echo and Doppler study If he stable over the next 24 hours ago home and follow 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 He describes it as a sharp discomfort but without any shortness of breath or associated nausea He states movement makes it burst and resting makes it better ROS: No fever chills or rigors, no cough, phlegm or expectoration, no nausea, vomiting or diarrhea, no hematuria, dysuria, no musculoskeletal complaints, no strokes or seizures, no skin lesions. EXAMINATION: On examination blood pressure is 122 89 mmHg afebrile Pulse rate in the 60s and 70s Heart sounds S1 and S2 are normal but irregular Breath sounds are clear 70s warm no edema REVIEW OF LABS, ECG & MEDICAL DATA Normal white count, hemoglobin normal at 15.6 Normal d-dimer Normal electrolytes Potassium 5.0 Normal renal function Normal cardiac enzymes 3 Twelve-lead EKG shows atrial fibrillation narrow QRS heart rate 80 beats a minute at rest Chest x-ray shows basilar subsegmental atelectasis Medications include lisinopril Lyrica metoprolol Lasix Prozac diltiazem atorvastatin aspirin and ELIQUIS Past Medical History Past Medical History: Atrial Fibrillation, Coronary Artery Disease (CAD), Chest Pain / Angina, GERD/Reflux, Hyperlipidemia, Hypertension, Myocardial Infarction ([place]) Additional Past Medical History / Comment(s): restlesss leg syndrome, sleep study pt states "the results were really really bad." Last Myocardial Infarction Date:: 02/26/2019 History of Any Multi-Drug Resistant Organisms: None Reported Past Surgical History: Heart Catheterization, Heart Catheterization With Stent, Orthopedic Surgery Additional Past Surgical History / Comment(s): Pt states "I have had a nose job.". cataracts sx Past Anesthesia/Blood Transfusion Reactions: No Reported Reaction Additional Past Anesthesia/Blood Transfusion Reaction / Comment(s): Patient states he has never had a blood transfusion. no reaction to anesthesia Date of Last Stent Placement:: 03/29/19 Past Psychological History: Anxiety, Bipolar, Depression, Panic Disorder Smoking Status: Current every day smoker Past Alcohol Use History: None Reported Past Drug Use History: Marijuana Additional Drug Use History / Comment(s): patient states he smokes before bed - Past Family History Father Family Medical History: AFIB, Coronary Artery Disease (CAD) Additional Family Medical History / Comment(s): pacemaker, blood thinners Mother Family Medical History: Cancer Additional Family Medical History / Comment(s): lung cancer Sister(s) Family Medical History: Cancer Additional Family Medical History / Comment(s): at 50 from cancer, unsure of type Medications and Allergies Home Medications Medication Instructions Recorded Confirmed Type Metoprolol Succinate [Toprol XL] 25 mg PO DAILY 10/30/20 01/28/21 History Pregabalin [Lyrica] 100 mg PO TID 10/30/20 01/28/21 History lisinopriL 10 mg PO DAILY 10/30/20 01/28/21 History Apixaban [Eliquis] 5 mg PO BID #20 tab 11/01/20 01/28/21 Rx Atorvastatin [Lipitor] 40 mg PO DAILY #30 tab 11/01/20 01/28/21 Rx Aspirin 81 mg PO DAILY 01/28/21 01/28/21 History Cyclobenzaprine [Flexeril] 10 mg PO BID 01/28/21 01/28/21 History Diltiazem Oral [Cardizem Oral] 60 mg PO BID 01/28/21 01/28/21 History Ergocalciferol [Vitamin D2 (1250 1,250 mcg PO MO 01/28/21 01/28/21 History Mcg = 13185 Iu)] FLUoxetine HCL [PROzac] 20 mg PO DAILY 01/28/21 01/28/21 History Furosemide [Lasix] 20 mg PO DAILY 01/28/21 01/28/21 History HYDROcodone/APAP 7.5-325MG [[place] 1 tab PO TID 01/28/21 01/28/21 History 7.5-325] Nitroglycerin Sl Tabs [Nitrostat] 0.4 mg SL Q5M PRN 01/28/21 01/28/21 History Allergies Allergy/AdvReac Type Severity Reaction Status Date / Time No Known Allergies Allergy Verified 01/28/21 18:06 Physical Exam Vitals: Vital Signs Temp Pulse Pulse Resp BP BP Pulse Ox 01/29/21 07:00 97.5 F L 75 18 122/89 98 01/29/21 02:20 67 16 01/29/21 01:56 97.4 F L 67 16 101/69 96 01/28/21 19:32 84 17 01/28/21 18:55 97.9 F 90 17 108/76 96 01/28/21 18:20 98.0 F 84 17 110/76 97 01/28/21 14:40 77 18 109/95 94 L 01/28/21 13:57 92 18 91/76 95 01/28/21 11:24 98.2 F 103 H 18 119/89 95 Intake and Output 01/28/21 01/29/21 01/29/21 22:59 06:59 14:59 Other: # Voids 1 1 Weight 77.111 kg Results 01/28/21 12:02 01/28/21 12:02 Cardiac Enzymes 01/28/21 01/28/21 01/28/21 Range/Units 12:02 12:02 15:27 AST 28 (17-59) U/L Troponin I <0.012 <0.012 (0.000-0.034) ng/mL 01/28/21 Range/Units 18:43 AST (17-59) U/L Troponin I <0.012 (0.000-0.034) ng/mL Coagulation 01/28/21 Range/Units 12:02 PT 10.5 (9.0-12.0) sec APTT 26.3 (22.0-30.0) sec CBC 01/28/21 Range/Units 12:02 WBC 5.7 (3.8-10.6) k/uL RBC 5.29 (4.30-5.90) m/uL Hgb 15.6 (13.0-17.5) gm/dL Hct 48.7 (39.0-53.0) % Plt Count 329 (150-450) k/uL Comprehensive Metabolic Panel 01/28/21 Range/Units 12:02 Sodium 138 (137-145) mmol/L Potassium 5.0 (3.5-5.1) mmol/L Chloride 106 (98-107) mmol/L Carbon Dioxide 23 (22-30) mmol/L BUN 17 (9-20) mg/dL Creatinine 0.74 (0.66-1.25) mg/dL Glucose 103 H (74-99) mg/dL Calcium 9.8 (8.4-10.2) mg/dL AST 28 (17-59) U/L ALT 25 (4-49) U/L Alkaline Phosphatase 82 (38-126) U/L Total Protein 7.1 (6.3-8.2) g/dL Albumin 4.3 (3.5-5.0) g/dL Current Medications Generic Name Dose Route Start Last Admin Trade Name Freq PRN Reason Stop Dose Admin Hydrocodone Bitart/Acetaminophen 1 each 01/29/21 05:00 01/29/21 04:42 Hydrocodone/Apap 7.5-325mg 1 Each Tab PO 1 each TID@0500,1200,1900 HEIDI Administration Apixaban 5 mg 01/28/21 21:00 01/28/21 21:03 Apixaban 5 Mg Tab PO 5 mg BID HEIDI Administration Protocol Aspirin 325 mg 01/29/21 09:00 Aspirin 325 Mg Tab PO DAILY [facility] Atorvastatin Calcium 40 mg 01/29/21 09:00 Atorvastatin 40 Mg Tab PO DAILY [facility] Cyclobenzaprine HCl 10 mg 01/28/21 21:00 01/28/21 21:03 Cyclobenzaprine 10 Mg Tab PO 10 mg BID HEIDI Administration Diltiazem HCl 60 mg 01/28/21 21:00 01/28/21 21:03 Diltiazem Oral 60 Mg Tab PO 60 mg BID HEIDI Administration Ergocalciferol 1,250 mcg 02/01/21 09:00 Ergocalciferol 1,250 Mcg (50,000 Iu) Capsule PO MO [facility] Fluoxetine HCl 20 mg 01/29/21 09:00 Fluoxetine Hcl 20 Mg Cap PO DAILY [facility] Furosemide 20 mg 01/29/21 09:00 Furosemide 20 Mg Tab PO DAILY [facility] Lisinopril 10 mg 01/29/21 09:00 Lisinopril 10 Mg Tab PO DAILY [facility] Metoprolol Succinate 25 mg 01/29/21 09:00 Metoprolol Succinate (Er) 25 Mg Tab.Er.24h PO DAILY [facility] Pregabalin 100 mg 01/29/21 05:00 01/29/21 04:42 Pregabalin 100 Mg Cap PO 100 mg TID@0500,1200,1900 HEIDI Administration Intake and Output 01/28/21 01/29/21 01/29/21 22:59 06:59 14:59 Other: # Voids 1 1 Weight 77.111 kg 01/28/21 12:02 01/28/21 12:02
[2021-01-29 11:04] LABS: Chol/HDL Ratio 4.78 Ratio; HDL Cholesterol 40.6 mg/dL (40.00-60.00); LDL Cholesterol,Calculated 119.2 mg/dL (0.0-131.0); VLDL Calculation 34.2 mg/dL (5.00-40.00)
--- NOTE | 2021-01-29 18:08 | PN ---
PROGRESS NOTE CHIEF COMPLAINT: Chest pain and shortness of breath. HISTORY OF PRESENT ILLNESS: This gentleman is not having any further chest pain, but he is having more shortness of breath. He has had no fever or chills. He has had no hemoptysis. We await further evaluation from Cardiology. PHYSICAL EXAMINATION: Vital signs are normal. Chest demonstrates scattered rhonchi and rales. The cardiac exam is normal. The abdomen is soft, nontender. IMPRESSION: 1. Chest pain. 2. History of coronary artery disease. 3. Shortness of breath. 4. ? Congestive heart failure. PLAN: 1. Await further recommendations from Cardiology. 2. BNP. He could be manifesting congestive heart failure. MMODL / IJN: [id number] /
[2021-01-30] MEDS: NICOTINE 21MG/24HR PATCH TRANSDERM SCH ×2 (02:15→07:50)
[2021-01-30] MEDS: HYDROcodone/APAP 7.5-325MG 1 EACH TAB PO SCH ×2 (05:06→11:39)
[2021-01-30] MEDS: PREGABALIN 100 MG CAP PO SCH ×2 (05:06→11:39)
[2021-01-30] MEDS: APIXABAN 5 MG TAB PO SCH (07:51)
[2021-01-30] MEDS: ASPIRIN 325 MG TAB PO SCH (07:51)
[2021-01-30] MEDS: METOPROLOL SUCCINATE (ER) 25 MG TAB.ER.24H PO SCH (07:51)
[2021-01-30] MEDS: FUROSEMIDE 20 MG TAB PO SCH (07:51)
[2021-01-30] MEDS: DILTIAZEM ORAL 60 MG TAB PO SCH (07:51)
[2021-01-30] MEDS: ATORVASTATIN 40 MG TAB PO SCH (07:51)
[2021-01-30] MEDS: CYCLOBENZAPRINE 10 MG TAB PO SCH (07:51)
[2021-01-30] MEDS: FLUoxetine HCL 20 MG CAP PO SCH (07:51)
[2021-01-30] MEDS: lisinopriL 10 MG TAB PO SCH (07:51)
--- NOTE | 2021-01-30 14:20 | PN ---
PROGRESS NOTE CHIEF COMPLAINT: Chest pain. HISTORY OF PRESENT ILLNESS: This gentleman is doing fairly well, but he is still short of breath. His BNP is elevated. He has been seen by Cardiology and awaits further evaluation. It is suspected that he has an element of congestive heart failure. REVIEW OF SYSTEMS: He is a little bit short of breath. PHYSICAL EXAMINATION: He has scattered rales bilaterally. The cardiac exam is unremarkable. The abdomen is soft and nontender. IMPRESSION: 1. Coronary artery disease. 2. Congestive heart failure. PLAN: Increase Lasix from 20 to 40 mg once a day. MMODL / IJN: [id number] /
[2021-01-30 16:15] VITALS: BP 113/66; PULSE 69; RESP 16; TEMP 98.1
[2021-01-31] MEDS ORDERED: FUROSEMIDE 40 MG TAB PO SCH (09:00)
--- NOTE | 2021-01-31 13:01 | DS ---
DISCHARGE SUMMARY DATE OF DISCHARGE: 01/30/2021 CHIEF COMPLAINT: Chest pain. HISTORY OF PRESENT ILLNESS AND PHYSICAL EXAMINATION: Details of this man's history and physical can be found in the initial workup. LABORATORY STUDIES: While he was in the hospital he had laboratory studies, details of which can be found in the laboratory section of his chart. COURSE IN THE HOSPITAL: After admission he was placed on bedrest and started intravenous fluids. Cardiac enzymes were normal. He was seen by Cardiology, who felt that there was no need for further intervention on their part. It was noticed that his BNP was elevated and he did have rales. His Lasix dose was increased from 20 to 40 mg once a day, and it was planned that the patient would be kept in the hospital to see if there was improvement in his heart failure. However, he signed out AGAINST MEDICAL ADVICE. FINAL DIAGNOSES: 1. Chest pain. 2. Coronary artery disease. 3. Congestive heart failure. OPERATIONS: None. CONSULTATION: Cardiology. He is not improved. MMODL / IJN: [id number] /
[2021-02-01] MEDS ORDERED: ERGOCALCIFEROL 1,250 MCG (50,000 IU) CAPSULE PO SCH (09:00)
== END 2021-01-30 16:25 | disposition left against medical advice (07) ==
LOC: EC 11:19 → 6NMEDSUR 13:46
PROVIDERS: ADMIT Family Medicine; ATTEND Family Medicine
DX: R07.89 Other chest pain (principal); I25.10 Atherosclerotic heart disease of native coronary artery without angina pectoris; I11.0 Hypertensive heart disease with heart failure; I50.9 Heart failure, unspecified; Z53.29 Procedure and treatment not carried out because of patient's decision for other reasons; R61 Generalized hyperhidrosis; R10.9 Unspecified abdominal pain; I48.19 Other persistent atrial fibrillation; E11.9 Type 2 diabetes mellitus without complications; K21.9 Gastro-esophageal reflux disease without esophagitis; G25.81 Restless legs syndrome; E78.5 Hyperlipidemia, unspecified; I25.2 Old myocardial infarction; F41.9 Anxiety disorder, unspecified; F31.9 Bipolar disorder, unspecified; F41.0 Panic disorder [episodic paroxysmal anxiety]; F17.200 Nicotine dependence, unspecified, uncomplicated; Z79.899 Other long term (current) drug therapy; Z79.82 Long term (current) use of aspirin; Z79.891 Long term (current) use of opiate analgesic; Z79.01 Long term (current) use of anticoagulants; Z95.5 Presence of coronary angioplasty implant and graft; Z82.49 Family history of ischemic heart disease and other diseases of the circulatory system; Z80.1 Family history of malignant neoplasm of trachea, bronchus and lung
CPT/HCPCS: 99285; 36415; 93005; 85379; 83880 ×2; 80061; 80053; 83690; 83735; 84484; 85025; 85610; 85730; 71046; G0378 ×3; S4990 ×2

== ENCOUNTER 2022-01-22 02:15 | Observation (INO) | payer MEDICARE, OTHER ==
[2022-01-22 02:49] LABS: Basophils % (A) 0 %; Eosinophils # (A) 0.2 k/uL (0-0.7); Eosinophils % (A) 2 %; HCT 48.5 % (39.0-53.0); Lymphocytes # (A) 2.1 k/uL (1.0-4.8); Lymphocytes % (A) 23 %; MCH 29.6 pg (25.0-35.0); MCV 89.5 fL (80.0-100.0); Mean Platelet Volume 7.6; Monocytes # (A) 0.5 k/uL (0-1.0); Monocytes % (A) 5 %; Neutrophils # (A) 6.1 k/uL (1.3-7.7); Neutrophils % (A) 67 %; Platelet Count 258 k/uL (150-450); RBC 5.42 m/uL (4.30-5.90); RDW 12.8 % (11.5-15.5); WBC 9.2 k/uL (3.8-10.6)
[2022-01-22 02:59] LABS: ALT 35 U/L (4-49); African American GFR (CKD) >90 (>60 ml/min/1.73 sqM); Albumin 4.4 g/dL (3.5-5.0); Anion Gap 12 mmol/L; Blood Urea Nitrogen 21 mg/dL (9-20); Calcium 8.9 mg/dL (8.4-10.2); Carbon Dioxide 24 mmol/L (22-30); Chloride 100 mmol/L (98-107); Glucose 134 mg/dL (74-99); Non-African American GFR(CKD) >90 (>60 ml/min/1.73 sqM); Sodium 136 mmol/L (137-145); Total Bilirubin 0.5 mg/dL (0.2-1.3); Total Protein 6.7 g/dL (6.3-8.2)
--- NOTE | 2022-01-22 03:01 | XR ---
EXAMINATION TYPE: XR chest 1V DATE OF EXAM: 01/22/2022 COMPARISON: 01/28/2021 HISTORY: Chest pain TECHNIQUE: FINDINGS: Heart is normal. Lungs are clear of infiltrate. No heart failure. There are no hilar masses . There are chest leads. Bony thorax is intact. IMPRESSION: No active cardiopulmonary disease. No change.
[2022-01-22 03:03] LABS: Magnesium 2.4 mg/dL (1.6-2.3); Potassium 4.6 mmol/L (3.5-5.1)
[2022-01-22 03:04] LABS: AST 34 U/L (17-59); Alkaline Phosphatase 69 U/L (38-126)
--- NOTE | 2022-01-22 03:05 | CT ---
EXAMINATION TYPE: CT brain latrice wo con DATE OF EXAM: 01/22/2022 COMPARISON: 03/24/2019 HISTORY: fall CT DLP: 1492.3 mGycm Automated exposure control for dose reduction was used. Images of the brain and cervical spine obtained without contrast. Ventricles have normal size. There is no mass effect or midline shift. No sign of intracranial hemorr bernardino. The calvarium is intact. Skull base is intact. There is very little pneumatization right mastoi d sinus. The cervical vertebra have normal alignment. There is degenerative disc space narrowing at C5-6 with spurring of the endplates. There is spurring at C5-6 and C6-7 and also C3-4. No compression fracture. Facet joints are intact. There is mild cervical facet arthropathy. No evidence of focal bone destruc tion. IMPRESSION: Negative CT scan of the brain. No change compared to old exam. Cervical multilevel spondylotic changes. No fracture. No change compared to old exam.
[2022-01-22 03:09] LABS: Partial Thromboplastin Time 23.8 sec (22.0-30.0); Prothrombin Time 11.1 sec (9.0-12.0)
--- NOTE | 2022-01-22 04:44 | ED ---
Fall HPI - General Chief Complaint: Fall Stated Complaint: Syncope Time Seen by Provider: 01/22/22 02:18 Source: EMS Mode of arrival: EMS - History of Present Illness Initial Comments: this patient is 56-year-old man brought here to have evaluation after he reportedly had a syncopal episode, fell and hit his head. Patient states he had been in his usual state of health until tonight. He states he was watching television then began feeling short of breath. He thought he was starting to experience panic attack. Patient reportedly then stood up and passed out. He does complain of some mild neck pain and head pain after the fall. He states that there was no chest pain. there is no chest pain now MD Complaint: fall -: minutes(s) Fall From: standing When Fall Occurred: just prior to arrival Fall Witnessed: yes, by family Place Fall Occurred: home Loss of Consciousness: yes, second(s) Prolonged Down Time?: no Symptoms Prior to Fall: dizziness Location: head, neck Severity: moderate Associated Symptoms: headache, neck pain - Related Data Home Medications Medication Instructions Recorded Confirmed Metoprolol Succinate [Toprol XL] 25 mg PO DAILY 10/30/20 01/28/21 Pregabalin [Lyrica] 100 mg PO TID 10/30/20 01/28/21 lisinopriL [Prinivil] 10 mg PO DAILY 10/30/20 01/28/21 Aspirin 81 mg PO DAILY 01/28/21 01/28/21 Cyclobenzaprine [Flexeril] 10 mg PO BID 01/28/21 01/28/21 Diltiazem Oral [Cardizem Oral] 60 mg PO BID 01/28/21 01/28/21 Ergocalciferol [Vitamin D2 (1250 1,250 mcg PO MO 01/28/21 01/28/21 Mcg = 51468 Iu)] FLUoxetine HCL [PROzac] 20 mg PO DAILY 01/28/21 01/28/21 Furosemide [Lasix] 20 mg PO DAILY 01/28/21 01/28/21 HYDROcodone/APAP 7.5-325MG [[place] 1 tab PO TID 01/28/21 01/28/21 7.5-325] Nitroglycerin Sl Tabs [Nitrostat] 0.4 mg SL Q5M PRN 10/21/21 10/21/21 Previous Rx's Medication Instructions Recorded Apixaban [Eliquis] 5 mg PO BID #20 tab 11/01/20 Atorvastatin [Lipitor] 40 mg PO DAILY #30 tab 11/01/20 Allergies Allergy/AdvReac Type Severity Reaction Status Date / Time No Known Allergies Allergy Verified 01/22/22 02:29 Review of Systems ROS Statement: Those systems with pertinent positive or pertinent negative responses have been documented in the HPI. ROS Other: All systems not noted in ROS Statement are negative. Constitutional: Denies: fever, chills Eyes: Denies: vision change Respiratory: Reports: as per HPI, dyspnea. Denies: cough, wheezes Cardiovascular: Reports: syncope. Denies: chest pain, palpitations, orthopnea, edema Gastrointestinal: Denies: abdominal pain, nausea, vomiting, diarrhea Genitourinary: Denies: dysuria, hematuria Musculoskeletal: Denies: back pain Skin: Denies: rash Neurological: Reports: headache, confusion. Denies: weakness, numbness, paresthesias Past Medical History Past Medical History: Atrial Fibrillation, Coronary Artery Disease (CAD), Chest Pain / Angina, GERD/Reflux, Hyperlipidemia, Hypertension, Myocardial Infarction ([place]) Additional Past Medical History / Comment(s): restlesss leg syndrome, sleep study pt states "the results were really really bad." Last Myocardial Infarction Date:: 02/26/2019 History of Any Multi-Drug Resistant Organisms: None Reported Past Surgical History: Heart Catheterization, Heart Catheterization With Stent, Orthopedic Surgery Additional Past Surgical History / Comment(s): Pt states "I have had a nose job.". cataracts sx Past Anesthesia/Blood Transfusion Reactions: No Reported Reaction Additional Past Anesthesia/Blood Transfusion Reaction / Comment(s): Patient states he has never had a blood transfusion. no reaction to anesthesia Date of Last Stent Placement:: 03/29/19 Past Psychological History: Anxiety, Bipolar, Depression, Panic Disorder Smoking Status: Current every day smoker Past Alcohol Use History: None Reported Past Drug Use History: Marijuana - Past Family History Father Family Medical History: AFIB, Coronary Artery Disease (CAD) Additional Family Medical History / Comment(s): pacemaker, blood thinners Mother Family Medical History: Cancer Additional Family Medical History / Comment(s): lung cancer Sister(s) Family Medical History: Cancer Additional Family Medical History / Comment(s): at 50 from cancer, unsure of type General Exam General appearance: alert, in no apparent distress Head exam: Present: atraumatic, normocephalic Eye exam: Present: normal appearance. Absent: scleral icterus, conjunctival injection Neck exam: Present: normal inspection, other (in cervical collar). Absent: tenderness Respiratory exam: Present: normal lung sounds bilaterally. Absent: respiratory distress, wheezes, rales, rhonchi, stridor, chest wall tenderness, accessory muscle use, decreased breath sounds Cardiovascular Exam: Present: tachycardia, irregular rhythm, normal heart sounds. Absent: systolic murmur, diastolic murmur, rubs, gallop GI/Abdominal exam: Present: soft. Absent: distended, tenderness, guarding, rebound, rigid, mass Extremities exam: Present: normal inspection, normal capillary refill. Absent: pedal edema, calf tenderness Back exam: Present: normal inspection. Absent: CVA tenderness (R), CVA tenderness (L) Neurological exam: Present: alert, CN II-XII intact. Absent: motor sensory deficit Skin exam: Present: warm, dry, intact, normal color. Absent: rash Course Vital Signs 01/22/22 01/22/22 01/22/22 02:27 05:06 05:14 Temperature 98.4 F Pulse Rate 91 113 H 80 Respiratory 18 18 Rate Blood Pressure 109/86 90/50 O2 Sat by Pulse 97 97 Oximetry 01/22/22 01/22/22 01/22/22 05:50 06:24 07:07 Temperature Pulse Rate 107 H 111 H 103 H Respiratory 18 Rate Blood Pressure 115/83 95/70 108/76 O2 Sat by Pulse 97 Oximetry 01/22/22 07:46 Temperature 98.4 F Pulse Rate 106 H Respiratory 16 Rate Blood Pressure 95/76 O2 Sat by Pulse 97 Oximetry Medical Decision Making - Lab Data Result diagrams: 01/22/22 02:23 01/22/22 02:23 Lab Results 01/22/22 01/22/22 01/22/22 Range/Units 02:23 02:23 02:23 WBC 9.2 (3.8-10.6) k/uL RBC 5.42 (4.30-5.90) m/uL Hgb 16.0 (13.0-17.5) gm/dL Hct 48.5 (39.0-53.0) % MCV 89.5 (80.0-100.0) fL MCH 29.6 (25.0-35.0) pg MCHC 33.0 (31.0-37.0) g/dL RDW 12.8 (11.5-15.5) % Plt Count 258 (150-450) k/uL MPV 7.6 Neutrophils % 67 % Lymphocytes % 23 % Monocytes % 5 % Eosinophils % 2 % Basophils % 0 % Neutrophils # 6.1 (1.3-7.7) k/uL Lymphocytes # 2.1 (1.0-4.8) k/uL Monocytes # 0.5 (0-1.0) k/uL Eosinophils # 0.2 (0-0.7) k/uL Basophils # 0.0 (0-0.2) k/uL PT 11.1 (9.0-12.0) sec INR 1.0 (<1.2) APTT 23.8 (22.0-30.0) sec D-Dimer 0.32 (<0.60) mg/L FEU Sodium 136 L (137-145) mmol/L Potassium 4.6 (3.5-5.1) mmol/L Chloride 100 (98-107) mmol/L Carbon Dioxide 24 (22-30) mmol/L Anion Gap 12 mmol/L BUN 21 H (9-20) mg/dL Creatinine 0.88 (0.66-1.25) mg/dL Est GFR (CKD-EPI)AfAm >90 (>60 ml/min/1.73 sqM) Est GFR (CKD-EPI)NonAf >90 (>60 ml/min/1.73 sqM) Glucose 134 H (74-99) mg/dL Calcium 8.9 (8.4-10.2) mg/dL Magnesium 2.4 H (1.6-2.3) mg/dL Total Bilirubin 0.5 (0.2-1.3) mg/dL AST 34 (17-59) U/L ALT 35 (4-49) U/L Alkaline Phosphatase 69 (38-126) U/L Troponin I (0.000-0.034) ng/mL NT-Pro-B Natriuret Pep pg/mL Total Protein 6.7 (6.3-8.2) g/dL Albumin 4.4 (3.5-5.0) g/dL 01/22/22 01/22/22 Range/Units 02:23 02:23 WBC (3.8-10.6) k/uL RBC (4.30-5.90) m/uL Hgb (13.0-17.5) gm/dL Hct (39.0-53.0) % MCV (80.0-100.0) fL MCH (25.0-35.0) pg MCHC (31.0-37.0) g/dL RDW (11.5-15.5) % Plt Count (150-450) k/uL MPV Neutrophils % % Lymphocytes % % Monocytes % % Eosinophils % % Basophils % % Neutrophils # (1.3-7.7) k/uL Lymphocytes # (1.0-4.8) k/uL Monocytes # (0-1.0) k/uL Eosinophils # (0-0.7) k/uL Basophils # (0-0.2) k/uL PT (9.0-12.0) sec INR (<1.2) APTT (22.0-30.0) sec D-Dimer (<0.60) mg/L FEU Sodium (137-145) mmol/L Potassium (3.5-5.1) mmol/L Chloride (98-107) mmol/L Carbon Dioxide (22-30) mmol/L Anion Gap mmol/L BUN (9-20) mg/dL Creatinine (0.66-1.25) mg/dL Est GFR (CKD-EPI)AfAm (>60 ml/min/1.73 sqM) Est GFR (CKD-EPI)NonAf (>60 ml/min/1.73 sqM) Glucose (74-99) mg/dL Calcium (8.4-10.2) mg/dL Magnesium (1.6-2.3) mg/dL Total Bilirubin (0.2-1.3) mg/dL AST (17-59) U/L ALT (4-49) U/L Alkaline Phosphatase (38-126) U/L Troponin I <0.012 (0.000-0.034) ng/mL NT-Pro-B Natriuret Pep 402 pg/mL Total Protein (6.3-8.2) g/dL Albumin (3.5-5.0) g/dL - EKG Data -: EKG Interpreted by Me EKG shows normal: axis (normal), intervals (normal) Rate: tachycardia (rate 109 bpm) Interpretation: nonspecific ST-T wave changes, other (atrial fibrillation, rate 109 bpm) Disposition Clinical Impression: Fall, Atrial fibrillation with RVR, Syncope Disposition: ADMITTED IP TO THIS [facility] Condition: Fair Instructions (If sedation given, give patient instructions): Fall Prevention (ED) Is patient prescribed a controlled substance at d/c from ED?: No Referrals: None,Stated [Primary Care Provider] - 1-2 days
[2022-01-22] MEDS ORDERED: SODIUM CHLORIDE 0.9% 500 ML 500 ML IV STA ×2 (05:13→06:37)
[2022-01-22] MEDS ORDERED: CYCLOBENZAPRINE 10 MG TAB PO STA (07:50)
[2022-01-22] MEDS ORDERED: HYDROcodone/APAP 7.5-325MG 1 EACH TAB PO ONE (07:50)
[2022-01-22] MEDS ORDERED: NITROGLYCERIN SL TABS 0.4 MG TAB SUBLINGUAL PRN (08:22)
[2022-01-22] MEDS: HYDROcodone/APAP 7.5-325MG 1 EACH TAB PO SCH ×3 (08:34→21:17)
[2022-01-22] MEDS: METOPROLOL SUCCINATE (ER) 50 MG TAB.ER.24H PO SCH (08:35)
[2022-01-22] MEDS ORDERED: METOPROLOL SUCCINATE (ER) 25 MG TAB.ER.24H PO SCH (09:00)
[2022-01-22] MEDS ORDERED: lisinopriL 10 MG TAB PO SCH (09:00)
[2022-01-22] MEDS: PREGABALIN 100 MG CAP PO SCH ×3 (09:56→21:18)
[2022-01-22] MEDS: DILTIAZEM ORAL 60 MG TAB PO SCH ×2 (09:56→21:18)
[2022-01-22] MEDS: ASPIRIN 81 MG PO SCH (09:56)
[2022-01-22] MEDS: APIXABAN 5 MG TAB PO SCH ×2 (09:56→21:18)
[2022-01-22] MEDS: ATORVASTATIN 40 MG TAB PO SCH (09:56)
[2022-01-22] MEDS: FLUoxetine HCL 20 MG CAP PO SCH (09:56)
[2022-01-22] MEDS ORDERED: NICOTINE 21MG/24HR PATCH TRANSDERM STA (10:01)
[2022-01-22] MEDS ORDERED: ACETAMINOPHEN TAB 325 MG TAB PO PRN ×2 (20:05)
[2022-01-23] MEDS ORDERED: HYDROcodone/APAP 7.5-325MG 1 EACH TAB PO PRN (05:28)
[2022-01-23 08:38] VITALS: BP 145/99; PULSE 87; RESP 16; TEMP 98.4
[2022-01-23] MEDS: FLUoxetine HCL 20 MG CAP PO SCH (08:45)
[2022-01-23] MEDS: ASPIRIN 81 MG PO SCH (08:45)
[2022-01-23] MEDS: PREGABALIN 100 MG CAP PO SCH (08:45)
[2022-01-23] MEDS: ATORVASTATIN 40 MG TAB PO SCH (08:45)
[2022-01-23] MEDS: APIXABAN 5 MG TAB PO SCH (08:45)
[2022-01-23] MEDS ORDERED: METOPROLOL SUCCINATE (ER) 100 MG TAB.ER.24H PO SCH (09:00)
[2022-01-23] MEDS ORDERED: ASPIRIN 325 MG TAB PO SCH (09:00)
[2022-01-23 09:07] LABS: Chol/HDL Ratio 3.73 Ratio
--- NOTE | 2022-01-23 13:08 | P.CRDCN ---
History of Present Illness Consult date: 01/23/22 History of present illness: The patient is a 56-year-old male who follows with Dr. Biggs in our office. He was brought to the emergency room after experiencing a syncopal spell. The patient states he had eaten shrimp for dinner last night, when he felt lightheaded and dizzy. He thought he might be having a panic attack and when he arose out of the recliner chair, he collapsed on the ground. DIAGNOSTICS: EKG shows atrial fibrillation Chest x-ray shows no active cardiopulmonary disease CT of the brain and cervical spine shows no acute abnormalities Lab data: WBC 9.2, hemoglobin 16, hematocrit 48.5, platelet 256, d-dimer 0.32, sodium 136, potassium 4.6, BUN 21, creatinine 0.88, magnesium 2.4, AST 34, ALT 35, troponins negative 3, BNP 402, LDL 82, triglycerides 179 PAST MEDICAL HISTORY: Persistent atrial fibrillation, CAD with prior stenting REVIEW OF SYSTEMS: No fever or chills. No cough or expectoration. No diaphoresis. Patient denies headache, dizziness, blurred vision, double vision. Patient denies any stomach discomfort. No nausea, vomiting. No hematochezia. No hematemesis. Denies any black stools or blood in his stools. Denies dysuria or hematuria. No muscle weakness or numbness. No chest pain or chest pressure currently. No dyspnea. PHYSICAL EXAMINATION: This is a 56-year-old male in no apparent distress at the time of my examination. HEENT: Head is atraumatic, normocephalic. Pupils are equal, round. Sclerae anicteric. Conjunctivae are clear. Mucous membranes of the mouth are moist. Neck is supple. There is no jugular venous distention. No carotid bruit is heard. CHEST EXAMINATION: Bilateral inspiratory wheezes. No chest wall tenderness is noted on palpation or with deep breathing. HEART EXAMINATION: Irregular rate and rhythm. S1, S2 heard. No murmurs, gallops or rub. ABDOMEN: Soft, nontender. Bowel sounds are heard. No organomegaly noted. EXTREMITIES: 2+ peripheral pulses with no evidence of peripheral edema and no calf tenderness noted. NEUROLOGIC EXAMINATION: Patient is awake, alert and oriented x3. FINAL ASSESSMENT AND PLAN: Syncope and collapse Hypotension History of persistent atrial fibrillation History of coronary artery disease PLAN: Discontinue to diltiazem Increase metoprolol to 100 mg in the morning Move lisinopril to 10 mg in the evening Patient may be discharged from the cardiac standpoint Follow-up with primary mill stenciler in 2 weeks I am dictating on behalf of Dr Abhijeet Grimaldo's history/physical and assessment/plan. Past Medical History Past Medical History: Atrial Fibrillation, Coronary Artery Disease (CAD), Chest Pain / Angina, Fibromyalgia, GERD/Reflux, Hyperlipidemia, Hypertension, Myocardial Infarction ([place]) Additional Past Medical History / Comment(s): restlesss leg syndrome, sleep study pt states "the results were really really bad." Pt states he has some blockage in his urethra. Pt states he may have "noncomplicated type 2 diabetes" and takes no diabetic medications at home. DDD. Last Myocardial Infarction Date:: 02/26/2019 History of Any Multi-Drug Resistant Organisms: None Reported Past Surgical History: Heart Catheterization, Heart Catheterization With Stent, Orthopedic Surgery Additional Past Surgical History / Comment(s): Pt states "I have had a nose job.". cataracts sx Past Anesthesia/Blood Transfusion Reactions: No Reported Reaction Additional Past Anesthesia/Blood Transfusion Reaction / Comment(s): Patient states he has never had a blood transfusion. no reaction to anesthesia Date of Last Stent Placement:: 03/29/19 Past Psychological History: Anxiety, Bipolar, Depression, Panic Disorder Smoking Status: Current some day smoker Past Alcohol Use History: None Reported Past Drug Use History: Marijuana - Past Family History Father Family Medical History: AFIB, Coronary Artery Disease (CAD) Additional Family Medical History / Comment(s): pacemaker, blood thinners Mother Family Medical History: Cancer Additional Family Medical History / Comment(s): lung cancer Sister(s) Family Medical History: Cancer Additional Family Medical History / Comment(s): at 50 from cancer, unsure of type Medications and Allergies Home Medications Medication Instructions Recorded Confirmed Type Metoprolol Succinate [Toprol XL] 50 mg PO DAILY 10/30/20 01/22/22 History Pregabalin [Lyrica] 100 mg PO TID 10/30/20 01/22/22 History lisinopriL [Prinivil] 10 mg PO DAILY 10/30/20 01/22/22 History Apixaban [Eliquis] 5 mg PO BID #20 tab 11/01/20 01/22/22 Rx Atorvastatin [Lipitor] 40 mg PO DAILY #30 tab 11/01/20 01/22/22 Rx Aspirin 81 mg PO DAILY 01/28/21 01/22/22 History Cyclobenzaprine [Flexeril] 10 mg PO BID PRN 01/28/21 01/22/22 History Furosemide [Lasix] 20 mg PO DAILY 01/28/21 01/22/22 History HYDROcodone/APAP 7.5-325MG [[place] 1 tab PO TID PRN 01/28/21 01/22/22 History 7.5-325] Nitroglycerin Sl Tabs [Nitrostat] 0.4 mg SL Q5M PRN 01/28/21 01/22/22 History Cranberry Fruit Extract [Cranberry] 500 mg PO DAILY 01/22/22 01/22/22 History Docusate [Colace] 100 mg PO DAILY 01/22/22 01/22/22 History Famotidine 20 mg PO DAILY 01/22/22 01/22/22 History Milk Thistle 150 mg PO DAILY 01/22/22 01/22/22 History Turmeric Root Extract [Turmeric] 500 mg PO DAILY 01/22/22 01/22/22 History dilTIAZem HCL 30 mg PO BID 01/22/22 01/22/22 History Allergies Allergy/AdvReac Type Severity Reaction Status Date / Time No Known Allergies Allergy Verified 01/22/22 02:29 Physical Exam Vitals: Vital Signs Temp Pulse Pulse Pulse Pulse Pulse Resp 01/23/22 08:31 87 103 H 81 01/23/22 07:00 98.4 F 87 16 01/23/22 02:26 97.5 F L 80 17 01/22/22 19:26 97.6 F 76 18 01/22/22 17:30 98 F 89 16 01/22/22 14:56 98.5 F 93 16 BP BP BP BP BP Pulse Ox 01/23/22 08:31 150/89 125/97 131/82 01/23/22 07:00 145/99 96 01/23/22 02:26 111/84 99 01/22/22 19:26 123/77 99 01/22/22 17:30 131/77 98 01/22/22 14:56 130/84 100 Intake and Output 10/01/23/22 01/23/22 22:59 06:59 14:59 Intake Total 500 Output Total 3 Balance 500 -3 Intake: Oral 500 Output: Stool 3 Other: Voiding Method Toilet # Voids 1 2 Weight 77 kg Results 01/22/22 02:23 01/22/22 02:23 Lipids 01/23/22 Range/Units 06:04 Triglycerides 179.00 H (0.00-149.00) mg/dL Cholesterol 161.00 (0.00-200.00) mg/dL HDL Cholesterol 43.20 (40.00-60.00) mg/dL Cholesterol/HDL Ratio 3.73 Ratio Intake and Output 01/22/22 01/23/22 01/23/22 22:59 06:59 14:59 Intake Total 500 Output Total 3 Balance 500 -3 Intake: Oral 500 Output: Stool 3 Other: Voiding Method Toilet # Voids 1 2 Weight 77 kg 01/22/22 02:23 01/22/22 02:23
[2022-01-23] MEDS ORDERED: lisinopriL 10 MG TAB PO SCH (21:00)
--- NOTE | 2022-01-23 23:42 | HP ---
HISTORY AND PHYSICAL REVIEW OF SYSTEMS: He denies any focal neurological deficits, chest pain, nausea, vomiting, diarrhea, melena, hematochezia, incontinence, etc. Remainder of his history is unremarkable. CURRENT MEDICATIONS: 1. Lisinopril 10 mg once a day. 2. Pepcid 20 mg once a day. 3. Lasix 20 mg once a day. 4. Eliquis 5 mg twice a day. 5. Pravastatin 40 once a day. 6. Vicodin 7.5 t.i.d. p.r.n. 7. . PHYSICAL EXAMINATION: VITAL SIGNS: Blood pressure is 146/82, pulse 62, respiratory rate 16, he is afebrile. GENERAL: Appeared to be somewhat disheveled, and in no acute distress. HEAD, EARS, EYES, NOSE, MOUTH, AND THROAT: Normal. NECK: Carotids were normal. CHEST: Clear. CARDIAC: Normal atrial fibrillation. ABDOMEN: Soft and nontender. EXTREMITIES: Normal. NEUROLOGICAL: He is intact. IMPRESSION: 1. Syncopal episode. 2. Atrial fibrillation with rapid ventricular response. 3. Chronic obstructive pulmonary disease. 4. . PLAN: 1. Bedrest. 2. IV fluids. 3. Serial EKGs and enzymes. 4. Telemetry. 5. etiology of syncope. MMODL / IJN: [id number] /
--- NOTE | 2022-01-24 00:39 | DS ---
DISCHARGE SUMMARY CHIEF COMPLAINT: Syncopal episode with atrial fibrillation and RVR. HISTORY OF PRESENT ILLNESS AND PHYSICAL EXAMINATION: Details of this man's history and physical can be found in the initial workup. LABORATORY STUDIES: While he was in the hospital, he had laboratory studies, details of which can be found in the laboratory section of his chart. COURSE IN THE HOSPITAL: After admission, he was placed on bedrest, started on intravenous fluids and telemetry. He was to be worked up for his rapid response to his atrial fibrillation as well as syncope, but then he signed himself out AMA on the . FINAL DIAGNOSES: 1. Syncopal episode. 2. Atrial fibrillation with rapid ventricular response. 3. Chronic obstructive pulmonary disease. OPERATIONS: None. CONSULTATIONS: None. CONDITION: He is improved. [id number] / IJN: [id number] /
[2022-01-24] MEDS ORDERED: ERGOCALCIFEROL 1,250 MCG (50,000 IU) CAPSULE PO SCH (09:00)
== END 2022-01-23 09:43 | disposition left against medical advice (07) ==
LOC: EC 02:15 → 6NMEDSUR 08:22
PROVIDERS: ADMIT Family Medicine; ATTEND Family Medicine
DX: R55 Syncope and collapse (principal); I95.9 Hypotension, unspecified; I48.19 Other persistent atrial fibrillation; J44.9 Chronic obstructive pulmonary disease, unspecified; I25.10 Atherosclerotic heart disease of native coronary artery without angina pectoris; M79.7 Fibromyalgia; K21.9 Gastro-esophageal reflux disease without esophagitis; E78.5 Hyperlipidemia, unspecified; I10 Essential (primary) hypertension; I25.2 Old myocardial infarction; F41.0 Panic disorder [episodic paroxysmal anxiety]; F31.9 Bipolar disorder, unspecified; F17.200 Nicotine dependence, unspecified, uncomplicated; Z95.5 Presence of coronary angioplasty implant and graft; Z79.01 Long term (current) use of anticoagulants; Z79.82 Long term (current) use of aspirin; Z79.899 Other long term (current) drug therapy; Z82.49 Family history of ischemic heart disease and other diseases of the circulatory system; Z80.1 Family history of malignant neoplasm of trachea, bronchus and lung
CPT/HCPCS: 96360; 96361; 99285; 36415; 93005; 85379; 83880; 80061; 80053; 83735; 84484; 85025; 85610; 85730; 71045; 72125; 70450; G0378 ×2; S4990

== ENCOUNTER 2022-12-12 16:40 | Observation (INO) | payer MEDICARE, OTHER ==
[2022-12-12] MEDS ORDERED: NITROGLYCERIN OINT 1 INCH/GM PACKET TOPICAL STA (16:44)
--- NOTE | 2022-12-12 16:46 | ED ---
General Adult HPI - General Stated complaint: AFIB Time Seen by Provider: 12/12/22 16:40 Source: patient, RN notes reviewed, old records reviewed - History of Present Illness Initial comments: This is a 57-year-old male with past medical history significant for atrial fibrillation and is on eliquis for that. Patient also has a history of a heart attack with stent placement. Patient's also states he might have a history of congestive heart failure. Patient states couple days ago started having intermittent chest pain it's very minimal and went away fairly quickly so he didn't concern himself with it. Patient states today the chest pain was worse and called EMS because it got progressively worse he began to sweat short of breath. Patient states he has high blood pressure high cholesterol and continues to smoke and states he is a borderline diabetic. Patient states he was unaware that his heart was racing but EMS stated that they had it was heart rate anywhere from 110-145. Patient denies lightheadedness or dizziness. Patient denies any abdominal pain. - Related Data Home Medications Medication Instructions Recorded Confirmed Metoprolol Succinate [Toprol XL] 50 mg PO DAILY 10/30/20 01/22/22 Pregabalin [Lyrica] 100 mg PO TID 10/30/20 01/22/22 lisinopriL [Prinivil] 10 mg PO DAILY 10/30/20 01/22/22 Aspirin 81 mg PO DAILY 01/28/21 01/22/22 Cyclobenzaprine [Flexeril] 10 mg PO BID PRN 01/28/21 01/22/22 Furosemide [Lasix] 20 mg PO DAILY 01/28/21 01/22/22 HYDROcodone/APAP 7.5-325MG [[place] 1 tab PO TID PRN 01/28/21 01/22/22 7.5-325] Nitroglycerin Sl Tabs [Nitrostat] 0.4 mg SL Q5M PRN 01/28/21 01/22/22 Cranberry Fruit Extract [Cranberry] 500 mg PO DAILY 01/22/22 01/22/22 Docusate [Colace] 100 mg PO DAILY 01/22/22 01/22/22 Famotidine 20 mg PO DAILY 01/22/22 01/22/22 Milk Thistle 150 mg PO DAILY 01/22/22 01/22/22 Turmeric Root Extract [Turmeric] 500 mg PO DAILY 01/22/22 01/22/22 dilTIAZem HCL 30 mg PO BID 01/22/22 01/22/22 Previous Rx's Medication Instructions Recorded Apixaban [Eliquis] 5 mg PO BID #20 tab 11/01/20 Atorvastatin [Lipitor] 40 mg PO DAILY #30 tab 11/01/20 Allergies Allergy/AdvReac Type Severity Reaction Status Date / Time No Known Allergies Allergy Verified 12/12/22 16:47 Review of Systems ROS Statement: Those systems with pertinent positive or pertinent negative responses have been documented in the HPI. ROS Other: All systems not noted in ROS Statement are negative. Past Medical History Past Medical History: Atrial Fibrillation, Coronary Artery Disease (CAD), Chest Pain / Angina, Fibromyalgia, GERD/Reflux, Hyperlipidemia, Hypertension, Myocardial Infarction ([place]) Additional Past Medical History / Comment(s): restlesss leg syndrome, sleep study pt states "the results were really really bad." Pt states he has some blockage in his urethra. Pt states he may have "noncomplicated type 2 diabetes" and takes no diabetic medications at home. DDD. Last Myocardial Infarction Date:: 02/26/2019 History of Any Multi-Drug Resistant Organisms: None Reported Past Surgical History: Heart Catheterization, Heart Catheterization With Stent, Orthopedic Surgery Additional Past Surgical History / Comment(s): Pt states "I have had a nose job.". cataracts sx Past Anesthesia/Blood Transfusion Reactions: No Reported Reaction Additional Past Anesthesia/Blood Transfusion Reaction / Comment(s): Patient states he has never had a blood transfusion. no reaction to anesthesia Date of Last Stent Placement:: 03/29/19 Past Psychological History: Anxiety, Bipolar, Depression, Panic Disorder Smoking Status: Current some day smoker Past Alcohol Use History: None Reported Past Drug Use History: Marijuana - Past Family History Father Family Medical History: AFIB, Coronary Artery Disease (CAD) Additional Family Medical History / Comment(s): pacemaker, blood thinners Mother Family Medical History: Cancer Additional Family Medical History / Comment(s): lung cancer Sister(s) Family Medical History: Cancer Additional Family Medical History / Comment(s): at 50 from cancer, unsure of type General Exam - General Exam Comments Initial Comments: GENERAL: Patient is well-developed and well-nourished. Patient is nontoxic and well- hydrated and is in mild distress. ENT: Neck is soft and supple. No significant lymphadenopathy is noted. Oropharynx is clear. Moist mucous membranes. Neck has full range of motion without eliciting any pain. EYES: The sclera were anicteric and conjunctiva were pink and moist. Extraocular movements were intact and pupils were equal round and reactive to light. Eyelids were unremarkable. PULMONARY: Unlabored respirations. Good breath sounds bilaterally. No audible rales rhonchi or wheezing was noted. CARDIOVASCULAR: There is a regular rate and rhythm without any murmurs gallops or rubs. ABDOMEN: Soft and nontender with normal bowel sounds. SKIN: Skin is clear with no lesions or rashes and otherwise unremarkable. NEUROLOGIC: Patient is alert and oriented x3. Cranial nerves II through XII are grossly intact. Motor and sensory are also intact. Normal speech, volume and content. Symmetrical smile. MUSCULOSKELETAL: Normal extremities with adequate strength and full range of motion. LYMPHATICS: No significant lymphadenopathy is noted PSYCHIATRIC: Normal psychiatric evaluation. Course Vital Signs 12/12/22 12/12/22 16:42 17:25 Temperature 97.7 F Pulse Rate 112 H 90 Respiratory 178 H 18 Rate Blood Pressure 118/79 107/85 O2 Sat by Pulse 96 98 Oximetry Medical Decision Making - Medical Decision Making EKG was interpreted by myself. EKG shows atrial fibrillation with rapid ventricular response at 119 bpm QRS is 70 QT interval 324 QTC is 394. Patient's EKG shows no ST segment elevation or depression Was pt. sent in by a medical professional or institution ([facility], OPHTHALMIC AIDE, urgent care, hospital, or prison...) When possible be specific @ -No Did you speak to anyone other than the patient for history (EMS, parent, family, police, friend...)? What history was obtained from this source @ -No Did you review nursing and triage notes (agree or disagree)? Why? @ -I reviewed and agree with nursing and triage notes Were old charts reviewed (outside hosp., previous admission, EMS record, old EKG, old radiological studies, urgent care reports/EKG's, prison records)? Report findings @ -I reviewed prior charts department this patient Differential Diagnosis (chest pain, altered mental status, abdominal pain women, abdominal pain men, vaginal bleeding, weakness, fever, dyspnea, syncope, headache, dizziness, GI bleed, back pain, seizure, CVA, palpatations, mental health, musculoskeletal)? @ -Differential Chest Pain: Stable Angina, Unstable Angina, STEMI, NSTEMI Aortic Dissection, Pneumothorax, Musculoskeletal, Esophageal Spasm GERD, Cholecystitis, Pancreatitis, Zoster, thi s is not meant to be an all-inclusive list. EKG interpreted by me (3pts min.). @ -As above X-rays interpreted by me (1pt min.). @ -Chest x-ray shows no acute abnormality CT interpreted by me (1pt min.). @ -None done U/S interpreted by me (1pt. min.). @ -None done What testing was considered but not performed or refused? (CT, X-rays, U/S, labs)? Why? @ -None What meds were considered but not given or refused? Why? @ -None Did you discuss the management of the patient with other professionals (professionals i.e. , PA, OPHTHALMIC AIDE, lab, RT, psych nurse, medical social worker, nursery laborer, teacher, home school liaison officer, case resource manager)? Give summary @ -No Was smoking cessation discussed for >3mins.? @ -Yes Was critical care preformed (if so, how long)? @ -No Were there social determinants of health that impacted care today? How? (Homelessness, low income, unemployed, alcoholism, drug addiction, transportation, low edu. Level, literacy, decrease access to med. care, group home, rehab)? @ -No Was there de-escalation of care discussed even if they declined (Discuss DNR or withdrawal of care, Hospice)? DNR status @ -No What co-morbidities impacted this encounter? (DM, HTN, Smoking, COPD, CAD, Cancer, CVA, ARF, Chemo, Hep., AIDS, mental health diagnosis, sleep apnea, morbid obesity)? @ -None Was patient admitted / discharged? Hospital course, mention meds given and route, prescriptions, significant lab abnormalities, going to OR and other pertinent info. @ -Hypertension continue to have intermittent chest pain throughout his ED course. Patient was given Nitropaste. Patient's lab work was essentially normal as was x-ray. I spoke with sound physician's agreed to admit the patient I admitted the patient I wrote admitting orders Undiagnosed new problem with uncertain prognosis? @ -No Drug Therapy requiring intensive monitoring for toxicity (Heparin, Nitro, Insulin, Cardizem)? @ -No Were any procedures done? @ -No Diagnosis/symptom? @ -Chest pain Acute, or Chronic, or Acute on Chronic? @ -Acute Uncomplicated (without systemic symptoms) or Complicated (systemic symptoms)? @ -Complicated Side effects of treatment? @ -No Exacerbation, Progression, or Severe Exacerbation? @ -No Poses a threat to life or bodily function? How? (Chest pain, [place], [place], pneumonia, PE, COPD, DKA, ARF, appy, cholecystitis, CVA, Diverticulitis, Homicidal, Suicidal, threat to staff... and all critical care pts) @ -Yes this could lead to an [place] which could lead to end organ dysfunction - Lab Data Result diagrams: 12/12/22 17:23 12/12/22 17: Lab Results 12/12/22 12/12/22 12/12/22 Range/Units 17:23 17:23 17:23 WBC 6.5 (3.8-10.6) k/uL RBC 5.40 (4.30-5.90) m/uL Hgb 16.3 (13.0-17.5) gm/dL Hct 48.4 (39.0-53.0) % MCV 89.5 (80.0-100.0) fL MCH 30.1 (25.0-35.0) pg MCHC 33.6 (31.0-37.0) g/dL RDW 13.4 (11.5-15.5) % Plt Count 319 (150-450) k/uL MPV 7.5 Neutrophils % 65 % Lymphocytes % 25 % Monocytes % 7 % Eosinophils % 1 % Basophils % 0 % Neutrophils # 4.2 (1.3-7.7) k/uL Lymphocytes # 1.6 (1.0-4.8) k/uL Monocytes # 0.5 (0-1.0) k/uL Eosinophils # 0.1 (0-0.7) k/uL Basophils # 0.0 (0-0.2) k/uL PT 11.6 (9.0-12.0) sec INR 1.1 (<1.2) APTT 26.6 (22.0-30.0) sec Sodium 137 (137-145) mmol/L Potassium 4.7 (3.5-5.1) mmol/L Chloride 106 (98-107) mmol/L Carbon Dioxide 18 L (22-30) mmol/L Anion Gap 13 mmol/L BUN 23 H (9-20) mg/dL Creatinine 1.19 (0.66-1.25) mg/dL Est GFR (CKD-EPI)AfAm 77 (>60 ml/min/1.73 sqM) Est GFR (CKD-EPI)NonAf 67 (>60 ml/min/1.73 sqM) Glucose 90 (74-99) mg/dL Calcium 9.6 (8.4-10.2) mg/dL Magnesium 2.4 H (1.6-2.3) mg/dL Total Bilirubin 0.9 (0.2-1.3) mg/dL AST 49 (17-59) U/L ALT 35 (4-49) U/L Alkaline Phosphatase 90 (38-126) U/L Troponin I (0.000-0.034) ng/mL NT-Pro-B Natriuret Pep 3050 pg/mL Total Protein 7.1 (6.3-8.2) g/dL Albumin 4.5 (3.5-5.0) g/dL 12/12/22 Range/Units 17:23 WBC (3.8-10.6) k/uL RBC (4.30-5.90) m/uL Hgb (13.0-17.5) gm/dL Hct (39.0-53.0) % MCV (80.0-100.0) fL MCH (25.0-35.0) pg MCHC (31.0-37.0) g/dL RDW (11.5-15.5) % Plt Count (150-450) k/uL MPV Neutrophils % % Lymphocytes % % Monocytes % % Eosinophils % % Basophils % % Neutrophils # (1.3-7.7) k/uL Lymphocytes # (1.0-4.8) k/uL Monocytes # (0-1.0) k/uL Eosinophils # (0-0.7) k/uL Basophils # (0-0.2) k/uL PT (9.0-12.0) sec INR (<1.2) APTT (22.0-30.0) sec Sodium (137-145) mmol/L Potassium (3.5-5.1) mmol/L Chloride (98-107) mmol/L Carbon Dioxide (22-30) mmol/L Anion Gap mmol/L BUN (9-20) mg/dL Creatinine (0.66-1.25) mg/dL Est GFR (CKD-EPI)AfAm (>60 ml/min/1.73 sqM) Est GFR (CKD-EPI)NonAf (>60 ml/min/1.73 sqM) Glucose (74-99) mg/dL Calcium (8.4-10.2) mg/dL Magnesium (1.6-2.3) mg/dL Total Bilirubin (0.2-1.3) mg/dL AST (17-59) U/L ALT (4-49) U/L Alkaline Phosphatase (38-126) U/L Troponin I 0.014 (0.000-0.034) ng/mL NT-Pro-B Natriuret Pep pg/mL Total Protein (6.3-8.2) g/dL Albumin (3.5-5.0) g/dL Disposition Clinical Impression: Chest pain Disposition: ADMITTED IP TO THIS HOSP Referrals: None,Stated [Primary Care Provider] - 1-2 days Time of Disposition: 18:36
--- NOTE | 2022-12-12 17:09 | XR ---
EXAMINATION TYPE: XR chest 2V DATE OF EXAM: 12/12/2022 5:03 PM COMPARISON: Chest radiographs from 01/22/2022 TECHNIQUE: XR chest 2V Frontal and lateral views of the chest. CLINICAL INDICATION:Male, 57 years old with history of Chest Pain; FINDINGS: Lungs/Pleura: There is no evidence of pleural effusion, focal consolidation, or pneumothorax. Pulmonary vascularity: Unremarkable. Heart/mediastinum: Cardiomediastinal silhouette is unremarkable. Musculoskeletal: No acute osseous pathology. IMPRESSION: No acute cardiopulmonary disease/process.
[2022-12-12 17:34] LABS: Basophils % (A) 0 %; Eosinophils # (A) 0.1 k/uL (0-0.7); Eosinophils % (A) 1 %; HCT 48.4 % (39.0-53.0); HGB 16.3 gm/dL (13.0-17.5); Lymphocytes # (A) 1.6 k/uL (1.0-4.8); Lymphocytes % (A) 25 %; MCH 30.1 pg (25.0-35.0); MCHC 33.6 g/dL (31.0-37.0); MCV 89.5 fL (80.0-100.0); Mean Platelet Volume 7.5; Monocytes # (A) 0.5 k/uL (0-1.0); Monocytes % (A) 7 %; Neutrophils # (A) 4.2 k/uL (1.3-7.7); Neutrophils % (A) 65 %; Platelet Count 319 k/uL (150-450); RDW 13.4 % (11.5-15.5); WBC 6.5 k/uL (3.8-10.6)
[2022-12-12 17:46] LABS: INR 1.1 (<1.2); Partial Thromboplastin Time 26.6 sec (22.0-30.0); Prothrombin Time 11.6 sec (9.0-12.0)
[2022-12-12 17:48] LABS: ALT 35 U/L (4-49); AST 49 U/L (17-59); African American GFR (CKD) 77 (>60 ml/min/1.73 sqM); Albumin 4.5 g/dL (3.5-5.0); Alkaline Phosphatase 90 U/L (38-126); Anion Gap 13 mmol/L; Blood Urea Nitrogen 23 mg/dL (9-20); Calcium 9.6 mg/dL (8.4-10.2); Carbon Dioxide 18 mmol/L (22-30); Chloride 106 mmol/L (98-107); Glucose 90 mg/dL (74-99); Magnesium 2.4 mg/dL (1.6-2.3); Non-African American GFR(CKD) 67 (>60 ml/min/1.73 sqM); Potassium 4.7 mmol/L (3.5-5.1); Sodium 137 mmol/L (137-145); Total Bilirubin 0.9 mg/dL (0.2-1.3); Total Protein 7.1 g/dL (6.3-8.2)
[2022-12-12 17:55] LABS: NT-Pro-B-Type Natriuretic Pept 3050 pg/mL
[2022-12-12] MEDS ORDERED: NITROGLYCERIN SL TABS 0.4 MG TAB SUBLINGUAL PRN (18:39)
[2022-12-12] MEDS: NICOTINE 21MG/24HR PATCH TRANSDERM SCH (22:13)
[2022-12-12] MEDS: NITROGLYCERIN OINT 1 INCH/GM PACKET TOPICAL SCH (22:13)
[2022-12-12] MEDS: oxyCODONE-APAP 7.5-325MG 1 EACH TAB PO PRN (22:13)
--- NOTE | 2022-12-13 02:57 | P.HPIM ---
History of Present Illness H&P Date: 12/12/22 Chief Complaint: chest pain 57-year-old male with atrial fibrillation, CAD status post stents He is coming in for evaluation of retrosternal chest pain that started while he was stressing out looking for his glasses walking back and forth on the street under the hot sun, where he started to profuse sweating and having some heavy breathing and started experiencing chest pressure with burning pain retrosternally nonradiating not associated with any nausea vomiting denies any coughing denies any fevers or chills denies any abdominal pain or changes in bowel or urinary habits denies any GI bleeding this pain subsided after a few minutes but then an hour later he got another episode which subsided with rest and then he got another episode after which she got concerned and decided to come in for evaluation. He called EMS who told him and Route that he was having rapid heart rate he was not feeling any palpitations dizziness lightheadedness nausea or vomiting. He does report history of A. fib for which she takes Eliquis He also reports episodes of chest pain. Days ago but was milder form and he didn't think much of it and did not seek medical care for that Patient otherwise admits to tobacco smoking but denies any drugs or alcohol review of systems Pertinent positives as noted in HPI. All other systems were reviewed and are negative on exam Constitutional: No acute distress, conversant, pleasant Eyes: Anicteric sclerae, moist conjunctiva, Pupils equal round reactive to light ENMT: NC/AT Oropharynx clear, no erythema, or exudates Neck: Supple, no masses, or JVD No carotid bruits No thyromegaly Lungs: Clear to auscultation Clear to percussion Normal respiratory effort, no accessory muscle use Cardiovascular: Heart irregular in rate and rhythm, No murmurs, gallops, or rubs No peripheral edema Abdominal: Soft Nontender, no guarding, rebound or rigidity Abdomen moving with respiration Normoactive bowel sounds No hepatomegaly, No splenomegaly No palpable mass No abdominal wall hernia noted Skin: Normal temperature, tone, texture, turgor No induration No subcutaneous nodules No rash, lesions No ulcers Extremities: No digital cyanosis No clubbing Pedal pulses intact and symmetrical Radial pulses intact and symmetrical No calf tenderness Psychiatric: Alert and oriented to person, place and time Appropriate affect fair judgement Neuro Muscles Strength 5/5 in all 4 extremities Sensation to light touch grossly present throughout Cranial nerves II-XII grossly intact Lymphatics: no palpable cervical or supraclavicular lymph nodes Past Medical History Past Medical History: Atrial Fibrillation, Coronary Artery Disease (CAD), Chest Pain / Angina, Fibromyalgia, GERD/Reflux, Hyperlipidemia, Hypertension, Myocardial Infarction ([place]) Additional Past Medical History / Comment(s): restlesss leg syndrome, sleep study pt states "the results were really really bad." Pt states he has some blockage in his urethra. Pt states he may have "noncomplicated type 2 diabetes" and takes no diabetic medications at home. DDD. Last Myocardial Infarction Date:: 02/26/2019 History of Any Multi-Drug Resistant Organisms: None Reported Past Surgical History: Heart Catheterization, Heart Catheterization With Stent, Orthopedic Surgery Additional Past Surgical History / Comment(s): Pt states "I have had a nose job.". cataracts sx Past Anesthesia/Blood Transfusion Reactions: No Reported Reaction Additional Past Anesthesia/Blood Transfusion Reaction / Comment(s): Patient states he has never had a blood transfusion. no reaction to anesthesia Date of Last Stent Placement:: 03/29/19 Past Psychological History: Anxiety, Bipolar, Depression, Panic Disorder Smoking Status: Current every day smoker Past Alcohol Use History: None Reported Past Drug Use History: Marijuana Additional Drug Use History / Comment(s): patient states he smokes before bed - Past Family History Father Family Medical History: AFIB, Coronary Artery Disease (CAD) Additional Family Medical History / Comment(s): pacemaker, blood thinners Mother Family Medical History: Cancer Additional Family Medical History / Comment(s): lung cancer Sister(s) Family Medical History: Cancer Additional Family Medical History / Comment(s): at 50 from cancer, unsure of type Medications and Allergies Home Medications Medication Instructions Recorded Confirmed Type Pregabalin [Lyrica] 100 mg PO TID 10/30/20 12/12/22 History lisinopriL [Prinivil] 10 mg PO DAILY 10/30/20 12/12/22 History Apixaban [Eliquis] 5 mg PO BID #20 tab 11/01/20 12/12/22 Rx Aspirin 81 mg PO DAILY 01/28/21 12/12/22 History Cyclobenzaprine [Flexeril] 10 mg PO BID 01/28/21 12/12/22 History Furosemide [Lasix] 20 mg PO DAILY 01/28/21 12/12/22 History Nitroglycerin Sl Tabs [Nitrostat] 0.4 mg SL Q5M PRN 01/28/21 12/12/22 History Cranberry Fruit Extract [Cranberry] 500 mg PO DAILY 01/22/22 12/12/22 History Docusate [Colace] 100 mg PO DAILY 01/22/22 12/12/22 History Famotidine 20 mg PO DAILY 01/22/22 12/12/22 History Milk Thistle 150 mg PO DAILY 01/22/22 12/12/22 History Turmeric Root Extract [Turmeric] 500 mg PO DAILY 01/22/22 12/12/22 History Atorvastatin [Lipitor] 40 mg PO HS 12/12/22 12/12/22 History Flaxseed Oil 1 cap PO DAILY 12/12/22 12/12/22 History Metoprolol Succinate (ER) [Toprol 100 mg PO DAILY 12/12/22 12/12/22 History Xl] methocarbamoL [Robaxin-750] 750 mg PO BID PRN 12/12/22 12/12/22 History oxyCODONE-APAP 7.5-325MG [Percocet 1 tab PO TID 12/12/22 12/12/22 History 7.5-325 mg] Allergies Allergy/AdvReac Type Severity Reaction Status Date / Time No Known Allergies Allergy Verified 12/12/22 19:47 Physical Exam Vitals: Vital Signs Temp Pulse Pulse Resp BP BP Pulse Ox 12/13/22 00:00 98.1 F 85 19 117/72 95 12/12/22 20:48 98.0 F 80 19 143/81 95 12/12/22 20:00 110 H 16 110/71 98 12/12/22 19:22 77 12/12/22 19:00 85 21 107/85 95 12/12/22 18:00 101 H 21 107/85 96 12/12/22 17:25 90 18 107/85 98 12/12/22 16:42 97.7 F 112 H 18 118/79 96 Intake and Output 12/12/22 12/12/22 12/13/22 14:59 22:59 06:59 Other: Voiding Method Toilet Weight 78.925 kg Results CBC & Chem 7: 12/12/22 17:23 12/12/22 17:23 Labs: Abnormal Lab Results - Last 24 Hours (Table) 12/12/22 Range/Units 17:23 Carbon Dioxide 18 L (22-30) mmol/L BUN 23 H (9-20) mg/dL Magnesium 2.4 H (1.6-2.3) mg/dL Thrombosis Risk Factor Assmnt - Choose All That Apply Any of the Below Risk Factors Present?: Yes Each Factor Represents 1 point: Age 41-60 years, Obesity (BMI >25) Thrombosis Risk Factor Assessment Total Risk Factor Score: 2 Thrombosis Risk Factor Assessment Level: Low Risk Assessment and Plan Assessment: 57-year-old male with CAD status post stent, paroxysmal A. fib coming in for recurrent episodes of chest pain and discussed the case with the ED doctor and accepted the admission for chest pain to rule out acute coronary syndrome with anticipated length of stay less than 2 midnights Chest pain with typical features rule out acute coronary syndrome Troponins negative 2 EKG no acute distress changes, showing A. fib with RVR Cardiac monitoring Monitor vital signs Continue with aspirin and statin Continue with Eliquis Cardiology consult Monitor troponins Blood work reviewed Hemoglobin 16.3, white count 6.5 unremarkable BUN 23 creatinine 1.19, sodium 137 potassium 4.7 Chest x-ray no acute pathology Full code DVT prophylaxis on Eliquis for A. fib
[2022-12-13] MEDS: NITROGLYCERIN OINT 1 INCH/GM PACKET TOPICAL SCH (04:44)
[2022-12-13] MEDS: oxyCODONE-APAP 7.5-325MG 1 EACH TAB PO PRN ×2 (07:28→15:37)
[2022-12-13] MEDS: NICOTINE 21MG/24HR PATCH TRANSDERM SCH (07:29)
[2022-12-13] MEDS: PREGABALIN 100 MG CAP PO SCH ×2 (07:29→15:37)
[2022-12-13 07:39] VITALS: PULSE 101
[2022-12-13] MEDS ORDERED: ASPIRIN 81 MG PO SCH (09:00)
[2022-12-13] MEDS ORDERED: FAMOTIDINE 20 MG TAB PO SCH (09:00)
[2022-12-13] MEDS ORDERED: APIXABAN 5 MG TAB PO SCH (09:00)
[2022-12-13] MEDS ORDERED: ASPIRIN 325 MG TAB PO SCH (09:00)
[2022-12-13] MEDS ORDERED: CYCLOBENZAPRINE 10 MG TAB PO SCH (09:00)
[2022-12-13] MEDS ORDERED: lisinopriL 10 MG TAB PO SCH (09:00)
[2022-12-13] MEDS ORDERED: METOPROLOL SUCCINATE (ER) 100 MG TAB.ER.24H PO SCH ×2 (09:00→21:00)
[2022-12-13 11:09] LABS: Chol/HDL Ratio 3.12 Ratio; LDL Cholesterol,Calculated 73.5 mg/dL (0.0-131.0)
--- NOTE | 2022-12-13 11:19 | P.CRDCN ---
History of Present Illness History of present illness: HISTORY OF PRESENT ILLNESS: This is a 57-year-old male with a past medical history significant for coronary artery disease with previous stenting, atrial fibrillation, hypertension, hyperlipidemia, and diabetes. Patient follows in the office with Dr. Biggs. We have been asked to see the patient in consultation for chest pain. Patient examined at the bedside. Patient states he was camping for the holiday weekend. He states that he lost his glasses and was outside in the heat for 2 or 3 hours walking around trying to find them. He states that he was very anxious because of this. He reports having an episode of right-sided chest pain that felt like a burning sensation and also pressure. He states the pain lasted for a few seconds and then went away. He states about an hour later the pain came back once again only lasted for a few seconds. He denied any nausea or vomiting. He reports feeling thirsty at that time. He states he did feel short of breath because he was outside walking for such a long time. The patient denies having any chest pain or pressure since coming to the hospital. The patient was found to be in A. fib with RVR. This morning he remains in atrial fibrillation with a heart rate around 120. * EKG reveals A. fib with RVR * Chest xray negative for acute process * Current home cardiac medications include Eliquis 5mg BID, aspirin 81 mg daily, Lipitor 40 mg at night, Lasix 20 mg daily, metoprolol succinate 100 mg daily, lisinopril 10 mg daily * Most recent echocardiogram obtained in June 2022 revealed normal EF, mild to moderate MR * Patient underwent Lexiscan stress test in September 2022 which was negative for ischemia * Cardiac catheterization history: June 2022 revealing normal EF, patent stent in the RCA. REVIEW OF SYSTEMS: At the time of my exam: CONSTITUTIONAL: Denies fever or chills. HEENT: Denies blurred vision, vision changes, or eye pain. Denies hemoptysis CARDIOVASCULAR: Denies chest pain. Denies orthopnea. Denies PND. Denies palpitations RESPIRATORY: Denies shortness of breath. GASTROINTESTINAL: Denies abdominal pain. Denies nausea or vomiting. HEMATOLOGIC: Denies bleeding disorders. GENITOURINARY: Denies any blood in urine. SKIN: Denies pruitis. Denies rash. PHYSICAL EXAM: VITAL SIGNS: Reviewed. GENERAL: Well-developed in no acute distress. HEENT: Head is normocephalic. Pupils are equal, round. Sclerae anicteric. Mucous membranes of the mouth are moist. Neck supple. No JVD or thyromegaly LUNGS: Respirations even and unlabored. Lungs essentially clear to auscultation bilaterally. HEART: Tachycardic. Irregular rate and rhythm. S1 and S2 heard. Systolic murmur noted ABDOMEN: Soft. Nondistended. Nontender. EXTREMITIES: Normal range of motion. No clubbing or cyanosis. Peripheral pulses intact. No lower extremity edema NEUROLOGIC: Awake and alert. Oriented x 3. ASSESSMENT: Chest pain, atypical, troponin negative 3 Persistent atrial fibrillation with mild RVR Coronary artery disease with previous stenting of the mid RCA Hypertension Hyperlipidemia Diabetes Nicotine dependence, patient smokes 1 pack per day PLAN: An acute coronary event has been ruled out Resume home cardiac medications Increase metoprolol succinate to 100 mg twice a day Continue telemetry monitoring It is noted that the patient had an echocardiogram in June of this year and a stress test in September of this year in the office. No need to repeat either at this time. Patient may be discharged home today from a cardiac standpoint if his heart rates are controlled Patient to follow up post discharge with Dr. Biggs Nurse practitioner note has been reviewed by physician. Signing provider agrees with the documented findings, assessment, and plan of care. Past Medical History Past Medical History: Atrial Fibrillation, Coronary Artery Disease (CAD), Chest Pain / Angina, Fibromyalgia, GERD/Reflux, Hyperlipidemia, Hypertension, Myocardial Infarction ([place]) Additional Past Medical History / Comment(s): restlesss leg syndrome, sleep study pt states "the results were really really bad." Pt states he has some blockage in his urethra. Pt states he may have "noncomplicated type 2 diabetes" and takes no diabetic medications at home. DDD. Last Myocardial Infarction Date:: 02/26/2019 History of Any Multi-Drug Resistant Organisms: None Reported Past Surgical History: Heart Catheterization, Heart Catheterization With Stent, Orthopedic Surgery Additional Past Surgical History / Comment(s): Pt states "I have had a nose eramso b.". cataracts sx Past Anesthesia/Blood Transfusion Reactions: No Reported Reaction Additional Past Anesthesia/Blood Transfusion Reaction / Comment(s): Patient states he has never had a blood transfusion. no reaction to anesthesia Date of Last Stent Placement:: 03/29/19 Past Psychological History: Anxiety, Bipolar, Depression, Panic Disorder Smoking Status: Current every day smoker Past Alcohol Use History: None Reported Past Drug Use History: Marijuana Additional Drug Use History / Comment(s): patient states he smokes before bed - Past Family History Father Family Medical History: AFIB, Coronary Artery Disease (CAD) Additional Family Medical History / Comment(s): pacemaker, blood thinners Mother Family Medical History: Cancer Additional Family Medical History / Comment(s): lung cancer Sister(s) Family Medical History: Cancer Additional Family Medical History / Comment(s): at 50 from cancer, unsure of type Medications and Allergies Home Medications Medication Instructions Recorded Confirmed Type Pregabalin [Lyrica] 100 mg PO TID 10/30/20 12/12/22 History lisinopriL [Prinivil] 10 mg PO DAILY 10/30/20 12/12/22 History Apixaban [Eliquis] 5 mg PO BID #20 tab 11/01/20 12/12/22 Rx Aspirin 81 mg PO DAILY 01/28/21 12/12/22 History Cyclobenzaprine [Flexeril] 10 mg PO BID 01/28/21 12/12/22 History Furosemide [Lasix] 20 mg PO DAILY 01/28/21 12/12/22 History Nitroglycerin Sl Tabs [Nitrostat] 0.4 mg SL Q5M PRN 01/28/21 12/12/22 History Cranberry Fruit Extract [Cranberry] 500 mg PO DAILY 01/22/22 12/12/22 History Docusate [Colace] 100 mg PO DAILY 01/22/22 12/12/22 History Famotidine 20 mg PO DAILY 01/22/22 12/12/22 History Milk Thistle 150 mg PO DAILY 01/22/22 12/12/22 History Turmeric Root Extract [Turmeric] 500 mg PO DAILY 01/22/22 12/12/22 History Atorvastatin [Lipitor] 40 mg PO HS 12/12/22 12/12/22 History Flaxseed Oil 1 cap PO DAILY 12/12/22 12/12/22 History Metoprolol Succinate (ER) [Toprol 100 mg PO DAILY 12/12/22 12/12/22 History Xl] methocarbamoL [Robaxin-750] 750 mg PO BID PRN 12/12/22 12/12/22 History oxyCODONE-APAP 7.5-325MG [Percocet 1 tab PO TID 12/12/22 12/12/22 History 7.5-325 mg] Allergies Allergy/AdvReac Type Severity Reaction Status Date / Time No Known Allergies Allergy Verified 12/12/22 19:47 Physical Exam Vitals: Vital Signs Temp Pulse Pulse Resp BP BP Pulse Ox 12/13/22 07:26 97.6 F 101 H 16 120/79 97 12/13/22 04:46 97.9 F 67 19 147/97 100 12/13/22 00:00 98.1 F 85 19 117/72 95 12/12/22 20:48 98.0 F 80 19 143/81 95 12/12/22 20:00 110 H 16 110/71 98 12/12/22 19:22 77 12/12/22 19:00 85 21 107/85 95 12/12/22 18:00 101 H 21 107/85 96 12/12/22 17:25 90 18 107/85 98 12/12/22 16:42 97.7 F 112 H 18 118/79 96 Intake and Output 12/12/22 12/13/22 12/13/22 22:59 06:59 14:59 Other: Voiding Method Toilet # Voids 2 Weight 78.925 kg Results 12/12/22 17:23 12/12/22 17:23 Cardiac Enzymes 12/12/22 12/12/22 12/12/22 Range/Units 17:23 17:23 20:49 AST 49 (17-59) U/L Troponin I 0.014 0.018 (0.000-0.034) ng/mL 12/12/22 Range/Units 23:45 AST (17-59) U/L Troponin I 0.014 (0.000-0.034) ng/mL Coagulation 12/12/22 Range/Units 17:23 PT 11.6 (9.0-12.0) sec APTT 26.6 (22.0-30.0) sec CBC 12/12/22 Range/Units 17:23 WBC 6.5 (3.8-10.6) k/uL RBC 5.40 (4.30-5.90) m/uL Hgb 16.3 (13.0-17.5) gm/dL Hct 48.4 (39.0-53.0) % Plt Count 319 (150-450) k/uL Comprehensive Metabolic Panel 12/12/22 Range/Units 17:23 Sodium 137 (137-145) mmol/L Potassium 4.7 (3.5-5.1) mmol/L Chloride 106 (98-107) mmol/L Carbon Dioxide 18 L (22-30) mmol/L BUN 23 H (9-20) mg/dL Creatinine 1.19 (0.66-1.25) mg/dL Glucose 90 (74-99) mg/dL Calcium 9.6 (8.4-10.2) mg/dL AST 49 (17-59) U/L ALT 35 (4-49) U/L Alkaline Phosphatase 90 (38-126) U/L Total Protein 7.1 (6.3-8.2) g/dL Albumin 4.5 (3.5-5.0) g/dL Current Medications Generic Name Dose Route Start Last Admin Trade Name Nielsq PRN Reason Stop Dose Admin Apixaban 5 mg 12/13/22 09:00 12/13/22 07:29 Apixaban 5 Mg Tab PO 5 mg BID [facility] Administration Protocol Aspirin 81 mg 12/13/22 09:00 12/13/22 07:28 Aspirin 81 Mg PO 81 mg DAILY HEIDI Administration Atorvastatin Calcium 40 mg 12/13/22 21:00 Atorvastatin 40 Mg Tab PO [facility] Cyclobenzaprine HCl 10 mg 12/13/22 09:00 12/13/22 07:28 Cyclobenzaprine 10 Mg Tab PO 10 mg BID HEIDI Administration Famotidine 20 mg 12/13/22 09:00 12/13/22 07:29 Famotidine 20 Mg Tab PO 20 mg DAILY HEIDI Administration Lisinopril 10 mg 12/13/22 09:00 12/13/22 07:29 Lisinopril 10 Mg Tab PO 10 mg DAILY HEIDI Administration Metoprolol Succinate 100 mg 12/13/22 09:00 12/13/22 07:28 Metoprolol Succinate (Er) 100 Mg Tab.Er.24h PO 100 mg DAILY HEIDI Administration Nicotine 1 patch 12/12/22 22:00 12/13/22 07:29 Nicotine 21mg/24hr Patch TRANSDERM 1 patch DAILY HEIDI Administration Nitroglycerin 0.4 mg 12/12/22 18:39 Nitroglycerin Sl Tabs 0.4 Mg Tab SUBLINGUAL Q5M PRN Chest Pain Nitroglycerin 1 inch 12/13/22 00:00 12/13/22 04:44 Nitroglycerin Oint 1 Inch/Gm Packet TOPICAL 1 inch Q6HR HEIDI Administration Oxycodone/Acetaminophen 1 each 12/12/22 21:57 12/13/22 07:28 Oxycodone-Apap 7.5-325mg 1 Each Tab PO 1 each TID PRN Administration Pain Pregabalin 100 mg 12/13/22 09:00 12/13/22 07:29 Pregabalin 100 Mg Cap PO 100 mg TID HEIDI Administration Intake and Output 12/12/22 12/13/22 12/13/22 22:59 06:59 14:59 Other: Voiding Method Toilet # Voids 2 Weight 78.925 kg 12/12/22 17:23 12/12/22 17:23
[2022-12-13] MEDS ORDERED: ALPRAZolam 0.5 MG TAB PO STA (12:43)
[2022-12-13 12:52] VITALS: BP 132/83; RESP 20; TEMP 98.5
--- NOTE | 2022-12-13 14:55 | P.DS ---
Providers Date of admission: 12/12/22 18:39 Expected date of discharge: 12/13/22 Attending physician: Lesley Valdez DO Consults: 12/12/22 18:39 Consult Physician Urgent Consulting Provider: [facility] Consult Reason/Comments: Chest pain Do you want consulting provider notified?: Yes Primary care physician: Stated None Hospital Course: Discharge Diagnosis: Atrial fibrillation with RVR Atypical chest pain Coronary artery disease with history of mid RCA stent Hypertension Dyslipidemia Nicotine dependence Hospital Course: 57-year-old male with atrial fibrillation, CAD status post stents presenting with chest pain. EKG no acute distress changes, showing A. fib with RVR. Hemoglobin 16.3, white count 6.5 unremarkable, BUN 23, creatinine 1.19, sodium 137, potassium 4.7. Chest x-ray no acute pathology. Cardiology consulted. ACS ruled out. Troponin negative 3. TSH within normal limits. Metoprolol increased. Patient being discharged with close follow-up with cardiology. Patient seen and examined at bedside. Vital signs reviewed and stable. General: nontoxic, no distress, appears at stated age Derm: warm, dry Head: atraumatic, normocephalic, symmetric Eyes: EOMI, no lid lag, anicteric sclera Mouth: no lip lesion, mucus membranes moist Cardiovascular: S1S2 reg, no murmur Lungs: CTA bilateral, no rhonchi, no rales , no accessory muscle use Abdominal: soft, nontender to palpation, no guarding, no appreciable organomegaly Ext: no gross muscle atrophy, no edema, no contractures Neuro: CN II-XI grossly intact, no focal neuro deficits Psych: Alert, oriented, appropriate affect A total of 33 minutes of time were spent preparing this complex discharge summary. Patient was discharged on 12/13/22 at 14:51. Patient Condition at Discharge: Stable Plan - Discharge Summary Discharge Rx Participant: No New Discharge Prescriptions: New Metoprolol Succinate (ER) [Toprol XL] 100 mg PO BID #60 tab Continue Pregabalin [Lyrica] 100 mg PO TID Apixaban [Eliquis] 5 mg PO BID #20 tab Cyclobenzaprine [Flexeril] 10 mg PO BID Milk Thistle 150 mg PO DAILY Famotidine 20 mg PO DAILY Docusate [Colace] 100 mg PO DAILY Cranberry Fruit Extract [Cranberry] 500 mg PO DAILY methocarbamoL [Robaxin-750] 750 mg PO BID PRN PRN Reason: Muscle Spasm Atorvastatin [Lipitor] 40 mg PO HS lisinopriL [Prinivil] 10 mg PO DAILY Nitroglycerin Sl Tabs [Nitrostat] 0.4 mg SL Q5M PRN PRN Reason: Chest Pain Furosemide [Lasix] 20 mg PO DAILY Aspirin 81 mg PO DAILY Turmeric Root Extract [Turmeric] 500 mg PO DAILY oxyCODONE-APAP 7.5-325MG [Percocet 7.5-325 mg] 1 tab PO TID Flaxseed Oil 1 cap PO DAILY Discontinued Metoprolol Succinate (ER) [Toprol Xl] 100 mg PO DAILY Discharge Medication List Pregabalin [Lyrica] 100 mg PO TID 10/30/20 [History] lisinopriL [Prinivil] 10 mg PO DAILY 10/30/20 [History] Apixaban [Eliquis] 5 mg PO BID #20 tab 11/01/20 [Rx] Aspirin 81 mg PO DAILY 01/28/21 [History] Cyclobenzaprine [Flexeril] 10 mg PO BID 01/28/21 [History] Furosemide [Lasix] 20 mg PO DAILY 01/28/21 [History] Nitroglycerin Sl Tabs [Nitrostat] 0.4 mg SL Q5M PRN 01/28/21 [History] Cranberry Fruit Extract [Cranberry] 500 mg PO DAILY 01/22/22 [History] Docusate [Colace] 100 mg PO DAILY 01/22/22 [History] Famotidine 20 mg PO DAILY 01/22/22 [History] Milk Thistle 150 mg PO DAILY 01/22/22 [History] Turmeric Root Extract [Turmeric] 500 mg PO DAILY 01/22/22 [History] Atorvastatin [Lipitor] 40 mg PO HS 12/12/22 [History] Flaxseed Oil 1 cap PO DAILY 12/12/22 [History] methocarbamoL [Robaxin-750] 750 mg PO BID PRN 12/12/22 [History] oxyCODONE-APAP 7.5-325MG [Percocet 7.5-325 mg] 1 tab PO TID 12/12/22 [History] Metoprolol Succinate (ER) [Toprol XL] 100 mg PO BID #60 tab 12/13/22 [Rx] Follow up Appointment(s)/Referral(s): Cassius Biggs MD [STAFF PHYSICIAN] - 1 Week None,Stated [Primary Care Provider] - 1-2 days Patient Instructions/Handouts: A-fib (Atrial Fibrillation) (DC), Chest Pain (DC) Activity/Diet/Wound Care/Special Instructions: Please see your seo team lead. Discharge Disposition: HOME SELF-CARE
[2022-12-13] MEDS ORDERED: ATORVASTATIN 40 MG TAB PO SCH (21:00)
== END 2022-12-13 16:27 | disposition home or self-care (01) ==
LOC: EC 16:40 → INTOOBSV 18:39 → 3SCARD 18:39
PROVIDERS: ADMIT Internal Medicine; ATTEND Internal Medicine
DX: R07.89 Other chest pain (principal); I48.19 Other persistent atrial fibrillation; I25.10 Atherosclerotic heart disease of native coronary artery without angina pectoris; I10 Essential (primary) hypertension; E78.00 Pure hypercholesterolemia, unspecified; K21.9 Gastro-esophageal reflux disease without esophagitis; M79.7 Fibromyalgia; F31.9 Bipolar disorder, unspecified; F41.0 Panic disorder [episodic paroxysmal anxiety]; E11.9 Type 2 diabetes mellitus without complications; F17.200 Nicotine dependence, unspecified, uncomplicated; I25.2 Old myocardial infarction; Z95.5 Presence of coronary angioplasty implant and graft; Z79.899 Other long term (current) drug therapy; Z79.01 Long term (current) use of anticoagulants; Z79.82 Long term (current) use of aspirin
CPT/HCPCS: 99285; 36415; 94760; 93005; 83880; 80061; 80053; 84443; 83735; 84484; 85025; 85610; 85730; 71046; G0378 ×2; S4990 ×2

== ENCOUNTER 2023-04-25 20:51 | Observation (INO) | payer MEDICARE, OTHER ==
[2023-04-25 21:25] LABS: Basophils % (A) 0 %; Eosinophils # (A) 0.1 k/uL (0-0.7); Eosinophils % (A) 3 %; HCT 48.5 % (39.0-53.0); Lymphocytes # (A) 1.9 k/uL (1.0-4.8); Lymphocytes % (A) 34 %; MCH 29.8 pg (25.0-35.0); MCV 90.3 fL (80.0-100.0); Mean Platelet Volume 7.6; Monocytes # (A) 0.3 k/uL (0-1.0); Monocytes % (A) 5 %; Neutrophils # (A) 3.1 k/uL (1.3-7.7); Neutrophils % (A) 56 %; Platelet Count 243 k/uL (150-450); RBC 5.37 m/uL (4.30-5.90); RDW 12.6 % (11.5-15.5); WBC 5.5 k/uL (3.8-10.6)
--- NOTE | 2023-04-25 21:31 | XR ---
EXAMINATION TYPE: XR chest 2V DATE OF EXAM: 04/25/2023 COMPARISON: 12/12/2022 HISTORY: Chest pain TECHNIQUE: Frontal and lateral views of the chest are obtained. FINDINGS: The lungs are clear and there is no abnormal airspace or interstitial opacity. There is no pleural effusion or pneumothorax. There is moderate cardiomegaly. Pulmonary vasculature is not congested. The osseous structures are intact IMPRESSION: 1. Moderate cardiomegaly unchanged compared to previous. 2. No acute cardiopulmonary disease.
[2023-04-25 21:34] LABS: Partial Thromboplastin Time 25.1 sec (22.0-30.0); Prothrombin Time 11.1 sec (10.0-12.5)
[2023-04-25 21:47] LABS: ALT 31 U/L (4-49); AST 28 U/L (17-59); African American GFR (CKD) >90 (>60 ml/min/1.73 sqM); Albumin 4.1 g/dL (3.5-5.0); Alkaline Phosphatase 78 U/L (38-126); Anion Gap 7 mmol/L; Blood Urea Nitrogen 18 mg/dL (9-20); Calcium 9.6 mg/dL (8.4-10.2); Carbon Dioxide 24 mmol/L (22-30); Chloride 107 mmol/L (98-107); Glucose 108 mg/dL (74-99); Magnesium 1.9 mg/dL (1.6-2.3); Non-African American GFR(CKD) >90 (>60 ml/min/1.73 sqM); Potassium 3.9 mmol/L (3.5-5.1); Sodium 138 mmol/L (137-145); Total Bilirubin 0.6 mg/dL (0.2-1.3); Total Protein 6.6 g/dL (6.3-8.2)
--- NOTE | 2023-04-25 23:11 | ED ---
Chest Pain HPI - General Source: patient Mode of arrival: ambulatory Limitations: no limitations <Shirley Santo - Last Filed: 04/25/23 23:10> - History of Present Illness MD Complaint: chest pain -: hour(s) Onset: during rest Pain Location: right chest Pain Radiation: RUE Severity: moderate Quality: aching Consistency: now resolved Improves With: nothing Worsens With: nothing Anginal Symptoms: nausea Treatments Prior to Arrival: none <Burton Gillespie - Last Filed: 04/26/23 06:49> - General Chief Complaint: Chest Pain Stated Complaint: Heart Palp,Right Arm Pain Time Seen by Provider: 04/25/23 23:10 - History of Present Illness Initial Comments: 57-year-old male presenting with chief complaint of "I don't feel good". Patient states that he has been dealing with a lot of anxiety recently. He admits to chest pain, palpitations, nausea. (Shirley Santo) Patient's 57-year-old man who presents to evaluation for chest pain in the upper chest just to the right his sternum that came on around 6 PM. The patient had associated nausea and felt like his heart was pounding. Patient states that when the pain radiated to his right arm he felt he should be seen here. (Burton Gillespie) - Related Data Home Medications Medication Instructions Recorded Confirmed Pregabalin [Lyrica] 100 mg PO TID 10/30/20 12/12/22 lisinopriL [Prinivil] 10 mg PO DAILY 10/30/20 12/12/22 Aspirin 81 mg PO DAILY 01/28/21 12/12/22 Cyclobenzaprine [Flexeril] 10 mg PO BID 01/28/21 12/12/22 Furosemide [Lasix] 20 mg PO DAILY 01/28/21 12/12/22 Nitroglycerin Sl Tabs [Nitrostat] 0.4 mg SL Q5M PRN 01/28/21 12/12/22 Cranberry Fruit Extract [Cranberry] 500 mg PO DAILY 01/22/22 12/12/22 Docusate [Colace] 100 mg PO DAILY 01/22/22 12/12/22 Famotidine 20 mg PO DAILY 01/22/22 12/12/22 Milk Thistle 150 mg PO DAILY 01/22/22 12/12/22 Turmeric Root Extract [Turmeric] 500 mg PO DAILY 01/22/22 12/12/22 Atorvastatin [Lipitor] 40 mg PO HS 12/12/22 12/12/22 Flaxseed Oil 1 cap PO DAILY 12/12/22 12/12/22 methocarbamoL [Robaxin-750] 750 mg PO BID PRN 12/12/22 12/12/22 oxyCODONE-APAP 7.5-325MG [Percocet 1 tab PO TID 12/12/22 12/12/22 7.5-325 mg] Previous Rx's Medication Instructions Recorded Apixaban [Eliquis] 5 mg PO BID #20 tab 11/01/20 Metoprolol Succinate (ER) [Toprol 100 mg PO BID #60 tab 12/13/22 XL] Allergies Allergy/AdvReac Type Severity Reaction Status Date / Time No Known Allergies Allergy Verified 04/25/23 20:57 Review of Systems ROS Other: All systems not noted in ROS Statement are negative. <Shirley Santo - Last Filed: 04/25/23 23:10> ROS Other: All systems not noted in ROS Statement are negative. Constitutional: Denies: fever, chills Respiratory: Denies: cough, dyspnea, wheezes Cardiovascular: Reports: chest pain, palpitations. Denies: orthopnea, edema, syncope Gastrointestinal: Reports: nausea. Denies: abdominal pain, vomiting, diarrhea, constipation Genitourinary: Denies: dysuria, hematuria Musculoskeletal: Denies: back pain Skin: Denies: rash Neurological: Denies: headache, weakness, numbness <Burton Gillespie - Last Filed: 04/26/23 06:49> ROS Statement: Those systems with pertinent positive or pertinent negative responses have been documented in the HPI. EKG Findings - EKG Results: EKG: interpreted by ERMD EKG shows: atrial fibrillation (Rate 87 bpm) - Blocks, [place], Hypertrophy, ST Abn: AV and intraventricular conduction: right bundle branch block (fixed/intermittent, complete/incomplete) (Possible incomplete block) QRS axis and voltage: indeterminate axis Repolarization changes or abnormalities: nonspecific abnormality, ST segment, and/or T wave <Burton Gillespie - Last Filed: 04/26/23 06:49> Past Medical History Past Medical History: Atrial Fibrillation, Coronary Artery Disease (CAD), Chest Pain / Angina, Fibromyalgia, GERD/Reflux, Hyperlipidemia, Hypertension, Myocardial Infarction ([place]) Additional Past Medical History / Comment(s): restlesss leg syndrome, sleep study pt states "the results were really really bad." Pt states he has some blockage in his urethra. Pt states he may have "noncomplicated type 2 diabetes" and takes no diabetic medications at home. DDD. Last Myocardial Infarction Date:: 02/26/2019 History of Any Multi-Drug Resistant Organisms: None Reported Past Surgical History: Heart Catheterization, Heart Catheterization With Stent, Orthopedic Surgery Additional Past Surgical History / Comment(s): Pt states "I have had a nose job.". cataracts sx Past Anesthesia/Blood Transfusion Reactions: No Reported Reaction Additional Past Anesthesia/Blood Transfusion Reaction / Comment(s): Patient states he has never had a blood transfusion. no reaction to anesthesia Date of Last Stent Placement:: 03/29/19 Past Psychological History: Anxiety, Bipolar, Depression, Panic Disorder Smoking Status: Current every day smoker Past Alcohol Use History: None Reported Past Drug Use History: Marijuana - Past Family History Father Family Medical History: AFIB, Coronary Artery Disease (CAD) Additional Family Medical History / Comment(s): pacemaker, blood thinners Mother Family Medical History: Cancer Additional Family Medical History / Comment(s): lung cancer Sister(s) Family Medical History: Cancer Additional Family Medical History / Comment(s): at 50 from cancer, unsure of type <Shirley Santo - Last Filed: 04/25/23 23:10> General Exam Limitations: no limitations <Shirley Santo - Last Filed: 04/25/23 23:10> General appearance: alert, in no apparent distress Head exam: Present: atraumatic, normocephalic Eye exam: Present: normal appearance. Absent: scleral icterus, conjunctival injection Neck exam: Present: normal inspection Respiratory exam: Present: normal lung sounds bilaterally. Absent: respiratory distress, wheezes, rales, rhonchi, stridor Cardiovascular Exam: Present: regular rate, normal rhythm, normal heart sounds. Absent: systolic murmur, diastolic murmur, rubs, gallop GI/Abdominal exam: Present: soft. Absent: distended, tenderness, guarding, rebound, rigid, mass Extremities exam: Present: normal inspection, normal capillary refill. Absent: pedal edema, calf tenderness Back exam: Present: normal inspection. Absent: CVA tenderness (R), CVA tenderness (L) Neurological exam: Present: alert Skin exam: Present: warm, dry, intact, normal color. Absent: rash <Burton Gillespie - Last Filed: 04/26/23 06:49> - General Exam Comments Initial Comments: Visual Physical Exam Vital signs reviewed General: Well-appearing, nontoxic, no acute distress. Head: Normocephalic, atraumatic Eyes: PERRLA, EOMI ENT: Airway patent Chest: Nonlabored breathing Skin: No visual rash, normal skin tone Neuro: Alert and oriented 3 Musculoskeletal: No gross abnormalities (Shirley Santo) Course Vital Signs 04/25/23 04/25/23 04/26/23 20:54 23:55 03:00 Temperature 97.7 F 97.7 F Pulse Rate 70 75 68 Respiratory 18 20 18 Rate Blood Pressure 156/98 150/104 132/83 O2 Sat by Pulse 96 99 98 Oximetry 04/26/23 04/26/23 04:00 05:00 Temperature Pulse Rate 116 H 84 Respiratory 21 16 Rate Blood Pressure 108/89 120/93 O2 Sat by Pulse 100 97 Oximetry Disposition <Shirley Santo - Last Filed: 04/25/23 23:10> Is patient prescribed a controlled substance at d/c from ED?: No <Burton Gillespie - Last Filed: 04/26/23 06:49> Clinical Impression: Chest pain Disposition: ADMITTED IP TO THIS HOSP Condition: Good
[2023-04-26] MEDS ORDERED: MORPHINE SULFATE 4 MG/ML SYRINGE IV STA (02:36)
[2023-04-26] MEDS ORDERED: NITROGLYCERIN SL TABS 0.4 MG TAB SUBLINGUAL PRN (04:31)
[2023-04-26 06:23] VITALS: RESP 16
[2023-04-26] MEDS ORDERED: FAMOTIDINE 20 MG TAB PO SCH (09:00)
[2023-04-26] MEDS ORDERED: lisinopriL 10 MG TAB PO SCH (09:00)
[2023-04-26] MEDS ORDERED: PREGABALIN 100 MG CAP PO SCH (09:00)
[2023-04-26] MEDS ORDERED: oxyCODONE-APAP 7.5-325MG 1 EACH TAB PO SCH (09:00)
[2023-04-26] MEDS ORDERED: METOPROLOL SUCCINATE (ER) 100 MG TAB.ER.24H PO SCH (09:00)
[2023-04-26] MEDS ORDERED: APIXABAN 5 MG TAB PO SCH (09:00)
[2023-04-26] MEDS ORDERED: FUROSEMIDE 20 MG TAB PO SCH (09:00)
[2023-04-26] MEDS ORDERED: ASPIRIN 81 MG PO SCH (09:00)
[2023-04-26 10:25] VITALS: BP 129/80; PULSE 80; TEMP 98
--- NOTE | 2023-04-26 10:28 | CA ---
Transthoracic Echo Report Name: Carmine Walker Age: 57 Gender: M : 1965 Exam Date: 04/26/2023 08:18 Exam Location: [facility] Ht (in): 65 Wt (lb): 165 Ordering Physician: Abhijeet Grimaldo MD ([id number]) Attending/Referring Phys: Senior Client Advisor Brittney Melissa RDCS Procedure CPT: Indications: Chest Pain Cardiac Hx: Technical Quality: Fair Contrast 1: Total Dose (mL): Contrast 2: Total Dose (mL): MEASUREMENTS (Male / Female) Normal Values 2D ECHO LV Diastolic Diameter PLAX 4.1 cm 4.2 - 5.9 / 3.9 - 5.3 cm LV Systolic Diameter PLAX 2.3 cm IVS Diastolic Thickness 1.4 cm 0.6 - 1.0 / 0.6 - 0.9 cm LVPW Diastolic Thickness 1.4 cm 0.6 - 1.0 / 0.6 - 0.9 cm LV Relative Wall Thickness 0.7 RV Internal Dim ED PLAX 3.0 cm LA Volume 84.0 cm??? 18 - 58 / 22 - 52 cm??? LA Volume Index 44.9 cm???/m??? 16 - 28 cm???/m??? M-MODE Aortic Root Diameter MM 4.0 cm LA Systolic Diameter MM 4.5 cm LA Ao Ratio MM 1.1 AV Cusp Separation MM 2.5 cm DOPPLER AV Peak Velocity 141.2 cm/s AV Peak Gradient 8.0 mmHg AV Mean Velocity 93.2 cm/s AV Mean Gradient 3.9 mmHg AV Velocity Time Integral 25.2 cm AI Peak Velocity 325.0 cm/s AI Peak Gradient 42.3 mmHg AI Pressure Half Time 742.5 ms LVOT Peak Velocity 84.1 cm/s LVOT Peak Gradient 2.8 mmHg LVOT Velocity Time Integral 14.7 cm MV Area PHT 4.7 cm??? Mitral E Point Velocity 122.4 cm/s Mitral A Point Velocity 2.0 cm/s Mitral E to A Ratio 62.6 MV Deceleration Time 162.4 ms MV E' Velocity 5.4 cm/s Mitral E to MV E' Ratio 22.8 TR Peak Velocity 256.0 cm/s TR Peak Gradient 26.2 mmHg Right Ventricular Systolic Press 28.6 mmHg FINDINGS Left Ventricle Moderately increased left ventricular wall thickness. Left ventricular cavity size normal. No obvious regional wall motion abnormalities. Left ventricular ejection fraction is estimated at 55 %. Right Ventricle Normal right ventricular size and function. Right ventricular systolic pressure within normal limits. Right Atrium Mild right atrial dilatation. Left Atrium Severely increased left atrial volume. Mildly increased left atrial area. Mitral Valve Structurally normal mitral valve. [id number] mitral regurgitation. Aortic Valve Trileaflet aortic valve. No aortic stenosis. Mild aortic regurgitation. Tricuspid Valve Structurally normal tricuspid valve. Mild tricuspid regurgitation. Pulmonic Valve Trace pulmonic regurgitation. Pericardium Small pericardial effusion. Aorta Normal size aortic root and proximal ascending aorta. CONCLUSIONS LVH with preserved systolic function Small pericardial effusion with organized fibrinous material that is particularly prominent posteriorly Normal RV size and function Previewed by: Dr. Abhijeet Grimaldo MD (Electronically Signed) Final Date: 26 April 2023 10:27
--- NOTE | 2023-04-26 10:34 | P.CRDCN ---
History of Present Illness History of present illness: HISTORY OF PRESENT ILLNESS: This is a 57-year-old male with a past medical history significant for coronary artery disease with previous stenting, hypertension, hyperlipidemia, diabetes, valvular heart disease, atrial fibrillation, and nicotine dependence. Patient tania joness in the office with Dr. Biggs. We have been asked to see the patient in consultation for chest pain. Patient examined at the bedside. Patient presented to the hospital with a chief complaint of chest discomfort. The patient states he is having a lot of anxiety recently and is concerned about his health. At the time of examination, he denies chest pain or pressure. He denies shortness of breath. Vital signs are stable. Telemetry reveals atrial fibrillation with controlled ventricular rate. * EKG reveals atrial fibrillation with controlled ventricular rate * Chest xray moderate cardiomegaly. No acute cardiopulmonary disease * Laboratory data: Troponin negative 3. D-dimer less than 0.17. * Current home cardiac medications include lisinopril 10 mg daily, metoprolol succinate 100 mg twice a day, Lipitor 40 mg at night, and Eliquis 5 g twice a day * Most recent echocardiogram obtained in 2018 revealed ejection fraction 55-60%, trace MR * Cardiac catheterization history: March 2019 with stenting of the mid RCA * Patient underwent Lexiscan stress test in September 2022 which was negative for ischemia REVIEW OF SYSTEMS: At the time of my exam: CONSTITUTIONAL: Denies fever or chills. HEENT: Denies blurred vision, vision changes, or eye pain. Denies hemoptysis CARDIOVASCULAR: Denies chest pain. Denies orthopnea. Denies PND. Denies palpitations RESPIRATORY: Denies shortness of breath. GASTROINTESTINAL: Denies abdominal pain. Denies nausea or vomiting. HEMATOLOGIC: Denies bleeding disorders. GENITOURINARY: Denies any blood in urine. SKIN: Denies pruitis. Denies rash. PHYSICAL EXAM: VITAL SIGNS: Reviewed. GENERAL: Well-developed in no acute distress. HEENT: Head is normocephalic. Pupils are equal, round. Sclerae anicteric. Mucous membranes of the mouth are moist. Neck supple. No JVD or thyromegaly LUNGS: Respirations even and unlabored. Lungs essentially clear to auscultation bilaterally. HEART: Regular rate and rhythm. S1 and S2 heard. ABDOMEN: Soft. Nondistended. Nontender. EXTREMITIES: Normal range of motion. No clubbing or cyanosis. Peripheral pulses intact. No lower extremity edema NEUROLOGIC: Awake and alert. Oriented x 3. 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 Biggs Nurse practitioner note has been reviewed by physician. Signing provider agrees with the documented findings, assessment, and plan of care. Past Medical History Past Medical History: Atrial Fibrillation, Coronary Artery Disease (CAD), Chest Pain / Angina, Fibromyalgia, GERD/Reflux, Hyperlipidemia, Hypertension, Myocardial Infarction (ME) Additional Past Medical History / Comment(s): restlesss leg syndrome, sleep study pt states "the results were really really bad." Pt states he has some blockage in his urethra. Pt states he may have "noncomplicated type 2 diabetes" and takes no diabetic medications at home. DDD. Last Myocardial Infarction Date:: 02/26/2019 History of Any Multi-Drug Resistant Organisms: None Reported Past Surgical History: Heart Catheterization, Heart Catheterization With Stent, Orthopedic Surgery Additional Past Surgical History / Comment(s): Pt states "I have had a nose job.". cataracts sx Past Anesthesia/Blood Transfusion Reactions: No Reported Reaction Additional Past Anesthesia/Blood Transfusion Reaction / Comment(s): Patient states he has never had a blood transfusion. no reaction to anesthesia Date of Last Stent Placement:: 03/29/19 Past Psychological History: Anxiety, Bipolar, Depression, Panic Disorder Smoking Status: Current every day smoker Past Alcohol Use History: None Reported Past Drug Use History: Marijuana - Past Family History Father Family Medical History: AFIB, Coronary Artery Disease (CAD) Additional Family Medical History / Comment(s): pacemaker, blood thinners Mother Family Medical History: Cancer Additional Family Medical History / Comment(s): lung cancer Sister(s) Family Medical History: Cancer Additional Family Medical History / Comment(s): at 50 from cancer, unsure of type Medications and Allergies Home Medications Medication Instructions Recorded Confirmed Type Pregabalin [Lyrica] 100 mg PO TID 10/30/20 04/26/23 History lisinopriL [Prinivil] 10 mg PO DAILY 10/30/20 04/26/23 History Apixaban [Eliquis] 5 mg PO BID #20 tab 11/01/20 04/26/23 Rx Cyclobenzaprine [Flexeril] 10 mg PO BID 01/28/21 04/26/23 History Nitroglycerin Sl Tabs [Nitrostat] 0.4 mg SL Q5M PRN 01/28/21 04/26/23 History Docusate [Colace] 100 mg PO DAILY PRN 01/22/22 04/26/23 History Atorvastatin [Lipitor] 40 mg PO HS 12/12/22 04/26/23 History oxyCODONE-APAP 7.5-325MG [Percocet 1 tab PO TID PRN 12/12/22 04/26/23 History 7.5-325 mg] Metoprolol Succinate (ER) [Toprol 100 mg PO BID #60 tab 12/13/22 04/26/23 Rx XL] busPIRone HCL [Buspirone HCl] 10 mg PO TID 04/26/23 04/26/23 History Allergies Allergy/AdvReac Type Severity Reaction Status Date / Time No Known Allergies Allergy Verified 04/26/23 07:09 Physical Exam Vitals: Vital Signs Temp Pulse Pulse Resp BP BP Pulse Ox 04/26/23 07:00 98.0 F 80 16 129/80 100 04/26/23 05:00 84 16 120/93 97 04/26/23 04:00 116 H 21 108/89 100 04/26/23 03:00 68 18 132/83 98 04/25/23 23:55 97.7 F 75 20 150/104 99 04/25/23 20:54 97.7 F 70 18 156/98 96 Intake and Output 04/25/23 04/26/23 04/26/23 22:59 06:59 14:59 Intake Total 240 Balance 240 Intake: Oral 240 Other: # Voids 1 Weight 74.843 kg Results 04/25/23 21:00 04/25/23 21:00 Cardiac Enzymes 04/25/23 04/25/23 04/25/23 Range/Units 21:00 21:00 23:42 AST 28 (17-59) U/L Troponin I 0.017 0.018 (0.000-0.034) ng/mL 04/26/23 Range/Units 07:31 AST (17-59) U/L Troponin I 0.014 (0.000-0.034) ng/mL Coagulation 04/25/23 Range/Units 21:00 PT 11.1 (10.0-12.5) sec APTT 25.1 (22.0-30.0) sec CBC 04/25/23 Range/Units 21:00 WBC 5.5 (3.8-10.6) k/uL RBC 5.37 (4.30-5.90) m/uL Hgb 16.0 (13.0-17.5) gm/dL Hct 48.5 (39.0-53.0) % Plt Count 243 (150-450) k/uL Comprehensive Metabolic Panel 04/25/23 Range/Units 21:00 Sodium 138 (137-145) mmol/L Potassium 3.9 (3.5-5.1) mmol/L Chloride 107 (98-107) mmol/L Carbon Dioxide 24 (22-30) mmol/L BUN 18 (9-20) mg/dL Creatinine 0.72 (0.66-1.25) mg/dL Glucose 108 H (74-99) mg/dL Calcium 9.6 (8.4-10.2) mg/dL AST 28 (17-59) U/L ALT 31 (4-49) U/L Alkaline Phosphatase 78 (38-126) U/L Total Protein 6.6 (6.3-8.2) g/dL Albumin 4.1 (3.5-5.0) g/dL Current Medications Generic Name Dose Route Start Last Admin Trade Name Freq PRN Reason Stop Dose Admin Apixaban 5 mg 04/26/23 09:00 04/26/23 09:16 Apixaban 5 Mg Tab PO 5 mg BID HEIDI Administration Protocol Aspirin 81 mg 04/26/23 09:00 04/26/23 09:16 Aspirin 81 Mg PO 81 mg DAILY HEIDI Administration Atorvastatin Calcium 40 mg 04/26/23 21:00 Atorvastatin 40 Mg Tab PO HS [facility] Famotidine 20 mg 04/26/23 09:00 04/26/23 09:16 Famotidine 20 Mg Tab PO 20 mg DAILY HEIDI Administration Furosemide 20 mg 04/26/23 09:00 04/26/23 09:17 Furosemide 20 Mg Tab PO 20 mg DAILY HEIDI Administration Lisinopril 10 mg 04/26/23 09:00 04/26/23 09:16 Lisinopril 10 Mg Tab PO 10 mg DAILY HEIDI Administration Metoprolol Succinate 100 mg 04/26/23 09:00 04/26/23 09:46 Metoprolol Succinate (Er) 100 Mg Tab.Er.24h PO 100 mg BID HEIDI Administration Nitroglycerin 0.4 mg 04/26/23 04:31 Nitroglycerin Sl Tabs 0.4 Mg Tab SUBLINGUAL Q5M PRN Chest Pain Oxycodone/Acetaminophen 1 each 04/26/23 09:00 04/26/23 09:16 Oxycodone-Apap 7.5-325mg 1 Each Tab PO 1 each TID HEIDI Administration Pregabalin 100 mg 04/26/23 09:00 04/26/23 09:16 Pregabalin 100 Mg Cap PO 100 mg TID HEIDI Administration Intake and Output 04/25/23 04/26/23 04/26/23 22:59 06:59 14:59 Intake Total 240 Balance 240 Intake: Oral 240 Other: # Voids 1 Weight 74.843 kg 04/25/23 21:00 04/25/23 21:00
--- NOTE | 2023-04-26 12:50 | P.HPIM ---
History of Present Illness 57-year-old male came complaints of less than sided chest pain appears to be noncardiac musculoskeletal. Patient was evaluated by cardiology patient had a recent stress test that was negative. 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 D-dimer is negative chest x-ray did not show any pneumonia. Patient had history of coronary artery disease with stent to RCA in the past. REVIEW OF SYSTEMS: CONSTITUTIONAL: No fever, no malaise, no fatigue. HEENT: No recent visual problems or hearing problems. Denied any sore throat. CARDIOVASCULAR: No orthopnea, PND, no palpitations, no syncope. PULMONARY: No shortness of breath, no cough, no hemoptysis. GASTROINTESTINAL: No diarrhea, no nausea, no vomiting, no abdominal pain. NEUROLOGICAL: No headaches, no weakness, no numbness. HEMATOLOGICAL: Denies any bleeding or petechiae. GENITOURINARY: Denies any burning micturition, frequency, or urgency. MUSCULOSKELETAL/RHEUMATOLOGICAL: Denies any joint pain, swelling, or any muscle pain. ENDOCRINE: Denies any polyuria or polydipsia. The rest of the 14-point review of systems is negative. PHYSICAL EXAMINATION: GENERAL: The patient is alert and oriented x3, not in any acute distress. Well developed, well nourished. HEENT: Pupils are round and equally reacting to light. EOMI. No scleral icterus. No conjunctival pallor. Normocephalic, atraumatic. No pharyngeal erythema. No thyromegaly. CARDIOVASCULAR: S1 and S2 present. No murmurs, rubs, or gallops. PULMONARY: Chest is clear to auscultation, no wheezing or crackles. ABDOMEN: Soft, nontender, nondistended, normoactive bowel sounds. No palpable organomegaly. MUSCULOSKELETAL: No joint swelling or deformity. EXTREMITIES: No cyanosis, clubbing, or pedal edema. NEUROLOGICAL: Gross neurological examination did not reveal any focal deficits. SKIN: No rashes. Assessment and plan -Chest pain rule out acute cardio syndromes, rule out unstable angina troponins are negative patient chest pain is noncardiac and is musculoskeletal in nature chest pain resolved at this time will be discharged today with the above- mentioned plan -Coronary artery disease -Proximal atrial fibrillation for which patient is on anticoagulation which she will continue -Hypertension -Hyperlipidemia -Peripheral neuropathy Patient will be discharged today Past Medical History Past Medical History: Atrial Fibrillation, Coronary Artery Disease (CAD), Chest Pain / Angina, Fibromyalgia, GERD/Reflux, Hyperlipidemia, Hypertension, Myocardial Infarction ([place]) Additional Past Medical History / Comment(s): restlesss leg syndrome, sleep study pt states "the results were really really bad." Pt states he has some blockage in his urethra. Pt states he may have "noncomplicated type 2 diabetes" and takes no diabetic medications at home. DDD. Last Myocardial Infarction Date:: 02/26/2019 History of Any Multi-Drug Resistant Organisms: None Reported Past Surgical History: Heart Catheterization, Heart Catheterization With Stent, Orthopedic Surgery Additional Past Surgical History / Comment(s): Pt states "I have had a nose job.". cataracts sx Past Anesthesia/Blood Transfusion Reactions: No Reported Reaction Additional Past Anesthesia/Blood Transfusion Reaction / Comment(s): Patient states he has never had a blood transfusion. no reaction to anesthesia Date of Last Stent Placement:: 03/29/19 Past Psychological History: Anxiety, Bipolar, Depression, Panic Disorder Smoking Status: Unknown if ever smoked Past Alcohol Use History: None Reported Past Drug Use History: Marijuana Additional Drug Use History / Comment(s): patient states he smokes before bed - Past Family History Father Family Medical History: AFIB, Coronary Artery Disease (CAD) Additional Family Medical History / Comment(s): pacemaker, blood thinners Mother Family Medical History: Cancer Additional Family Medical History / Comment(s): lung cancer Sister(s) Family Medical History: Cancer Additional Family Medical History / Comment(s): at 50 from cancer, unsure of type Medications and Allergies Home Medications Medication Instructions Recorded Confirmed Type Pregabalin [Lyrica] 100 mg PO TID 10/30/20 04/26/23 History lisinopriL [Prinivil] 10 mg PO DAILY 10/30/20 04/26/23 History Apixaban [Eliquis] 5 mg PO BID #20 tab 11/01/20 04/26/23 Rx Cyclobenzaprine [Flexeril] 10 mg PO BID 01/28/21 04/26/23 History Nitroglycerin Sl Tabs [Nitrostat] 0.4 mg SL Q5M PRN 01/28/21 04/26/23 History Docusate [Colace] 100 mg PO DAILY PRN 01/22/22 04/26/23 History Atorvastatin [Lipitor] 40 mg PO HS 12/12/22 04/26/23 History oxyCODONE-APAP 7.5-325MG [Percocet 1 tab PO TID PRN 12/12/22 04/26/23 History 7.5-325 mg] Metoprolol Succinate (ER) [Toprol 100 mg PO BID #60 tab 12/13/22 04/26/23 Rx XL] busPIRone HCL 10 mg PO TID 04/26/23 04/26/23 History Allergies Allergy/AdvReac Type Severity Reaction Status Date / Time No Known Allergies Allergy Verified 04/26/23 07:09 Physical Exam Vitals: Vital Signs Temp Pulse Pulse Resp BP BP Pulse Ox 04/26/23 07:00 98.0 F 80 16 129/80 100 04/26/23 05:00 84 16 120/93 97 04/26/23 04:00 116 H 21 108/89 100 04/26/23 03:00 68 18 132/83 98 04/25/23 23:55 97.7 F 75 20 150/104 99 04/25/23 20:54 97.7 F 70 18 156/98 96 Intake and Output 04/25/23 04/26/23 04/26/23 22:59 06:59 14:59 Intake Total 240 Balance 240 Intake: Oral 240 Other: # Voids 1 Weight 74.843 kg 74.843 kg Results CBC & Chem 7: 04/25/23 21:00 04/25/23 21:00 Labs: Abnormal Lab Results - Last 24 Hours (Table) 04/25/23 Range/Units 21:00 Glucose 108 H (74-99) mg/dL Thrombosis Risk Factor Assmnt - Choose All That Apply Any of the Below Risk Factors Present?: Yes Each Factor Represents 1 point: Age 41-60 years Other Risk Factors: No Thrombosis Risk Factor Assessment Total Risk Factor Score: 1 Thrombosis Risk Factor Assessment Level: Low Risk
--- NOTE | 2023-04-26 12:51 | P.DS ---
Providers Date of admission: 04/26/23 04:31 Attending physician: Deborah Herring Consults: 04/26/23 04:31 Consult Physician Routine Consulting Provider: Cassius Biggs Consult Reason/Comments: chest pain Do you want consulting provider notified?: Yes Primary care physician: [facility] Hospital Course: 57-year-old male came complaints of less than sided chest pain appears to be noncardiac musculoskeletal. Patient was evaluated by cardiology patient had a recent stress test that was negative. 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 D-dimer is negative chest x-ray did not show any pneumonia. Patient had history of coronary artery disease with stent to RCA in the past. REVIEW OF SYSTEMS: CONSTITUTIONAL: No fever, no malaise, no fatigue. HEENT: No recent visual problems or hearing problems. Denied any sore throat. CARDIOVASCULAR: No orthopnea, PND, no palpitations, no syncope. PULMONARY: No shortness of breath, no cough, no hemoptysis. GASTROINTESTINAL: No diarrhea, no nausea, no vomiting, no abdominal pain. NEUROLOGICAL: No headaches, no weakness, no numbness. HEMATOLOGICAL: Denies any bleeding or petechiae. GENITOURINARY: Denies any burning micturition, frequency, or urgency. MUSCULOSKELETAL/RHEUMATOLOGICAL: Denies any joint pain, swelling, or any muscle pain. ENDOCRINE: Denies any polyuria or polydipsia. The rest of the 14-point review of systems is negative. PHYSICAL EXAMINATION: GENERAL: The patient is alert and oriented x3, not in any acute distress. Well developed, well nourished. HEENT: Pupils are round and equally reacting to light. EOMI. No scleral icterus. No conjunctival pallor. Normocephalic, atraumatic. No pharyngeal erythema. No thyromegaly. CARDIOVASCULAR: S1 and S2 present. No murmurs, rubs, or gallops. PULMONARY: Chest is clear to auscultation, no wheezing or crackles. ABDOMEN: Soft, nontender, nondistended, normoactive bowel sounds. No palpable organomegaly. MUSCULOSKELETAL: No joint swelling or deformity. EXTREMITIES: No cyanosis, clubbing, or pedal edema. NEUROLOGICAL: Gross neurological examination did not reveal any focal deficits. SKIN: No rashes. Assessment and plan -Chest pain rule out acute cardio syndromes, rule out unstable angina troponins are negative patient chest pain is noncardiac and is musculoskeletal in nature chest pain resolved at this time will be discharged today with the above- mentioned plan -Coronary artery disease -Proximal atrial fibrillation for which patient is on anticoagulation which she will continue -Hypertension -Hyperlipidemia -Peripheral neuropathy Patient will be discharged today Patient Condition at Discharge: Good Plan - Discharge Summary Discharge Rx Participant: Yes New Discharge Prescriptions: Continue Pregabalin [Lyrica] 100 mg PO TID Apixaban [Eliquis] 5 mg PO BID #20 tab Cyclobenzaprine [Flexeril] 10 mg PO BID Docusate [Colace] 100 mg PO DAILY PRN PRN Reason: Constipation Atorvastatin [Lipitor] 40 mg PO HS Metoprolol Succinate (ER) [Toprol XL] 100 mg PO BID #60 tab busPIRone HCL 10 mg PO TID lisinopriL [Prinivil] 10 mg PO DAILY Nitroglycerin Sl Tabs [Nitrostat] 0.4 mg SL Q5M PRN PRN Reason: Chest Pain oxyCODONE-APAP 7.5-325MG [Percocet 7.5-325 mg] 1 tab PO TID PRN PRN Reason: Pain Discharge Medication List Pregabalin [Lyrica] 100 mg PO TID 10/30/20 [History] lisinopriL [Prinivil] 10 mg PO DAILY 10/30/20 [History] Apixaban [Eliquis] 5 mg PO BID #20 tab 11/01/20 [Rx] Cyclobenzaprine [Flexeril] 10 mg PO BID 01/28/21 [History] Nitroglycerin Sl Tabs [Nitrostat] 0.4 mg SL Q5M PRN 01/28/21 [History] Docusate [Colace] 100 mg PO DAILY PRN 01/22/22 [History] Atorvastatin [Lipitor] 40 mg PO HS 12/12/22 [History] oxyCODONE-APAP 7.5-325MG [Percocet 7.5-325 mg] 1 tab PO TID PRN 12/12/22 [History] Metoprolol Succinate (ER) [Toprol XL] 100 mg PO BID #60 tab 12/13/22 [Rx] busPIRone HCL 10 mg PO TID 04/26/23 [History] Follow up Appointment(s)/Referral(s): Humaira Espinal MD [Primary Care Provider] - 3 Days Discharge Disposition: HOME SELF-CARE
[2023-04-26] MEDS ORDERED: ATORVASTATIN 40 MG TAB PO SCH (21:00)
[2023-04-27] MEDS ORDERED: ASPIRIN 325 MG TAB PO SCH (09:00)
== END 2023-04-26 13:56 | disposition home or self-care (01) ==
LOC: EC 20:51 → 6NMEDSUR 04-26 04:31
PROVIDERS: ADMIT Hospitalist; ATTEND Hospitalist
DX: R07.9 Chest pain, unspecified (principal); I48.0 Paroxysmal atrial fibrillation; I25.10 Atherosclerotic heart disease of native coronary artery without angina pectoris; K21.9 Gastro-esophageal reflux disease without esophagitis; E78.5 Hyperlipidemia, unspecified; I10 Essential (primary) hypertension; F41.0 Panic disorder [episodic paroxysmal anxiety]; F31.9 Bipolar disorder, unspecified; E11.42 Type 2 diabetes mellitus with diabetic polyneuropathy; I25.2 Old myocardial infarction; F17.200 Nicotine dependence, unspecified, uncomplicated; Z95.5 Presence of coronary angioplasty implant and graft; Z79.01 Long term (current) use of anticoagulants; Z79.82 Long term (current) use of aspirin; Z79.899 Other long term (current) drug therapy
CPT/HCPCS: 99285; 36415; 93005; 93306; 85379; 80053; 83735; 84484 ×2; 85025; 85610; 85730; 71046; G0378

== ENCOUNTER 2023-05-22 12:03 | Day surgery (SDC) | payer MEDICARE, OTHER ==
[2023-05-17 13:14] VITALS: BMI 27.4
[~2023-05-22 12:03] MED LIST: LIDOCAINE 1% (10MG/ML) FOR IV START INTRADERMA PRN
[2023-05-22 13:05] VITALS: RESP 16; TEMP 97
[2023-05-22] MEDS: LACTATED RINGERS 1,000 ML IV SCH (13:15)
[2023-05-22 13:18] LABS: Glucose,Whole Blood 107 mg/dL (70-110)
[2023-05-22] MEDS ORDERED: LIDOCAINE 1% INJ 10MG/ML (20 ML MDV) ONE (14:12)
[2023-05-22] MEDS ORDERED: PROPOFOL 10 MG/ML 20 ML VIAL IV ONE (14:12)
--- NOTE | 2023-05-22 14:21 | P.GSHP ---
History of Present Illness H&P Date: 05/22/23 Chief Complaint: History of peptic ulcer disease, screening colonoscopy 57-year-old male who is has a previous history of peptic ulcers. Patient is today for screening colonoscopy and EGD. Past Medical History Past Medical History: Atrial Fibrillation, Coronary Artery Disease (CAD), Chest Pain / Angina, Fibromyalgia, GERD/Reflux, Hyperlipidemia, Hypertension, Myocardial Infarction ([place]) Additional Past Medical History / Comment(s): restlesss leg syndrome, Pt states he has some blockage in his urethra. takes no diabetic medications at home. DDD. CARPAL TUNNEL BILAT WRISTS, NEUROPATHY, HX STOMACH ULCERS, AND BLOOD IN STOOL Last Myocardial Infarction Date:: 02/26/2019 History of Any Multi-Drug Resistant Organisms: None Reported Past Surgical History: Heart Catheterization, Heart Catheterization With Stent Additional Past Surgical History / Comment(s): Pt states "I have had a nose job.". cataracts sx. EGD Past Anesthesia/Blood Transfusion Reactions: No Reported Reaction Additional Past Anesthesia/Blood Transfusion Reaction / Comment(s): Patient states he has never had a blood transfusion. no reaction to anesthesia Date of Last Stent Placement:: 03/29/19 Smoking Status: Current every day smoker - Past Family History Father Family Medical History: AFIB, Coronary Artery Disease (CAD) Additional Family Medical History / Comment(s): pacemaker, blood thinners Mother Family Medical History: Cancer Additional Family Medical History / Comment(s): lung cancer Sister(s) Family Medical History: Cancer Additional Family Medical History / Comment(s): at 50 from cancer, unsure of type Medications and Allergies Home Medications Medication Instructions Recorded Confirmed Type Pregabalin [Lyrica] 100 mg PO TID 10/30/20 05/22/23 History lisinopriL [Prinivil] 10 mg PO DAILY 10/30/20 05/22/23 History Apixaban [Eliquis] 5 mg PO BID #20 tab 11/01/20 05/22/23 Rx Cyclobenzaprine [Flexeril] 10 mg PO BID 01/28/21 05/22/23 History Nitroglycerin Sl Tabs [Nitrostat] 0.4 mg SL Q5M PRN 01/28/21 05/22/23 History Docusate [Colace] 100 mg PO DAILY PRN 01/22/22 05/22/23 History Atorvastatin [Lipitor] 40 mg PO HS 12/12/22 05/22/23 History oxyCODONE-APAP 7.5-325MG [Percocet 1 tab PO TID PRN 12/12/22 05/22/23 History 7.5-325 mg] Metoprolol Succinate (ER) [Toprol 100 mg PO BID #60 tab 12/13/22 05/22/23 Rx XL] busPIRone HCL 10 mg PO TID 04/26/23 05/22/23 History Omeprazole [PriLOSEC] 20 mg PO AC-BRKFST 05/17/23 05/22/23 History Ondansetron [Zofran] 4 mg PO Q12HR PRN 05/17/23 05/22/23 History Allergies Allergy/AdvReac Type Severity Reaction Status Date / Time No Known Allergies Allergy Verified 05/22/23 12:56 Surgical - Exam Vital Signs Temp Pulse Resp BP Pulse Ox 97.0 F L 66 16 131/84 99 05/22/23 13:01 05/22/23 13:01 05/22/23 13:01 05/22/23 13:01 05/22/23 13:01 - General well developed, no distress - Eyes PERRL - ENT normal pinna, normal mucosa - Neck no masses - Respiratory normal expansion - Cardiovascular Rhythm: regular - Abdomen Abdomen: soft, non tender Assessment and Plan Assessment: peptic ulcer disease. Iz. Will perform EGD and screening colonoscopy.
--- NOTE | 2023-05-22 14:42 | P.OP ---
Date of Procedure: 05/22/23 Preoperative Diagnosis: History of peptic ulcer disease Screening colonoscopy Postoperative Diagnosis: Gastritis Sliding hiatal hernia Diverticulosis Procedure(s) Performed: EGD Colonoscopy Anesthesia: FAYA Surgeon: Solomon Arvizu Pathology: other (antrum, Esophagus) Condition: stable Disposition: PACU Description of Procedure: Patient was placed on the endoscopy table in the lateral position. He received IV sedation. The Leyla/oropharynx passed in the esophagus into the stomach. Scope was then placed through the pylorus. The first and second portion of the duodenum appeared normal. Scope was then brought back to the antrum but this appeared minimal Flaim. A biopsy performed. The scope was then retroflexed remainder of the stomach appeared normal. The patient had a small sliding hiatal hernia. The GE junction was at 40 cm the distal esophagus appeared normal. The proximal esophagus appropriate scope withdrawn the patient. Next digital rectal exam was perfo. This revealed no abnormalities. The flexible colonoscope was then placed the patient's anus and passed throughout the entire colon. The ileocecal valve was visualized. The cecum, ascending and transverse colon appeared norm normal. There were no abnormalities seen. In the sigmoid and descending colon there was extensive diverticular changes. The scope was able back to the rectum and this appeared normal. Scope withdrawn for the patient.
[2023-05-22 15:03] LABS: Glucose,Whole Blood 101 mg/dL (70-110)
[2023-05-22 15:34] VITALS: BP 121/81; PULSE 67
== END 2023-05-22 15:20 | disposition home or self-care (01) ==
LOC: ORWHC2ENDO 12:03
PROVIDERS: ATTEND Surgery
DX: Z12.11 Encounter for screening for malignant neoplasm of colon (principal); K29.70 Gastritis, unspecified, without bleeding; K44.9 Diaphragmatic hernia without obstruction or gangrene; K57.30 Diverticulosis of large intestine without perforation or abscess without bleeding; I25.10 Atherosclerotic heart disease of native coronary artery without angina pectoris; K27.9 Peptic ulcer, site unspecified, unspecified as acute or chronic, without hemorrhage or perforation; I25.2 Old myocardial infarction; E78.5 Hyperlipidemia, unspecified; K21.9 Gastro-esophageal reflux disease without esophagitis; I10 Essential (primary) hypertension; M79.7 Fibromyalgia; I48.91 Unspecified atrial fibrillation; G62.9 Polyneuropathy, unspecified; G56.03 Carpal tunnel syndrome, bilateral upper limbs; Z80.1 Family history of malignant neoplasm of trachea, bronchus and lung; F17.210 Nicotine dependence, cigarettes, uncomplicated; F12.90 Cannabis use, unspecified, uncomplicated; F41.0 Panic disorder [episodic paroxysmal anxiety]; F32.A Depression, unspecified; F41.9 Anxiety disorder, unspecified; Z95.5 Presence of coronary angioplasty implant and graft; Z82.49 Family history of ischemic heart disease and other diseases of the circulatory system; Z87.11 Personal history of peptic ulcer disease; Z79.01 Long term (current) use of anticoagulants; Z79.899 Other long term (current) drug therapy
CPT/HCPCS: 88305; 43239; J2001; J2704; G0121

== ENCOUNTER → 2023-09-14 | Outpatient (CLI) | payer MEDICARE, OTHER ==
[2023-09-14 15:55] LABS: HCT 52.3 % (39.6-50.0); HGB 16.8 g/dL (13.0-17.0); MCHC 32.1 g/dL (32.0-37.0); MCV 90.3 FL (80.0-97.0); Mean Platelet Volume 9.5 FL (9.5-12.2); NRBC Per 100 WBC 0 X 10*3/uL (0.00-0.01); Platelet Count 296 X 10*3/uL (140-440); RBC 5.79 X 10*6/uL (4.40-5.60); RDW 13.4 % (11.5-14.5)
[2023-09-14 16:17] LABS: ALT 21 U/L (10-49); AST 21 U/L (14-35); Albumin 4.6 g/dL (3.8-4.9); Alkaline Phosphatase 89 U/L (41-126); Blood Urea Nitrogen 13.2 mg/dL (9.0-27.0); Carbon Dioxide 26.4 mmol/L (21.6-31.8); Chloride 103 mmol/L (96-109); Chol/HDL Ratio 4.82 Ratio; Glucose 112 mg/dL (70-110); Potassium 4.9 mmol/L (3.5-5.5); Sodium 141 mmol/L (135-145); Total Bilirubin 0.4 mg/dL (0.3-1.2); Total Protein 6.6 g/dL (6.2-8.2)
== END | disposition home or self-care (01) ==
LOC: LABWHC1 10:59
PROVIDERS: ATTEND Internal Medicine Interventional Cardiology
DX: I48.19 Other persistent atrial fibrillation (principal); I34.0 Nonrheumatic mitral (valve) insufficiency; R06.02 Shortness of breath; R06.00 Dyspnea, unspecified
CPT/HCPCS: 36415; 80053; 80061; 85027

== ENCOUNTER → 2023-12-12 | Outpatient (CLI) | payer MEDICARE, OTHER ==
[2023-12-12 17:00] LABS: HCT 49.2 % (39.6-50.0); HGB 15.9 g/dL (13.0-17.0); MCH 29.8 pg (27.0-32.0); MCHC 32.3 g/dL (32.0-37.0); MCV 92.1 FL (80.0-97.0); Mean Platelet Volume 10.1 FL (9.5-12.2); NRBC Per 100 WBC 0 X 10*3/uL (0.00-0.01); Platelet Count 305 X 10*3/uL (140-440); RBC 5.34 X 10*6/uL (4.40-5.60); RDW 13.6 % (11.5-14.5); WBC 6.99 X 10*3/uL (4.50-10.00)
[2023-12-12 17:27] LABS: ALT 32 U/L (10-49); AST 29 U/L (14-35); Albumin 4.5 g/dL (3.8-4.9); Albumin/Globulin Ratio 2.14 Ratio (1.60-3.17); Alkaline Phosphatase 99 U/L (41-126); Blood Urea Nitrogen 14.4 mg/dL (9.0-27.0); Calcium 9.8 mg/dL (8.7-10.3); Carbon Dioxide 23.6 mmol/L (21.6-31.8); Chloride 104 mmol/L (96-109); Chol/HDL Ratio 3.35 Ratio; Globulin 2.1 g/dL (1.6-3.3); Glucose 128 mg/dL (70-110); LDL Cholesterol,Calculated 70.3 mg/dL (0.0-131.0); Potassium 4.8 mmol/L (3.5-5.5); Sodium 140 mmol/L (135-145); Total Bilirubin 0.5 mg/dL (0.3-1.2); Total Protein 6.6 g/dL (6.2-8.2)
== END | disposition home or self-care (01) ==
LOC: LABWHC1 11:08
PROVIDERS: ATTEND Internal Medicine Interventional Cardiology
DX: I48.19 Other persistent atrial fibrillation (principal); I34.0 Nonrheumatic mitral (valve) insufficiency; R06.00 Dyspnea, unspecified; R06.02 Shortness of breath
CPT/HCPCS: 36415; 80053; 80061; 85027